=== PATIENT | male | born 1990 | race African-American/Black ===

== ENCOUNTER 2023-03-24 07:33 | Emergency (ER) | payer MEDICAID, OTHER, SELFPAY ==
--- NOTE | ~2023-03-24 | XR_ITS ---
EXAMINATION: XR CHEST CLINICAL INFORMATION: Tachypnea. COMPARISON: None available. TECHNIQUE: 2 views of the chest were obtained. FINDINGS: No significant abnormality is noted involving the heart, lungs, mediastinum, bony thorax or soft tissues. XR/XR chest 2V IMPRESSION: No acute cardiopulmonary process.
[2023-03-24 07:38] VITALS: BP 174/103; PULSE 103; RESP 32; TEMP 36.9; O2SAT 100; BMI 42.1
--- NOTE | 2023-03-24 07:41 | ED.GENADULT ---
HPI - General Adult General Chief complaint: Anxiety Stated complaint: SOB Time Seen by Provider: 03/24/23 07:35 Source: patient Mode of arrival: ambulatory Limitations: no limitations History of Present Illness HPI narrative: Patient is a 32-year-old male with history of panic attacks presenting to the emergency department with shortness of breath. Patient reports that after he and his daughter ate the same food yesterday, they both developed nausea, vomiting, and diarrhea last night. 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 Patient states that he did not want to call out sick as he just started a new job. He reports that on his way to the emergency department he developed shortness of breath an tingling to the fingers of both hands. He denies any fevers or abdominal pain. He denies any chest pain. He denies current nausea. MD complaint: tachypnea, nausea, vomiting, diarrhea Onset (ago): hour(s) Location: chest and abdomen Radiation: non-radiation Associated symptoms: nausea/vomiting and shortness of breath Treatments prior to arrival: none Related Data Previous Rx's Medication Instructions Recorded ondansetron 4 mg disintegrating 4 mg PO Q8H PRN nausea and 03/24/23 tablet vomiting #10 tabs Allergies Allergy/AdvReac Type Severity Reaction Status Date / Time No Known Allergies Allergy Verified 03/24/23 07:43 Review of Systems Review of Systems: Yes all other systems are reviewed and are negative Constitutional: Constitutional: Reports as per HPI, Denies chills, Denies excessive sweating, Denies fever(s), Denies headache(s) and Denies weakness Eyes: Eyes: Reports no additional eye complaints ENT: Reports system reviewed and no additional complaints, except as documented, Denies dizziness and Denies headache(s) Cardiovascular: Cardiovascular: Denies Abdominal Distension, Denies chest pain, Denies lightheadedness, Denies Loss of Consciousness, Denies palpitations and Reports dyspnea Respiratory: Respiratory: Denies cough, Reports dyspnea and Denies wheezing Gastrointestinal: Gastrointestinal: Denies abdominal pain, Denies melena, Denies hematochezia, Denies coffee ground emesis, Reports diarrhea, Reports vomiting and Denies hematemesis Genitourinary: Genitourinary: Reports no additional male genitourinary complaints Musculoskeletal: Musculoskeletal: Reports numbness and Reports tingling Comments: numbness and tingling to all fingers Integumentary/Breasts: Skin/Breast: Reports system reviewed and no additional complaints, except as docu Neurologic: Reports system reviewed and no additional complaints, except as documented, Denies dizziness, Denies headache(s), Reports numbness, Reports tingling and Denies weakness Psychiatric: Psychiatric: Reports no additional psychiatric complaints Endocrine: Endocrine: Denies excessive sweating and Denies palpitations Hematologic/Lymphatic: Hematologic/Lymphatic: Reports no additional hematologic/lymphatic complaints Allergic/Immunologic: Allergic/Immunologic: Reports no additional allergic/immunologic complaints and Denies wheezing PMF Social History Social History Advance Directives: No Advance Directives Information Provided: Yes Physical Exam ED Vital Signs: Vital Signs - 24 hr 03/24/23 07:38 03/24/23 08:22 Temperature 98.4 F 97.9 F Pulse Rate 103 H 74 Respiratory Rate 32 H 16 Blood Pressure 174/103 H 127/72 Pulse Oximetry 100 99 Oxygen Delivery Method Room Air Room Air BMI result Body Mass Index 42.1 Const General: cooperative, healthy appearing and no acute distress Orientation/consciousness: oriented to person, oriented to place, oriented to time and patient oriented x3 Limitations: no limitations HENMT Head: Yes normocephalic and Yes atraumatic Ears: external ears normal General nose exam: Normal external nose present Face and sinus: Yes face symmetric Mouth: Normal oral and palatal mucosa present, lip normal, tongue normal, oropharynx normal, moist mucous membranes, no drooling, no muffled voice and No restricted motion Throat: Yes posterior oropharynx normal, Yes tonsils normal, Yes uvula midline and No uvular edema Eyes Sclerae: scleral abnormal bilateral scleral injection diffuse Pupils: Equal, round and reactive pupils present EOM: EOMs intact bilaterally Neck Neck: Yes normal visual inspection and Yes supple Chest Chest palpation & inspection: normal inspection of the chest and normal palpation of entire chest wall Resp Other: Patient able to slow respiratory rate with verbal redirection. Effort & Inspection: normal respiratory effort, able to speak in complete sentences, no cough, no respiratory distress, no retractions, tachypneic, no tripod positioning and no use of accessory muscles Auscultation: clear to auscultation bilaterally, no wheezes and lung sounds not diminished Cardio Rate: tachycardic (mildly tachycardic) Rhythm: regular rhythm Heart sounds: S1 normal heart sound present and S2 normal heart sound present Peripheral pulses: Peripheral pulses 2+ throughout GI Inspection: Yes normal to inspection Palpation (GI): Soft to palpation, nontender, no guarding, No hepatosplenomegaly present, no hernias, no masses and No Rebound tenderness present Auscultation: normoactive bowel sounds General: Yes no CVA tenderness Back/Spine/Pelvis Back: no CVA tenderness Skin General skin exam: elasticity normal and turgor normal Neuro General: oriented to person, oriented to place, oriented to time, patient oriented x3, moves all extremities, no focal motor deficits and CN's II-XI intact bilaterally Cranial nerves: Yes Equal, round and reactive pupils present Cognition (Neuro): normal cognition Extrem Other: no carpal-pedal spasms General: Yes full ROM, Yes no pedal edema and Yes no calf tenderness Right upper extremity: Extremity exam: right hand Details: normal to inspection, neuromotor exam normal, neurosensory exam normal, vascular exam Details: radial pulse present, ulnar pulse present and normal capillary refill and normal ROM of fingers Left upper extremity: normal to inspection, normal capillary refill and hand Details: normal to inspection, normal capillary refill, neuromotor exam normal, neurosensory exam normal and normal ROM of fingers Psych Mental Status: mental status grossly normal Affect: normal affect Thought process: Normal thought process present Course Reevaluation(s) Reevaluation #1: Patient much more comfortable, no longer tachypneic or tachycardic, labs reassuring. Will obtain chest x-ray. Time: 08:22 Reevaluation #2: FINDINGS: No significant abnormality is noted involving the heart, lungs, mediastinum, bony thorax or soft tissues. XR/XR chest 2V IMPRESSION: No acute cardiopulmonary process. Feel patient is safe for discharge home at this time. Instructed patient to follow-up with PCP within the next 2 days. Will prescribe Zofran as needed for nausea. Return precautions discussed at bedside. Medical Decision Making Medical Decision Making MDM Narrative: Patient is a 32-year-old male with history of panic attacks presenting to the emergency department with shortness of breath. On exam patient is awake, A+Ox3, nontoxic appearing, normal neurological exam without focal deficits, tachypneic though is able to slow respirations with verbal redirection, mildly tachycardic and hypertensive, afebrile, lungs CTA throughtout, abdomen soft and nontender, no rebound tenderness or guarding, full ROM to all fingers with cap refill <2 seconds. Low risk Wells score. Reported history and physical exam findings most consistent with viral gastroenteritis with concurrent anxiety. Unlikely anaphylaxis, ACS, CHF, asthma, PE, pneumothorax based on exam findings. Low suspicion for sepsis. Plan: labs, reassess Please refer to course for remaining clinical decision making. Differential Diagnosis Differential Diagnoses: The differential diagnosis associated with the presentation includes As above. Lab Data MDM Lab Attestation statement: I reviewed the patient's lab results. 03/24/23 07:53 03/24/23 07:53 Labs: Lab Results 03/24/23 03/24/23 Range/Units 07:53 07:53 WBC 10.2 (4.8-10.8) X10*3/uL RBC 4.97 (4.60-5.80) X10*6/uL Hgb 15.9 (14.0-18.0) g/dl Hct 46.7 (42.0-52.0) % MCV 94.0 (80.0-98.0) fL MCH 32.0 (27.0-33.0) pg MCHC 34.0 (31.0-36.0) g/dl RDW 13.2 (11.0-16.0) % Plt Count 251 (160-400) X10*3/uL MPV 10.5 (9.4-12.4) fL Immature Gran % (Auto) 0.4 (0.0-0.4) % Neut % (Auto) 55.3 (45-73) % Lymph % (Auto) 34.5 (20-40) % [place] % (Auto) 7.9 (2-11) % Eos % (Auto) 1.7 (0-4) % Baso % (Auto) 0.2 (0-2) % Lymph # (Auto) 3.5 (1.2-4.9) X10*3/uL [place] # (Auto) 0.8 (0.1-1.2) X10*3/uL Eos # (Auto) 0.2 (0.0-0.4) X10*3/uL Baso # (Auto) 0.0 (0.0-0.2) X10*3/uL Abs Immat Gran (auto) 0.04 H (0.00-0.03) X10*3/uL Absolute Neuts (auto) 5.7 (2.0-8.3) x10*3/uL Absolute Nucleated RBC 0.000 (0.0-0.012) X10*3/uL Nucleated RBC % (auto) 0.0 (0.0-0.2) /100WBC Sodium 139 (135-145) mmol/L Potassium 3.7 (3.3-5.1) mmol/L Chloride 108 (96-108) mmol/L Carbon Dioxide 18 L (22-29) mmol/L Anion Gap 17 (12-20) BUN 8 L (9-16) mg/dL Creatinine 1.05 (0.5-1.4) mg/dL Estim Creat Clear Calc 140.1 Estimated GFR > 60 Random Glucose 112 (60-115) mg/dL Calcium 9.8 (8.4-10.2) mg/dL Magnesium 1.8 (1.6-2.6) mg/dL Total Bilirubin 0.5 (0.0-1.0) mg/dL AST 24 (5-37) U/L ALT 6 (0-40) U/L Alkaline Phosphatase 82 (39-117) U/L Total Protein 7.9 (6.5-8.0) g/dL Albumin 4.5 (3.5-5.0) g/dL Lipase 22 (8-78) U/L External Record Review External record reviewed: Inpatient record, Office record and Outpatient record Discharge Plan Discharge Clinical Impression: Acute anxiety, Gastroenteritis Patient Disposition: Home, Self-Care Instructions: Gastroenteritis (DC), Acute Nausea and Vomiting (ED), Acute Diarrhea (ED), Panic Disorder (ED), Anxiety (ED) Additional Instructions: You were evaluated in the emergency department for shortness of breath which is likely related to anxiety. Your labs and x-ray did not show any evidence of a medical condition requiring emergent intervention at this time. You are being prescribed ondansetron which you may take every 8 hours as needed for nausea. You should progress your diet slowly, beginning with clear liquids, then progressing to bland food. Please follow-up with your primary care provider within 2 days. Return to the emergency department if you experience worsening or uncontrolled pain, inability to tolerate fluids by mouth, difficulty breathing, fevers 100.4? F or greater, persistent vomiting, or any other concerning symptoms. Prescriptions: New ondansetron 4 mg tablet,disintegrating 4 mg PO Q8H PRN (Reason: nausea and vomiting) Qty: 10 0RF Stand Alone Forms: Work/School Release
[2023-03-24 07:57] LABS: MANUAL DIFF FLAG NO
[2023-03-24 08:02] LABS: Basophils Percent Auto 0.2 % (0-2); Eosinophils Absolute Auto 0.2 X10*3/uL (0.0-0.4); Eosinophils Percent Auto 1.7 % (0-4); Hematocrit 46.7 % (42.0-52.0); Hemoglobin 15.9 g/dl (14.0-18.0); Imm Gran Abs Auto 0.04 X10*3/uL (0.00-0.03); Imm Gran Pct Auto 0.4 % (0.0-0.4); Lymphocytes Absolute Auto 3.5 X10*3/uL (1.2-4.9); Lymphocytes Percent Auto 34.5 % (20-40); Mean Platelet Volume 10.5 fL (9.4-12.4); Monocytes Absolute Auto 0.8 X10*3/uL (0.1-1.2); Monocytes Percent Auto 7.9 % (2-11); Neutrophils Absolute Auto 5.7 x10*3/uL (2.0-8.3); Neutrophils Percent Auto 55.3 % (45-73); Platelet Count 251 X10*3/uL (160-400); Red Blood Count 4.97 X10*6/uL (4.60-5.80); Red Cell Distribution Width 13.2 % (11.0-16.0); White Blood Count 10.2 X10*3/uL (4.8-10.8)
[2023-03-24 08:14] LABS: Alanine Aminotransferase 6 U/L (0-40); Albumin Level 4.5 g/dL (3.5-5.0); Alkaline Phosphatase 82 U/L (39-117); Anion Gap 17 (12-20); Aspartate Amino Transferase 24 U/L (5-37); Bilirubin Total 0.5 mg/dL (0.0-1.0); Blood Urea Nitrogen 8 mg/dL (9-16); Calcium 9.8 mg/dL (8.4-10.2); Carbon Dioxide 18 mmol/L (22-29); Chloride 108 mmol/L (96-108); Creatinine Clr Calc Pharmacy 140.1; Estimated Glomerular Filt Rate > 60; Glucose Random 112 mg/dL (60-115); Lipase 22 U/L (8-78); Magnesium 1.8 mg/dL (1.6-2.6); Potassium 3.7 mmol/L (3.3-5.1); Sodium 139 mmol/L (135-145); Total Protein 7.9 g/dL (6.5-8.0)
[2023-03-24 08:22] VITALS: BP 127/72; PULSE 74; RESP 16; TEMP 36.6; O2SAT 99
== END 2023-03-24 09:31 | disposition home or self-care (01) ==
PROVIDERS: Registered Nurse Emergency; Emergency Provider Emergency Medicine Emergency Medical Services
DX: K52.9 Noninfective gastroenteritis and colitis, unspecified (principal); F41.1 Generalized anxiety disorder; F43.0 Acute stress reaction; R06.02 Shortness of breath; Z79.899 Other long term (current) drug therapy
CPT/HCPCS: 36415; 71046; 80053; 83690; 83735; 85025; 99283; 99284

== ENCOUNTER 2023-12-21 07:50 | Emergency (ER) | payer OTHER, SELFPAY ==
--- NOTE | ~2023-12-21 | XR_ITS ---
EXAMINATION: XR CHEST CLINICAL INFORMATION: Chest pain COMPARISON: 03/24/2023 TECHNIQUE: 2 views of the chest were obtained. FINDINGS: Lungs are well-inflated and clear. Trachea is midline in position. No interstitial disease, consolidation or mass. No pleural effusion or pneumothorax. Cardiac silhouette and pulmonary vessels are normal in size. The mediastinum and omar have normal contour. The visualized bones and upper abdomen are unremarkable. XR/XR chest 2V IMPRESSION: Lungs have a normal appearance. No acute cardiopulmonary abnormality.
--- NOTE | 2023-12-21 07:53 | ED_ITS ---
HPI - General Adult General Chief complaint: Chest Pain Stated complaint: LETHARGIC,CP Time Seen by Provider: 12/21/23 07:53 Source: patient Mode of arrival: ambulatory Limitations: no limitations History of Present Illness HPI narrative: Patient is a 33 year old assigned male at with a history of anxiety presenting to the emergency department today with chest pain. Patient states that since yesterday he has had lower chest / epigastric pain. Patient states that this has happened before and they told him it was anxiety. Patient denies any dizziness, lightheadedness, abdominal pain, nausea, vomiting, fever, chills, blurry vision, double vision, loss of vision, difficulty breathing, shortness of breath, back pain, night sweats, pain with urination, increased urinary frequency, increased urinary urgency, blood in his urine or stool, syncope or a near syncopal episode, recent trauma or falls, bowel incontinence, bladder incontinence, bowel retention, bladder retention, or any other complaints at this time. Onset (ago): day(s) (1) Location: chest Severity: mild Severity scale (1-10): 3 Quality: stabbing Pain Consistency: constant Relieving factors: none Exacerbating factors: none Associated symptoms: chest pain Treatments prior to arrival: none Related Data Previous Rx's Medication Instructions Recorded ondansetron 4 mg disintegrating 4 mg PO Q8H PRN nausea and 03/24/23 tablet vomiting #10 tabs Allergies Allergy/AdvReac Type Severity Reaction Status Date / Time No Known Allergies Allergy Verified 03/24/23 07:43 Review of Systems 2 Constitutional: Constitutional: Reports no additional constitutional complaints, Denies chills, Denies fever(s) and Denies night sweats Eyes: Eyes: Reports no additional eye complaints, Denies blurry vision, Denies change in vision, Denies diplopia, Denies eye discharge, Denies loss of vision and Denies eye pain ENT: Denies dizziness Cardiovascular: Cardiovascular: Reports no additional cardiovascular complaints, Reports chest pain, Denies lightheadedness, Denies Loss of Consciousness and Denies dyspnea Respiratory: Respiratory: Reports no additional respiratory complaints and Denies dyspnea Gastrointestinal: Gastrointestinal: Reports no additional gastrointestinal complaints, Denies abdominal pain, Denies melena, Denies hematochezia, Denies change in bowel habits and Denies change in stool character Genitourinary: Genitourinary: Reports no additional male genitourinary complaints, Denies hematuria, Denies oliguria, Denies difficulty urinating, Denies dysuria, Denies urinary frequency, Denies urinary hesitancy, Denies urinary incontinence and Denies urinary urgency Musculoskeletal: Musculoskeletal: Reports no additional musculoskeletal complaints, Denies numbness and Denies tingling Neurologic: Denies dizziness, Denies loss of vision, Denies numbness and Denies tingling Psychiatric: Psychiatric: Reports no additional psychiatric complaints Endocrine: Endocrine: Reports no additional endocrine complaints Hematologic/Lymphatic: Hematologic/Lymphatic: Reports no additional hematologic/lymphatic complaints Allergic/Immunologic: Allergic/Immunologic: Reports no additional allergic/immunologic complaints PMFSH Past Medical History Attestation statement: The following information was validated with the patient. Source: old records reviewed and nursing notes reviewed Social History Social History Smoked in Last 30 Days: Yes Use of substances other than those prescribed or required for medical reasons: No Advance Directives: No Advance Directives Information Provided: No Physical Exam ED Vital Signs: Vital Signs - 24 hr 12/21/23 08:10 12/21/23 09:36 Temperature 98.5 F 97.8 F Pulse Rate 58 71 Respiratory Rate 16 14 Blood Pressure 138/87 130/83 Pulse Oximetry 94 99 Oxygen Delivery Method Room Air Room Air BMI result Body Mass Index 43.1 Const General: cooperative, no acute distress, alert and awake Nutritional Appearance: well nourished Orientation/consciousness: patient oriented x3 Limitations: no limitations [facility] Head: Yes normal to inspection and Yes atraumatic Ears: hearing grossly normal bilaterally and external ears normal General nose exam: Normal external nose present, no nasal discharge noted and no epistaxis Face and sinus: Yes normal facial exam, No abrasion and No laceration Mouth: Normal oral and palatal mucosa present, no drooling and no muffled voice Eyes General: appearance normal, both eyes and all related structures Periorbital: periorbital findings normal Eyelids: Yes eyelids normal Conjunctivae: conjunctivae normal Pupils: Equal, round and reactive pupils present EOM: EOMs intact bilaterally Neck Neck: Yes normal visual inspection, Yes full ROM and Yes no lymphadenopathy Chest Chest palpation & inspection: normal inspection of the chest Resp Effort & Inspection: normal respiratory effort and able to speak in complete sentences Auscultation: clear to auscultation bilaterally Cardio Rate: regular rate Rhythm: regular rhythm GI Inspection: Yes normal to inspection Neuro General: patient oriented x3 and moves all extremities Cranial nerves: Yes Equal, round and reactive pupils present Cognition (Neuro): normal cognition Motor exam (neuro): 5/5 motor strength present throughout Sensory Exam: Normal double simultaneous stimulation for sensation Coordination: [id number] test normal Extrem General: Yes normal to inspection, Yes full ROM and Yes capillary refill normal Psych Appearance: grossly normal Mental Status: mental status grossly normal Affect: normal affect Attitude: cooperative Thought process: Normal thought process present Thought content: Normal thought content present Insight: Good insight present (Psych) Medications Administered Discontinued Medications Generic Name Dose Route Start Last Admin Trade Name Freq PRN Reason Stop Dose Admin Al Hydroxide/Mg Hydroxide 15 ml 12/21/23 07:59 12/21/23 09:18 Magnesium Hydrox/Alum Hydrox 30 Ml Oral.Susp PO 12/21/23 08:00 15 ml ONCE ONE Administration Pantoprazole Sodium 40 mg 12/21/23 07:59 12/21/23 09:19 Pantoprazole Sodium 40 Mg/10 Ml Vial IVPUSH 12/21/23 08:00 40 mg ONCE ONE Administration Medical Decision Making Medical Decision Making [facility] Narrative: Patient is a 33 year old assigned male at with a history of anxiety presenting to the emergency department today with chest pain. Patient's physical exam was unremarkable. Patient's blood work was unremarkable. Patient's urine showed no acute process. Patient's EKG was unremarkable. Patient's chest x-ray showed no acute process. I explained my physical exam findings as well as all test results to the patient. I answered all questions asked by the patient. I stressed the importance of the patient taking his medication as prescribed. I stressed the importance of the patient following up with his primary care provider. I stressed the importance of the patient returning to the emergency department immediately if his symptoms were to worsen or if he were to develop any dizziness, shortness of breath, difficulty breathing, chest pain, blurry vision, loss of vision, nausea, vomiting, abdominal pain, fever, chills, back pain, or any other complaints. Patient verbalized agreement and understanding with this treatment plan and discharge. Differential Diagnosis Differential Diagnoses: The differential diagnosis associated with the presentation includes Atypical chest pain Chest pain NSTEMI STEMI GERD Admission/Observation Consideration of admission/observation: Escalation of care including admission/observation considered Patient would have been admitted to the hospital had his work up had any findings where hospital admission was appropriate and his clinical presentation warranted hospital admission. Lab Data [facility] Lab Attestation statement: I reviewed the patient's lab results. My interpretation of these results are in the [facility] Rationale portion of this note. 12/21/23 08:47 12/21/23 08:47 Labs: Lab Results 12/21/23 12/21/23 Range/Units 08:47 09:11 WBC 8.0 (4.8-10.8) X10*3/uL RBC 4.80 (4.60-5.80) X10*6/uL Hgb 15.4 (14.0-18.0) g/dl Hct 44.3 (42.0-52.0) % MCV 92.3 (80.0-98.0) fL MCH 32.1 (27.0-33.0) pg MCHC 34.8 (31.0-36.0) g/dl RDW 13.0 (11.0-16.0) % Plt Count 218 (160-400) X10*3/uL MPV 10.3 (9.4-12.4) fL Immature Gran % (Auto) 0.4 (0.0-0.4) % Neut % (Auto) 63.5 (45-73) % Lymph % (Auto) 27.3 (20-40) % [place] % (Auto) 7.2 (2-11) % Eos % (Auto) 1.4 (0-4) % Baso % (Auto) 0.2 (0-2) % Lymph # (Auto) 2.2 (1.2-4.9) X10*3/uL [place] # (Auto) 0.6 (0.1-1.2) X10*3/uL Eos # (Auto) 0.1 (0.0-0.4) X10*3/uL Baso # (Auto) 0.0 (0.0-0.2) X10*3/uL Abs Immat Gran (auto) 0.03 (0.00-0.03) X10*3/uL Absolute Neuts (auto) 5.1 (2.0-8.3) x10*3/uL Absolute Nucleated RBC 0.000 (0.0-0.012) X10*3/uL Nucleated RBC % (auto) 0.0 (0.0-0.2) /100WBC Sodium 140 (135-145) mmol/L Potassium 3.8 (3.3-5.1) mmol/L Chloride 108 (96-108) mmol/L Carbon Dioxide 22 (22-29) mmol/L Anion Gap 14 (12-20) BUN 12 (9-16) mg/dL Creatinine 0.89 (0.5-1.4) mg/dL Estim Creat Clear Calc 165.8 Estimated GFR > 60 Random Glucose 98 (60-115) mg/dL Calcium 9.9 (8.4-10.2) mg/dL Magnesium 1.8 (1.6-2.6) mg/dL Total Bilirubin 0.4 (0.0-1.0) mg/dL AST 25 (5-37) U/L ALT 7 (0-40) U/L Alkaline Phosphatase 78 (39-117) U/L Troponin I High Sens < 2.7 (<3.5-35.0) ng/L B-Natriuretic Peptide 22 (<100) pg/mL Total Protein 7.9 (6.5-8.0) g/dL Albumin 4.3 (3.5-5.0) g/dL Urine Color Yellow Urine Appearance Clear Urine pH 7.5 (5.0-9.0) Ur Specific [place] 1.020 (1.005-1.025) Urine Protein Negative (Neg-Trace) mg/dL Urine Glucose (UA) Negative (Negative) mg/dL Urine Ketones Negative (Negative) mg/dL Urine Blood Trace H (Negative) Urine Nitrite Negative (Negative) Ur Leukocyte Esterase Negative (Negative) Urine RBC 6-10 H (0-2) /HPF Urine WBC 0-5 (0-5) /HPF Ur Squamous Epith Cells 0-2 (0-2) /HPF Urine Bacteria None Seen (None Seen) Hyaline Casts 0-2 (0-2) /LPF Influenza Type A (PCR) NEGATIVE (Negative) Influenza Type B (PCR) NEGATIVE (Negative) RSV RNA Qual (PCR) NEGATIVE (Negative) SARS-CoV-2 RNA (RT-PCR) NEGATIVE (Negative) Independent Interpretation I performed an independent interpretation of an: EKG and Plain X-Ray Interpretation: My interpretation is in agreement with the radiologist's impression of this imaging study. - EXAMINATION: XR CHEST CLINICAL INFORMATION: Chest pain COMPARISON: 03/24/2023 TECHNIQUE: 2 views of the chest were obtained. FINDINGS: Lungs are well-inflated and clear. Trachea is midline in position. No interstitial disease, consolidation or mass. No pleural effusion or pneumothorax. Cardiac silhouette and pulmonary vessels are normal in size. The mediastinum and omar have normal contour. The visualized bones and upper abdomen are unremarkable. XR/XR chest 2V IMPRESSION: Lungs have a normal appearance. No acute cardiopulmonary abnormality. Dictated By: Luis Quick MD Signed By: Electronically signed by Luis Quick MD 12/21/23 0855 - Vent. Rate: 075 BPM Atrial Rate: 075 BPM P-R Int: 170 ms QRS Dur: 084 ms QT Int: 370 ms P-R-T Axes: 050 016 022 degrees QTc Int: 413 ms Normal sinus rhythm Early repolarization Normal ECG No previous ECGs available DD/ 0804 Radiology Impression Discussion of test interpretation with radiology: I have reviewed the radiologist's reading. Discharge Plan Discharge Clinical Impression: Atypical chest pain Patient Disposition: Home, Self-Care Instructions: Chest Pain (ED) Additional Instructions: Follow up with your primary care provider. Return to the emergency department immediately if your symptoms worsen or if you develop any dizziness, shortness of breath, difficulty breathing, chest pain, blurry vision, loss of vision, nausea, vomiting, abdominal pain, fever, chills, back pain, or any other complaints. Prescriptions: No Action ondansetron 4 mg tablet,disintegrating 4 mg PO Q8H PRN (Reason: nausea and vomiting) Qty: 10 0RF Referrals: [facility] [place] Family Medicine [Provider Group] (Call to establish and follow up with a primary care provider. If you already have a primary care provider, please follow up with them.) [facility] [place] Primary [facility] [Provider Group] (Call to establish and follow up with a primary care provider. If you already have a primary care provider, please follow up with them.) [facility] [place] Primary [facility] [Provider Group] (Call to establish and follow up with a primary care provider. If you already have a primary care provider, please follow up with them.) Stand Alone Forms: Work/School Release Interventions: ED Discharge Assessment Last Done: 12/21/23 10:27 Discharge Date/Time: 12/21/23 10:33 Print Language: Ukrainian
--- NOTE | 2023-12-21 07:55 | ECG_ITS ---
Test Reason : chest pain Blood Pressure : / mmHG Vent. Rate : 075 BPM Atrial Rate : 075 BPM P-R Int : 170 ms QRS Dur : 084 ms QT Int : 370 ms P-R-T Axes : 050 016 022 degrees QTc Int : 413 ms Normal sinus rhythm Early repolarization Normal ECG No previous ECGs available Referred By: Annette Aguillon Electronically Signed By:Edgardo Salvador
[2023-12-21 07:56] VITALS: BP 140/100; PULSE 88; O2SAT 100
[2023-12-21 08:10] VITALS: BP 138/87; PULSE 58; RESP 16; TEMP 36.9; O2SAT 94; BMI 43.1
[2023-12-21 08:14] VITALS: PULSE 22
[2023-12-21 08:52] LABS: MANUAL DIFF FLAG NO
[2023-12-21 08:54] LABS: Basophils Percent Auto 0.2 % (0-2); Eosinophils Absolute Auto 0.1 X10*3/uL (0.0-0.4); Eosinophils Percent Auto 1.4 % (0-4); Hematocrit 44.3 % (42.0-52.0); Hemoglobin 15.4 g/dl (14.0-18.0); Imm Gran Abs Auto 0.03 X10*3/uL (0.00-0.03); Imm Gran Pct Auto 0.4 % (0.0-0.4); Lymphocytes Absolute Auto 2.2 X10*3/uL (1.2-4.9); Lymphocytes Percent Auto 27.3 % (20-40); Mean Corpuscular HGB Conc 34.8 g/dl (31.0-36.0); Mean Corpuscular Hemoglobin 32.1 pg (27.0-33.0); Mean Corpuscular Volume 92.3 fL (80.0-98.0); Mean Platelet Volume 10.3 fL (9.4-12.4); Monocytes Absolute Auto 0.6 X10*3/uL (0.1-1.2); Monocytes Percent Auto 7.2 % (2-11); Neutrophils Absolute Auto 5.1 x10*3/uL (2.0-8.3); Neutrophils Percent Auto 63.5 % (45-73); Platelet Count 218 X10*3/uL (160-400)
[2023-12-21 09:07] LABS: Alanine Aminotransferase 7 U/L (0-40); Albumin Level 4.3 g/dL (3.5-5.0); Alkaline Phosphatase 78 U/L (39-117); Anion Gap 14 (12-20); Aspartate Amino Transferase 25 U/L (5-37); Bilirubin Total 0.4 mg/dL (0.0-1.0); Blood Urea Nitrogen 12 mg/dL (9-16); Calcium 9.9 mg/dL (8.4-10.2); Carbon Dioxide 22 mmol/L (22-29); Chloride 108 mmol/L (96-108); Creatinine Clr Calc Pharmacy 165.8; Estimated Glomerular Filt Rate > 60; Glucose Random 98 mg/dL (60-115); Magnesium 1.8 mg/dL (1.6-2.6); Potassium 3.8 mmol/L (3.3-5.1); Sodium 140 mmol/L (135-145); Total Protein 7.9 g/dL (6.5-8.0)
[2023-12-21 09:13] LABS: B Type Natriuretic Peptide 22 pg/mL (<100)
[2023-12-21 09:15] LABS: Troponin-I High Sensitivity < 2.7 ng/L (<3.5-35.0)
[2023-12-21] MEDS: Magnesium Hydrox/Alum Hydrox 30 ML ORAL.SUSP 15 ML PO (09:18)
[2023-12-21 09:19] LABS: Appearance Urine Clear; Color Urine Yellow; Glucose Urine UA Negative (Negative); Leukocyte Esterase Urine Negative (Negative); Nitrite Urine Negative (Negative); PH 7.5 (5.0-9.0); UMIC TRIGGER UACC YES; Urine Blood Trace (Negative); Urine Ketones Negative (Negative); Urine Protein Negative (Neg-Trace)
[2023-12-21] MEDS: Pantoprazole Sodium 40 MG/10 ML VIAL IVPUSH (09:19)
[2023-12-21 09:23] LABS: Bacteria Urine None Seen (None Seen); Hyaline Casts Urine 0-2 /LPF (0-2); Squamous Epithelial Cell Urine 0-2 /HPF (0-2); WBC Urine 0-5 /HPF (0-5)
[2023-12-21 09:36] VITALS: BP 130/83; PULSE 71; RESP 14; TEMP 36.6; O2SAT 99
[2023-12-21 09:48] LABS: Influenza A PCR NEGATIVE (Negative); Influenza B PCR NEGATIVE (Negative); Resp Syncy Virus RNA Qual PCR NEGATIVE (Negative); SARS COV2 PCR INHOUSE NEGATIVE (Negative)
== END 2023-12-21 10:33 | disposition home or self-care (01) ==
PROVIDERS: Physician Assistant Medical; Emergency Provider Emergency Medicine
DX: R07.89 Other chest pain (principal); Z11.52 Encounter for screening for COVID-19; Z20.828 Contact with and (suspected) exposure to other viral communicable diseases
CPT/HCPCS: 0241U; 36415; 71046; 80053; 81001; 83735; 83880; 84484; 85025; 93005; 96374; 99284; 99285; C9113

== ENCOUNTER → 2023-12-21 07:55 | Outpatient (BNV) | payer OTHER, SELFPAY | PROVIDERS: Emergency Provider Emergency Medicine; Visit Provider Internal Medicine Cardiovascular Disease | DX: R07.9 Chest pain, unspecified (principal) | CPT/HCPCS: 93010 ==

== ENCOUNTER 2024-09-05 10:26 | Emergency (ER) | payer OTHER, SELFPAY ==
--- NOTE | ~2024-09-05 | CT_ITS ---
CT HEAD WITHOUT CONTRAST CT FACIAL BONES WITHOUT CONTRAST CLINICAL INFORMATION: Pain on the frontal sinus . Frontal headache since 3 weeks. COMPARISON: None TECHNIQUE: Contiguous axial imaging was performed from the skull base to vertex without intravenous administration of contrast. Contiguous axial imaging of the facial bones was performed without intravenous administration of contrast. Coronal and sagittal reformats were obtained at the acquisition workstation. This CT examination was performed using dose optimization techniques as appropriate, variously including the following: * Automated exposure control * Adjustment of mA and/or kV according to patient size (this includes techniques or standardized protocols for targeted exams where dose is matched to indication/reason for exam; i.e. extremities or head) Use of iterative reconstruction technique DLP: 816 mGy-cm FINDINGS: Head: There is no evidence of acute intracranial hemorrhage or edematous territorial infarction. Page-white matter differentiation appears preserved. The ventricles are normal in morphology and size. No evidence for obstructive hydrocephalus. No abnormal mass effect or midline shift. No extra-axial fluid collections. No acute soft tissue or osseous abnormalities. Facial bones: No acute maxillofacial bone fractures. S-shaped deviation of the nasal septum. There is near complete opacification of bilateral frontal sinuses with obstruction of the frontal recesses. There is near complete opacification of bilateral anterior ethmoid air cells. There is complete opacification of the left maxillary sinus with obstruction of the left ostiomeatal unit. Mild mucosal thickening right maxillary sinus with obstruction of the right ostiomeatal unit. Changes of chronic osteitis involving the delong of the left maxillary sinus and bilateral frontal sinuses. The sphenoid sinuses appear clear with mild mucosal thickening at the sphenoethmoidal recesses. 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 The mastoids are well-aerated. The bony orbital rim appears intact bilaterally. Punctate focus of calcification along the posterior intraorbital segment of the left optic nerve. The right optic nerve is intact. Bilateral extraocular muscles appear unremarkable. Bilateral temporomandibular joints are intact. No acute soft tissue abnormality. CT/CT facial bones wo IV con IMPRESSION: 1. No acute intracranial pathology. 2. 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 3. Near complete opacification of the right ghazala bullosa. Electronically signed by: Chuy Knowles MD 09/05/2024 01:55 PM EDT
[2024-09-05 11:20] VITALS: BP 150/75; PULSE 80; RESP 16; TEMP 36.6; O2SAT 98; BMI 41.6
--- NOTE | 2024-09-05 11:52 | ED_ITS ---
HPI - Headache General Chief Complaint: Headache Stated Complaint: migraine Time Seen by Provider: 09/05/24 11:38 Source: patient, RN notes reviewed and old records reviewed Mode of arrival: ambulatory Limitations: no limitations History of Present Illness ED Provider: RALPH STRINGER PA-C HPI Narrative: 34-year-old male with no significant pmhx presents to the ED today for evaluation of frontal headache, sinus pain and nasal congestion x3 weeks. Symptoms started after having influenza 1 month ago. Admits to associated blurred vision and dizziness when his headache becomes severe. No history of similar. He has been taking Motrin and Tylenol at home which temporarily relieves his pain. Denies fever, chills, neck pain, scalp tenderness, jaw claudication, nausea or vomiting. Denies injury or trauma to the head. Denies known sick contacts. No difficulty ambulating. Related Data Previous Rx's ?Medication ?Instructions ?Recorded ondansetron 4 mg disintegrating 4 mg PO Q8H PRN nausea and 03/24/23 tablet vomiting #10 tabs amoxicillin 875 mg-potassium 1 tab PO BID 7 days #14 tabs 09/05/24 clavulanate 125 mg tablet gahyzkz-lwcnwoqpcgqmp-qdvnzamn 250 1 tab PO Q6H PRN headache #10 tabs 09/05/24 mg-250 mg-65 mg tablet (Excedrin Migraine) doxycycline hyclate 100 mg capsule 100 mg PO BID 7 days #14 caps 09/05/24 prednisone 20 mg tablet 40 mg (2 x 20 mg) PO DAILY 5 days 09/05/24 #10 tabs Allergies Allergy/AdvReac Type Severity Reaction Status Date / Time No Known Allergies Allergy Verified 09/05/24 11:23 Review of Systems 2 Review of Systems: Constitutional: No fever, chills, fatigue, night sweats, weight changes ENT/Mouth: No ear pain, hearing loss, nasal congestion, sinus pain, rhinorrhea, sore throat Eyes: No eye pain, swelling, redness, vision changes, discharge, photophobia Cardio: No chest pain, palpitations, WHITNEY, orthopnea, peripheral edema Pulm: No SOB, cough, sputum, wheezing, dyspnea, hemoptysis GI: No nausea, vomiting, hematemesis, abdominal pain, diarrhea, constipation, hematochezia, melena : No irregular bleeding, dysuria, frequency, urgency, hesitancy, hematuria, flank pain, urinary flow changes, urinary incontinence or retention MSK: No back pain, neck pain, joint pain, myalgias Skin: No lesions, rashes Neuro: No weakness, numbness, paresthesias, LOC, dizziness, +headache Psych: No anxiety/panic, depression, SI/HI, AH/VH All other systems reviewed and are negative. [facility] Past Medical History Attestation statement: The following information was validated with the patient. Source: old records reviewed and nursing notes reviewed Social History Social History Advance Directives: No Advance Directives Information Provided: Yes Physical Exam 2 Vital Signs: Vital Signs: Last Vital Signs Temp 97.8 F 09/05/24 15:37 Pulse 80 09/05/24 15:37 Resp 16 09/05/24 15:37 BP 150/75 H 09/05/24 15:37 Pulse Ox 98 09/05/24 15:37 O2 Del Method Room Air 09/05/24 15:37 BMI result Body Mass Index 41.6 hypertensive, afebrile General: Well appearing, in no acute distress. Skin: Warm, dry, intact. No rashes or lesions. Head: Normocephalic, atraumatic. EENT: Hearing is intact b/l. Conjunctiva clear. PERRLA. EOM intact. Moist mucous membranes. Exquisitely tender to palpation over frontal sinus. No tenderness to percussion over maxillary sinuses. Neck: Supple without LAD Cardiac: Chest wall symmetric. RRR Lungs: Normal respiratory effort without accessory muscle use. CTA bilaterally Back: No midline spinous or paraspinal tenderness. No step off deformity. Ext: Upper and lower extremities atraumatic, without tenderness, deformity, swelling or erythema. Full ROM throughout Neuro: AOx3. Normal speech. Strength 5/5 intact throughout. Sensation intact to light touch. NV intact distally. Normal zhavrf-ss-psxf, kroz-wg-hncz. Ambulating with steady gait. Psych: Appropriate mood and affect. Responds appropriately to questions. Course Course Course Narrative: 1529 -- CBC with slight leukocytosis to 12.4 without left shift. No anemia. H&H stable. Chemistry without acute electrolyte abnormality requiring intervention. No GERI. Normal liver function. He has tested negative for COVID, flu, RSV. CT head without intracranial bleed or mass. 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 > I did discuss these findings with hospitalist Dr. Cardenas to determine if patient required admission criteria. Recommending outpatient treatment with Augmentin, doxycycline and prednisone which I feel is reasonable as patient's vitals are stable, he is well appearing, and labs do not show left shift. There is no evidence of preseptal or orbital cellulitis on scans or exam. Discussed work up results with patient and he is agreeable with outpatient treatment. I have provided him with a referral to ENT. Advised him to call and establish care. Patient has remained stable throughout ED visit today. Discussed worrisome signs and symptoms and when to return to the ED. All questions answered at this time. Patient is agreeable with disposition and stable for discharge. Medications Administered Discontinued Medications Generic Name Dose Route Start Last Admin Trade Name Freq PRN Reason Stop Dose Admin Diphenhydramine HCl 50 mg 09/05/24 12:22 09/05/24 12:36 Diphenhydramine Hcl 50 Mg/Ml Vial IVPUSH 09/05/24 12:23 50 mg ONCE ONE Administration Ketorolac Tromethamine 15 mg 09/05/24 12:22 09/05/24 12:36 Ketorolac Tromethamine 15 Mg/Ml Vial IVPUSH 09/05/24 12:23 15 mg ONCE ONE Administration Metoclopramide HCl 10 mg 09/05/24 12:22 09/05/24 12:35 Metoclopramide Hcl 10 Mg/2 Ml Vial IVPUSH 09/05/24 12:23 10 mg ONCE ONE Administration Medical Decision Making Medical Decision Making MDM Narrative: 34-year-old male with no significant pmhx presents to the ED today for evaluation of frontal headache, sinus pain and nasal congestion x3 weeks. Hypertensive, afebrile. He is nontoxic appearing and in NAD. Lying comfortably on the exam bed. Exam is nonfocal. Cerebellum intact. PERRLA. positive photophobia. Exquisitely tender to palpation over the frontal sinus. No tenderness to percussion over maxillary sinuses. no scalp tenderness or palpable temporal artery. Differential diagnosis includes sinusitis, migraine vs tension type headache. No headache red flags. Neurologic exam without evidence of meningismus. No focal neurologic findings. Presentation not consistent with acute intracranial bleed including SAH (lack of risk factors, headache history). Presentation not consistent with acute [employer] infection including meningitis or brain abscess. Temporal arteritis unlikely, as is acute angle closure glaucoma given history and physical findings. Presentation not consistent with other acute, emergent causes of headache at this time. Plan for viral swabs, labs, pain control, imaging, and re-evaluation. Differential Diagnosis Differential Diagnoses: The differential diagnosis associated with the presentation includes As above Admission/Observation Not indicated Consult Healthcare Provider Management of the patient was discussed with: Hospitalist (Dr. Cardenas) Lab Data MDM Lab Attestation statement: I reviewed the patient's lab results. As above 09/05/24 12:02 09/05/24 12:02 Labs: Lab Results 09/05/24 Range/Units 12:02 WBC 12.4 H (4.8-10.8) X10*3/uL RBC 4.47 L (4.60-5.80) X10*6/uL Hgb 14.5 (14.0-18.0) g/dl Hct 42.9 (42.0-52.0) % MCV 96.0 (80.0-98.0) fL MCH 32.4 (27.0-33.0) pg MCHC 33.8 (31.0-36.0) g/dl RDW 13.6 (11.0-16.0) % Plt Count 259 (160-400) X10*3/uL MPV 10.3 (9.4-12.4) fL Immature Gran % (Auto) 0.4 (0.0-0.4) % Neut % (Auto) 71.9 (45-73) % Lymph % (Auto) 20.4 (20-40) % [place] % (Auto) 6.0 (2-11) % Eos % (Auto) 1.1 (0-4) % Baso % (Auto) 0.2 (0-2) % Lymph # (Auto) 2.5 (1.2-4.9) X10*3/uL [place] # (Auto) 0.7 (0.1-1.2) X10*3/uL Eos # (Auto) 0.1 (0.0-0.4) X10*3/uL Baso # (Auto) 0.0 (0.0-0.2) X10*3/uL Abs Immat Gran (auto) 0.05 H (0.00-0.03) X10*3/uL Absolute Neuts (auto) 8.9 H (2.0-8.3) x10*3/uL Absolute Nucleated RBC 0.000 (0.0-0.012) X10*3/uL Nucleated RBC % (auto) 0.0 (0.0-0.2) /100WBC Sodium 141 (135-145) mmol/L Potassium 3.7 (3.3-5.1) mmol/L Chloride 106 (96-108) mmol/L Carbon Dioxide 23 (22-29) mmol/L Anion Gap 16 (12-20) BUN 8 L (9-16) mg/dL Creatinine 0.85 (0.5-1.4) mg/dL Estim Creat Clear Calc 168.6 Estimated GFR > 60 Random Glucose 95 (60-115) mg/dL Calcium 9.3 D (8.4-10.2) mg/dL Magnesium 2.0 (1.6-2.6) mg/dL Total Bilirubin 0.3 (0.0-1.0) mg/dL AST 19 (5-37) U/L ALT 6 (0-40) U/L Alkaline Phosphatase 85 (39-117) U/L Total Protein 8.1 H (6.5-8.0) g/dL Albumin 4.2 (3.5-5.0) g/dL Influenza Type A (PCR) NEGATIVE (Negative) Influenza Type B (PCR) NEGATIVE (Negative) RSV RNA Qual (PCR) NEGATIVE (Negative) SARS-CoV-2 RNA (RT-PCR) NEGATIVE (Negative) Independent Interpretation I performed an independent interpretation of an: CT Scan Interpretation: CT head without mass or bleed CT facial bones with extensive sinus disease Radiology Impression Discussion of test interpretation with radiology: I have reviewed the radiologist's reading. Radiologist Impression: CT HEAD WITHOUT CONTRAST CT FACIAL BONES WITHOUT CONTRAST CLINICAL INFORMATION: Pain on the frontal sinus . Frontal headache since 3 weeks. COMPARISON: None TECHNIQUE: Contiguous axial imaging was performed from the skull base to vertex without intravenous administration of contrast. Contiguous axial imaging of the facial bones was performed without intravenous administration of contrast. Coronal and sagittal reformats were obtained at the acquisition workstation. This CT examination was performed using dose optimization techniques as appropriate, variously including the following: * Automated exposure control * Adjustment of mA and/or kV according to patient size (this includes techniques or standardized protocols for targeted exams where dose is matched to indication/reason for exam; i.e. extremities or head) Use of iterative reconstruction technique DLP: 816 mGy-cm FINDINGS: Head: There is no evidence of acute intracranial hemorrhage or edematous territorial infarction. Page-white matter differentiation appears preserved. The ventricles are normal in morphology and size. No evidence for obstructive hydrocephalus. No abnormal mass effect or midline shift. No extra-axial fluid collections. No acute soft tissue or osseous abnormalities. Facial bones: No acute maxillofacial bone fractures. S-shaped deviation of the nasal septum. There is near complete opacification of bilateral frontal sinuses with obstruction of the frontal recesses. There is near complete opacification of bilateral anterior ethmoid air cells. There is complete opacification of the left maxillary sinus with obstruction of the left ostiomeatal unit. Mild mucosal thickening right maxillary sinus with obstruction of the right ostiomeatal unit. Changes of chronic osteitis involving the delong of the left maxillary sinus and bilateral frontal sinuses. The sphenoid sinuses appear clear with mild mucosal thickening at the sphenoethmoidal recesses. 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 The mastoids are well-aerated. The bony orbital rim appears intact bilaterally. Punctate focus of calcification along the posterior intraorbital segment of the left optic nerve. The right optic nerve is intact. Bilateral extraocular muscles appear unremarkable. Bilateral temporomandibular joints are intact. No acute soft tissue abnormality. CT/CT facial bones wo IV con IMPRESSION: 1. No acute intracranial pathology. 2. 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 3. Near complete opacification of the right ghazala bullosa. Electronically signed by: Chuy Knowles MD 09/05/2024 01:55 PM EDT Independent Historian Clinical information obtained from an independent historian. History obtained from or confirmed by: Spouse External Record Review External record reviewed: Inpatient record, Office record, Outpatient record, Prior outpatient labs, Prior outpatient radiology, Primary care record and Outside ED record Prescription Management I considered prescription management with: Pain Medication (Excedrin migraine), Antibiotic (Augmentin, doxycycline) and Other (Prednisone) Social Determinants Patient?s care significantly limited by Social Determinants of Health including: Other Social Determinant of Health Critical Care Time Critical Care Time Critical Care Time: No Discharge Plan Discharge Clinical Impression: Sinusitis Patient Disposition: Home, Self-Care Instructions: Sinusitis (ED) Additional Instructions: Your blood work today shows slightly elevated white blood cell count. Otherwise reassuring. You tested negative for COVID, flu, RSV. CT scan of your facial bones shows extensive sinus disease, consistent with your physical exam findings. I have sent 2 different antibiotics to your pharmacy for treatment. Augmentin is an antibiotic that has been sent to your pharmacy for you to take over the next 7 days. Doxycycline is an antibiotic that has been sent to your pharmacy for you to take over the next 7 days. Take both antibiotics to completion, do not skip any doses or stop taking these early as this may cause infection to persist or worsen. Prednisone is a steroid that has been sent to your pharmacy for you to take as prescribed for inflammation. Excedrin migraine has been sent to your pharmacy for you to take as needed for headache. I have provided you with a referral to an ENT doctor. You will need to follow up with them outpatient. Call them to establish care. They will not call you. Return with new or worsening symptoms. In the case of an emergency call 911. Prescriptions: New doxycycline hyclate 100 mg capsule 100 mg PO BID 7 Days Qty: 14 0RF amoxicillin-pot clavulanate 875-125 mg tablet 1 tab PO BID 7 Days Qty: 14 0RF prednisone 20 mg tablet 40 mg PO DAILY 5 Days Qty: 10 0RF Excedrin Migraine 250-250-65 mg tablet 1 tab PO Q6H PRN (Reason: headache) Qty: 10 0RF No Action ondansetron 4 mg tablet,disintegrating 4 mg PO Q8H PRN (Reason: nausea and vomiting) Qty: 10 0RF Referrals: Chad Hallman [Physician] - 5 days (FINDINGS: Head: There is no evidence of acute intracranial hemorrhage or edematous territorial infarction. Page-white matter differentiation appears preserved. The ventricles are normal in morphology and size. No evidence for obstructive hydrocephalus. No abnormal mass effect or midline shift. No extra-axial fluid collections. No acute soft tissue or osseous abnormalities. Facial bones: No acute maxillofacial bone fractures. S-shaped deviation of the nasal septum. There is near complete opacification of bilateral frontal sinuses with obstruction of the frontal recesses. There is near complete opacification of bilateral anterior ethmoid air cells. There is complete opacification of the left maxillary sinus with obstruction of the left ostiomeatal unit. Mild mucosal thickening right maxillary sinus with obstruction of the right ostiomeatal unit. Changes of chronic osteitis involving the delong of the left maxillary sinus and bilateral frontal sinuses. The sphenoid sinuses appear clear with mild mucosal thickening at the sphenoethmoidal recesses. 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 The mastoids are well-aerated. The bony orbital rim appears intact bilaterally. Punctate focus of calcification along the posterior intraorbital segment of the left optic nerve. The right optic nerve is intact. Bilateral extraocular muscles appear unremarkable. Bilateral temporomandibular joints are intact. No acute soft tissue abnormality. CT/CT facial bones wo IV con IMPRESSION: 1. No acute intracranial pathology. 2. 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 3. Near complete opacification of the right ghazala bullosa.) Stand Alone Forms: Work/School Release Interventions: ED Discharge Assessment Last Done: 09/05/24 15:37 Discharge Date/Time: 09/05/24 15:37 Print Language: Malian
[2024-09-05 12:09] LABS: MANUAL DIFF FLAG NO
[2024-09-05 12:12] LABS: Basophils Percent Auto 0.2 % (0-2); Eosinophils Absolute Auto 0.1 X10*3/uL (0.0-0.4); Eosinophils Percent Auto 1.1 % (0-4); Hematocrit 42.9 % (42.0-52.0); Hemoglobin 14.5 g/dl (14.0-18.0); Imm Gran Abs Auto 0.05 X10*3/uL (0.00-0.03); Imm Gran Pct Auto 0.4 % (0.0-0.4); Lymphocytes Absolute Auto 2.5 X10*3/uL (1.2-4.9); Lymphocytes Percent Auto 20.4 % (20-40); Mean Corpuscular HGB Conc 33.8 g/dl (31.0-36.0); Mean Corpuscular Hemoglobin 32.4 pg (27.0-33.0); Mean Platelet Volume 10.3 fL (9.4-12.4); Monocytes Absolute Auto 0.7 X10*3/uL (0.1-1.2); Neutrophils Absolute Auto 8.9 x10*3/uL (2.0-8.3); Neutrophils Percent Auto 71.9 % (45-73); Platelet Count 259 X10*3/uL (160-400); Red Blood Count 4.47 X10*6/uL (4.60-5.80); Red Cell Distribution Width 13.6 % (11.0-16.0); White Blood Count 12.4 X10*3/uL (4.8-10.8)
[2024-09-05] MEDS: Metoclopramide HCl 10 MG/2 ML VIAL IVPUSH (12:35)
[2024-09-05 12:36] LABS: Alanine Aminotransferase 6 U/L (0-40); Albumin Level 4.2 g/dL (3.5-5.0); Anion Gap 16 (12-20); Aspartate Amino Transferase 19 U/L (5-37); Bilirubin Total 0.3 mg/dL (0.0-1.0); Blood Urea Nitrogen 8 mg/dL (9-16); Calcium 9.3 mg/dL (8.4-10.2); Carbon Dioxide 23 mmol/L (22-29); Chloride 106 mmol/L (96-108); Creatinine Clr Calc Pharmacy 168.6; Estimated Glomerular Filt Rate > 60; Glucose Random 95 mg/dL (60-115); Potassium 3.7 mmol/L (3.3-5.1); Sodium 141 mmol/L (135-145); Total Protein 8.1 g/dL (6.5-8.0)
[2024-09-05] MEDS: diphenhydrAMINE HCL 50 MG/ML VIAL IVPUSH (12:36)
[2024-09-05] MEDS: Ketorolac Tromethamine 15 MG/ML VIAL IVPUSH (12:36)
[2024-09-05 12:42] LABS: Alkaline Phosphatase 85 U/L (39-117)
[2024-09-05 12:50] LABS: Influenza A PCR NEGATIVE (Negative); Influenza B PCR NEGATIVE (Negative); Resp Syncy Virus RNA Qual PCR NEGATIVE (Negative); SARS COV2 PCR INHOUSE NEGATIVE (Negative)
[2024-09-05 15:37] VITALS: BP 150/75; PULSE 80; RESP 16; TEMP 36.6; O2SAT 98
== END 2024-09-05 15:37 | disposition home or self-care (01) ==
PROVIDERS: Physician Assistant Medical; Emergency Provider Emergency Medicine Emergency Medical Services
DX: J32.9 Chronic sinusitis, unspecified (principal); R51.9 Headache, unspecified; H53.8 Other visual disturbances; R42 Dizziness and giddiness; R09.81 Nasal congestion; Z03.818 Encounter for observation for suspected exposure to other biological agents ruled out
CPT/HCPCS: 0241U; 70450; 70486; 80053; 83735; 85025; 96374; 96375; 99283; 99284; J1200; J1885; J2765

== ENCOUNTER 2024-09-28 09:58 | Emergency (ER) | payer OTHER, SELFPAY ==
--- NOTE | ~2024-09-28 | XR_ITS ---
EXAMINATION: 1. Radiographs chest 2. Radiographs abdomen CLINICAL INDICATION: Wheezing. Assess stool burden. COMPARISON: Chest x-ray March 20, 2024 TECHNIQUE: 2 views of the chest and supine views of the abdomen were obtained. FINDINGS: Cardiac silhouette is normal in size. The lungs are well aerated. There is no lobar consolidation. No pleural effusion or pneumothorax. No dilated air-filled loops of small bowel to suggest an obstructive process. There is a mild to moderate stool burden throughout the majority of the colon. No acute osseous abnormality. XR/XR chest 2V IMPRESSION: 1. No acute pulmonary pathology. 2. Mild to moderate stool burden throughout the majority of the colon. Electronically signed by: Milton Tsang MD 09/28/2024 12:04 PM [facility]
--- NOTE | ~2024-09-28 | XR_ITS ---
EXAMINATION: 1. Radiographs chest 2. Radiographs abdomen CLINICAL INDICATION: Wheezing. Assess stool burden. COMPARISON: Chest x-ray March 20, 2024 TECHNIQUE: 2 views of the chest and supine views of the abdomen were obtained. FINDINGS: Cardiac silhouette is normal in size. The lungs are well aerated. There is no lobar consolidation. No pleural effusion or pneumothorax. No dilated air-filled loops of small bowel to suggest an obstructive process. There is a mild to moderate stool burden throughout the majority of the colon. No acute osseous abnormality. XR/XR KUB IMPRESSION: 1. No acute pulmonary pathology. 2. Mild to moderate stool burden throughout the majority of the colon. Electronically signed by: Milton Tsang MD 09/28/2024 12:04 PM [facility]ENDO[facility]
[2024-09-28 10:16] VITALS: BP 115/75; PULSE 74; RESP 18; TEMP 36.4; O2SAT 97; BMI 40.8
[2024-09-28 10:28] LABS: MANUAL DIFF FLAG NO
[2024-09-28 10:29] LABS: Basophils Percent Auto 0.3 % (0-2); Eosinophils Absolute Auto 0.2 X10*3/uL (0.0-0.4); Eosinophils Percent Auto 2.6 % (0-4); Hematocrit 43.9 % (42.0-52.0); Hemoglobin 14.9 g/dl (14.0-18.0); Imm Gran Abs Auto 0.02 X10*3/uL (0.00-0.03); Imm Gran Pct Auto 0.3 % (0.0-0.4); Lymphocytes Absolute Auto 3.2 X10*3/uL (1.2-4.9); Lymphocytes Percent Auto 41.5 % (20-40); Mean Corpuscular HGB Conc 33.9 g/dl (31.0-36.0); Mean Corpuscular Hemoglobin 32.3 pg (27.0-33.0); Mean Platelet Volume 9.9 fL (9.4-12.4); Monocytes Absolute Auto 0.6 X10*3/uL (0.1-1.2); Monocytes Percent Auto 8.4 % (2-11); Neutrophils Absolute Auto 3.6 x10*3/uL (2.0-8.3); Neutrophils Percent Auto 46.9 % (45-73); Platelet Count 222 X10*3/uL (160-400); Red Blood Count 4.62 X10*6/uL (4.60-5.80); Red Cell Distribution Width 13.3 % (11.0-16.0); White Blood Count 7.6 X10*3/uL (4.8-10.8)
--- NOTE | 2024-09-28 10:34 | ED.ABDPAIN ---
HPI - Abdominal Pain General Chief Complaint: Abdominal Pain Stated Complaint: r side pain Time Seen by Provider: 09/28/24 10:24 Source: patient Mode of arrival: ambulatory Limitations: no limitations History of Present Illness ED Provider: Jennifer Colin APRN HPI narrative: 34 y male with no known medical history presents to the ER with complaints of >1 week of sinus congestion, sore throat and cough with clear sputum. Patient reports he was seen here on 09/05 for sinus infection and completed a course of Augmentin and prednisone. Patient reports he felt that he did get some improvement but then his symptoms returned. He reports frequent coughing. Over the last few days complaining of pain in his right lower back which is worsened with deep breathing, coughing and movement. He denies any shortness of breath, chest pain, fevers, leg swelling, leg pain. No urinary symptoms. Has had some constipation. His last BM was 2 days ago. He is taking a probiotic. Denies any abdominal pain or vomiting. No recent travel. No recent hospitalizations. No history of DVT or PE. No family history of same Related Data Previous Rx's ?Medication ?Instructions ?Recorded ondansetron 4 mg disintegrating 4 mg PO Q8H PRN nausea and 03/24/23 tablet vomiting #10 tabs amoxicillin 875 mg-potassium 1 tab PO BID 7 days #14 tabs 09/05/24 clavulanate 125 mg tablet xcaqatd-gzxpwfzsmiwwl-zqffjjtk 250 1 tab PO Q6H PRN headache #10 tabs 09/05/24 mg-250 mg-65 mg tablet (Excedrin Migraine) doxycycline hyclate 100 mg capsule 100 mg PO BID 7 days #14 caps 09/05/24 prednisone 20 mg tablet 40 mg (2 x 20 mg) PO DAILY 5 days 09/05/24 #10 tabs cyclobenzaprine 10 mg tablet 10 mg PO TID PRN muscle spasm #15 09/28/24 tabs docusate sodium 100 mg capsule 100 mg PO DAILY #30 caps 09/28/24 (Colace) polyethylene glycol 3350 17 17 g PO DAILY #119 grams 09/28/24 gram/dose oral powder (Miralax) prednisone 20 mg tablet 40 mg (2 x 20 mg) PO DAILY #10 tabs 09/28/24 Allergies Allergy/AdvReac Type Severity Reaction Status Date / Time No Known Allergies Allergy Verified 09/28/24 10:17 Review of Systems Review of Systems Yes all other systems are reviewed and are negative Constitutional: Reports no additional constitutional complaints, Denies body ache(s), Denies chills, Denies fever(s), Denies headache(s) and Denies weakness Eyes: Reports no additional eye complaints and Denies change in vision Reports system reviewed and no additional complaints, except as documented, Denies dizziness, Denies headache(s), Reports nasal congestion, Denies nasal discharge, Denies neck pain and Reports sore throat Cardiovascular: Reports no additional cardiovascular complaints, Denies chest pain, Denies leg edema and Denies dyspnea Respiratory: Reports no additional respiratory complaints, Reports cough and Denies dyspnea Gastrointestinal: Reports no additional gastrointestinal complaints, Denies abdominal pain, Reports constipation, Denies diarrhea, Denies nausea and Denies vomiting Genitourinary: Denies urinary incontinence Musculoskeletal: Reports no additional musculoskeletal complaints, Reports back pain, Denies arthralgias, Denies joint swelling, Denies neck pain, Denies numbness and Denies tingling Skin/Breast: Reports system reviewed and no additional complaints, except as docu and Denies rash Reports system reviewed and no additional complaints, except as documented, Denies Abnormal speech present, Denies dizziness, Denies headache(s), Denies numbness, Denies tingling and Denies weakness [facility] Past Medical History Attestation statement: The following information was validated with the patient. Source: old records reviewed and nursing notes reviewed Social History Social History Smoked in Last 30 Days: Yes Use of substances other than those prescribed or required for medical reasons: Yes Substance Use Type: Marijuana Advance Directives: No Advance Directives Information Provided: No Do you have a plan to hurt others: No Plan Physical Exam ED Vital Signs: Vital Signs - 24 hr 09/28/24 10:16 09/28/24 11:06 Temperature 97.6 F Pulse Rate 74 84 Respiratory Rate 18 18 Blood Pressure 115/75 Pulse Oximetry 97 Oxygen Delivery Method Room Air BMI result Body Mass Index 40.8 Const General: cooperative, healthy appearing, comfortable and no acute distress Orientation/consciousness: patient oriented x3 Limitations: no limitations HENMT Head: Yes normal to inspection Ears: hearing grossly normal bilaterally and TM's normal bilaterally General nose exam: Normal external nose present Face and sinus: Yes normal facial exam Mouth: Normal oral and palatal mucosa present Throat: Yes posterior oropharynx normal, Yes tonsils normal and Yes uvula midline Eyes General: appearance normal, both eyes and all related structures Pupils: Equal, round and reactive pupils present Neck Neck: Yes normal visual inspection, Yes full ROM, Yes no lymphadenopathy and Yes no meningeal signs Chest Chest palpation & inspection: normal inspection of the chest Resp Effort & Inspection: normal respiratory effort Auscultation: wheezes (right ) expiratory wheezes Cardio Rate: regular rate Rhythm: regular rhythm Peripheral pulses: Peripheral pulses 2+ throughout GI Inspection: Yes normal to inspection Palpation (GI): Soft to palpation and nontender Auscultation: normal bowel sounds Back/Spine/Pelvis Other: TTP right lumbar soft tissue with no CVAT, no midline tenderness/step offs or deformities Thoracic/Lumbar Spine: thoracic and lumbar spine normal to inspection Skin General skin exam: no rashes or lesions noted Neuro General: patient oriented x3, no meningeal signs, no focal motor deficits and normal sensation to monofilament Cranial nerves: Yes Equal, round and reactive pupils present Cognition (Neuro): normal cognition Speech: No Abnormal speech present Gait exam (Neuro): Normal gait present Motor exam (neuro): 5/5 motor strength present throughout Sensory Exam: Normal double simultaneous stimulation for sensation Deep tendon reflexes (DTR's): Right patellar reflex intensity grade: 2+ and Left patellar reflex intensity grade: 2+ Extrem General: Yes normal to inspection, Yes no pedal edema and Yes no calf tenderness Course Course Course Narrative: X-ray of the chest shows no signs of pneumonia. Labs are unremarkable. Urine testing is negative. Viral testing is negative. X-ray of the abdomen shows moderate constipation. Patient be discharged home with bowel regimen. I will also prescribe a muscle relaxants that he can take in conjunction with Motrin or Tylenol for his back pain. As far as his upper respiratory symptoms he can continue albuterol as needed and take the prednisone. Reviewed worrisome signs and symptoms of when to return to the emergency room. Comfortable plan for discharge home. Medical Decision Making Medical Decision Making [facility] Narrative: 34-year-old male here with multiple complaints 1) Sinus congestion, sore throat, cough for about a week with wheezing on exam. Vitals are stable. Will send viral testing, obtain chest x-ray 2) Back pain which presents as muscular worsened with breathing, movement. No reports of trauma. No midline tenderness on exam. No CVA tenderness or complaints of urinary symptoms. Likely secondary to recent viral illness and coughing. 3) constipation. No reports abdominal pain or vomiting. Abdomen soft nontender with normal bowel sounds. 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 09/28/24 10:25 09/28/24 10:25 Labs: Lab Results 09/28/24 09/28/24 09/28/24 Range/Units 10:25 11:07 11:57 WBC 7.6 (4.8-10.8) X10*3/uL RBC 4.62 (4.60-5.80) X10*6/uL Hgb 14.9 (14.0-18.0) g/dl Hct 43.9 (42.0-52.0) % MCV 95.0 (80.0-98.0) fL MCH 32.3 (27.0-33.0) pg MCHC 33.9 (31.0-36.0) g/dl RDW 13.3 (11.0-16.0) % Plt Count 222 (160-400) X10*3/uL MPV 9.9 (9.4-12.4) fL Immature Gran % (Auto) 0.3 (0.0-0.4) % Neut % (Auto) 46.9 (45-73) % Lymph % (Auto) 41.5 H (20-40) % [place] % (Auto) 8.4 (2-11) % Eos % (Auto) 2.6 (0-4) % Baso % (Auto) 0.3 (0-2) % Lymph # (Auto) 3.2 (1.2-4.9) X10*3/uL [place] # (Auto) 0.6 (0.1-1.2) X10*3/uL Eos # (Auto) 0.2 (0.0-0.4) X10*3/uL Baso # (Auto) 0.0 (0.0-0.2) X10*3/uL Abs Immat Gran (auto) 0.02 (0.00-0.03) X10*3/uL Absolute Neuts (auto) 3.6 (2.0-8.3) x10*3/uL Absolute Nucleated RBC 0.000 (0.0-0.012) X10*3/uL Nucleated RBC % (auto) 0.0 (0.0-0.2) /100WBC Sodium 137 (135-145) mmol/L Potassium 4.0 (3.3-5.1) mmol/L Chloride 107 (96-108) mmol/L Carbon Dioxide 23 (22-29) mmol/L Anion Gap 11 L (12-20) BUN 8 L (9-16) mg/dL Creatinine 0.97 (0.5-1.4) mg/dL Estim Creat Clear Calc 146.3 Estimated GFR > 60 Random Glucose 102 (60-115) mg/dL Calcium 9.3 (8.4-10.2) mg/dL Total Bilirubin 0.4 (0.0-1.0) mg/dL AST 26 (5-37) U/L ALT 7 (0-40) U/L Alkaline Phosphatase 120 H (39-117) U/L Total Protein 7.4 (6.5-8.0) g/dL Albumin 4.2 (3.5-5.0) g/dL Urine Color Yellow Urine Appearance Clear Urine pH 5.5 (5.0-9.0) Ur Specific [place] 1.020 (1.005-1.025) Urine Protein Negative (Neg-Trace) mg/dL Urine Glucose (UA) Negative (Negative) mg/dL Urine Ketones Trace (Negative) mg/dL Urine Blood Trace H (Negative) Urine Nitrite Negative (Negative) Ur Leukocyte Esterase Negative (Negative) Urine RBC 0-2 (0-2) /HPF Urine WBC 0-5 (0-5) /HPF Ur Squamous Epith Cells 0-2 (0-2) /HPF Urine Bacteria None Seen (None Seen) Hyaline Casts 0-2 (0-2) /LPF Influenza Type A (PCR) NEGATIVE (Negative) Influenza Type B (PCR) NEGATIVE (Negative) RSV RNA Qual (PCR) NEGATIVE (Negative) SARS-CoV-2 RNA (RT-PCR) NEGATIVE (Negative) S. pyogenes GrpA VIKTORIYA Negative (Negative) Independent Interpretation I performed an independent interpretation of an: Plain X-Ray Interpretation: I independently reviewed the x-ray and agree with the radiology report Radiology Impression Discussion of test interpretation with radiology: I have reviewed the radiologist's reading. 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 Radiographs chest 2. Radiographs abdomen CLINICAL INDICATION: Wheezing. Assess stool burden. COMPARISON: Chest x-ray March 20, 2024 TECHNIQUE: 2 views of the chest and supine views of the abdomen were obtained. FINDINGS: Cardiac silhouette is normal in size. The lungs are well aerated. There is no lobar consolidation. No pleural effusion or pneumothorax. No dilated air-filled loops of small bowel to suggest an obstructive process. There is a mild to moderate stool burden throughout the majority of the colon. No acute osseous abnormality. XR/XR chest 2V IMPRESSION: 1. No acute pulmonary pathology. 2. Mild to moderate stool burden throughout the majority of the colon. External Record Review External record reviewed: Outside ED record Tests considered The following testing was considered but not selected: see above Prescription Management I considered prescription management with: Antibiotic Medications Administered Discontinued Medications Generic Name Dose Route Start Last Admin Trade Name Freq PRN Reason Stop Dose Admin Albuterol Sulfate 2 puff 09/28/24 10:45 09/28/24 11:04 Albuterol Sulfate 90 Mcg 8 Gm Inhaler INHALE 09/28/24 10:46 2 puff ONCE ONE Administration Discharge Plan Discharge Clinical Impression: Lumbar strain, Constipation, Bronchitis Patient Disposition: Home, Self-Care Instructions: Constipation (ED), Muscle Strain (ED), Acute Bronchitis (ED) Additional Instructions: Increase fluids in the diet. Increase fiber in the diet. Gentle stretching. No heavy lifting or bending. Follow-up with primary care doctor for any continued symptoms Testing for flu, COVID, RSV and strep are negative. Your blood work is reassuring. Your urine shows no signs of infection. Your x-ray shows no signs of pneumonia. Your x-ray of your abdomen does show some constipation Use the inhaler 2 puffs every 4 hours as needed for cough or wheezing Prescriptions: New polyethylene glycol 3350 [Miralax] 17 gram/dose powder 17 g PO DAILY Qty: 119 0RF docusate sodium [Colace] 100 mg capsule 100 mg PO DAILY Qty: 30 0RF prednisone 20 mg tablet 40 mg PO DAILY Qty: 10 0RF cyclobenzaprine 10 mg tablet 10 mg PO TID PRN (Reason: muscle spasm) Qty: 15 0RF No Action doxycycline hyclate 100 mg capsule 100 mg PO BID 7 Days Qty: 14 0RF amoxicillin-pot clavulanate 875-125 mg tablet 1 tab PO BID 7 Days Qty: 14 0RF prednisone 20 mg tablet 40 mg PO DAILY 5 Days Qty: 10 0RF Excedrin Migraine 250-250-65 mg tablet 1 tab PO Q6H PRN (Reason: headache) Qty: 10 0RF ondansetron 4 mg tablet,disintegrating 4 mg PO Q8H PRN (Reason: nausea and vomiting) Qty: 10 0RF Referrals: Physician,Nonstaff [Primary Care Provider] - 10 days Stand Alone Forms: Work/School Release Print Language: Divehi
--- NOTE | 2024-09-28 10:35 | PC.NURSE ---
Pt presents to ED from home, reports right sided flank/back pain since early this morning. Also reports constipation and trouble having a bowel movement. Denies falls or injury. Reports he is currently being treated for a facial infection with oral ABX. Alert and oriented, breathing even and unlabored, skin warm and dry. 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
[2024-09-28 10:47] LABS: Alanine Aminotransferase 7 U/L (0-40); Albumin Level 4.2 g/dL (3.5-5.0); Alkaline Phosphatase 120 U/L (39-117); Anion Gap 11 (12-20); Aspartate Amino Transferase 26 U/L (5-37); Bilirubin Total 0.4 mg/dL (0.0-1.0); Blood Urea Nitrogen 8 mg/dL (9-16); Calcium 9.3 mg/dL (8.4-10.2); Carbon Dioxide 23 mmol/L (22-29); Chloride 107 mmol/L (96-108); Creatinine Clr Calc Pharmacy 146.3; Estimated Glomerular Filt Rate > 60; Glucose Random 102 mg/dL (60-115); Sodium 137 mmol/L (135-145); Total Protein 7.4 g/dL (6.5-8.0)
[2024-09-28] MEDS: Albuterol Sulfate 90 MCG 8 GM INHALER 2 PUFF INHALE (11:04)
[2024-09-28 11:06] VITALS: PULSE 84; RESP 18; O2SAT 97
[2024-09-28 11:27] LABS: IDNOW Serial# 08D9AD1C; Strep A Nucleic Acid Negative (Negative)
[2024-09-28 11:51] LABS: Influenza A PCR NEGATIVE (Negative); Influenza B PCR NEGATIVE (Negative); Resp Syncy Virus RNA Qual PCR NEGATIVE (Negative); SARS COV2 PCR INHOUSE NEGATIVE (Negative)
[2024-09-28 12:05] LABS: Appearance Urine Clear; Color Urine Yellow; Glucose Urine UA Negative (Negative); Leukocyte Esterase Urine Negative (Negative); Nitrite Urine Negative (Negative); PH 5.5 (5.0-9.0); UMIC TRIGGER UACC YES; Urine Blood Trace (Negative); Urine Ketones Trace mg/dL (Negative); Urine Protein Negative (Neg-Trace)
[2024-09-28 12:11] LABS: Bacteria Urine None Seen (None Seen); Hyaline Casts Urine 0-2 /LPF (0-2); RBC Urine 0-2 /HPF (0-2); Squamous Epithelial Cell Urine 0-2 /HPF (0-2); WBC Urine 0-5 /HPF (0-5)
[2024-09-28 12:27] VITALS: BP 118/70; PULSE 68; RESP 16; TEMP 36.4; O2SAT 95
[2024-09-28 12:28] VITALS: BP 118/70; PULSE 68; RESP 16; TEMP 36.4; O2SAT 95
== END 2024-09-28 12:29 | disposition home or self-care (01) ==
PROVIDERS: Nurse Practitioner Family; Emergency Provider Emergency Medicine
DX: J40 Bronchitis, not specified as acute or chronic (principal); K59.00 Constipation, unspecified; S39.012A Strain of muscle, fascia and tendon of lower back, initial encounter; X50.9XXA Other and unspecified overexertion or strenuous movements or postures, initial encounter; Y93.89 Activity, other specified; Y92.9 Unspecified place or not applicable; Y99.9 Unspecified external cause status; Z03.818 Encounter for observation for suspected exposure to other biological agents ruled out; R05.9 Cough, unspecified
CPT/HCPCS: 0241U; 36415; 71046; 74018; 80053; 81001; 81003; 85025; 87651; 94640; 99284; 99285

== ENCOUNTER 2025-04-21 08:47 | Emergency (ER) | payer OTHER, SELFPAY ==
[2025-04-21 08:50] VITALS: BP 146/89; PULSE 84; RESP 18; TEMP 37; O2SAT 97; BMI 40.5
--- NOTE | 2025-04-21 09:45 | ED_ITS ---
HPI - Extremity Problem General Chief complaint: Extremity Injury, Upper Stated complaint: l shoulder pain Time Seen by Provider: 04/21/25 09:45 Source: patient Mode of arrival: ambulatory Limitations: no limitations History of Present Illness ED Provider: Dr. Juan Jose Newton HPI Narrative: 34-year-old male who presents emergency department for evaluation of left shoulder pain and left tingling in his and numbness in his 2nd 3rd and 4th fingers. The patient is left hand dominant. 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 He states that he also lifts 2 x 4 bundles weighing about 10-15 lb each. Patient states that about 1 week prior developed a sharp pain in his left shoulder. He states the pain has been constant. He has also noticed numbness in his 2nd, 3rd and 4th fingers of his left hand. Patient states that he is not able to work secondary to his pain in his shoulder. He does not recount any specific injury. He denied fever or chills. Related Data Previous Rx's ?Medication ?Instructions ?Recorded ondansetron 4 mg disintegrating 4 mg PO Q8H PRN nausea and 03/24/23 tablet vomiting #10 tabs amoxicillin 875 mg-potassium 1 tab PO BID 7 days #14 t abs 09/05/24 clavulanate 125 mg tablet pjlqfhr-bqjghxzktwakr-kbbgjdvd 250 1 tab PO Q6H PRN he adache #10 tabs 09/05/24 mg-250 mg-65 mg tablet (Excedrin Migraine) doxycycline hyclate 100 mg capsule 100 mg PO BID 7 day s #14 caps 09/05/24 prednisone 20 mg tablet 40 mg (2 x 20 mg) PO DAILY 5 days 09/05/24 #10 tabs cyclobenzaprine 10 mg tablet 10 mg PO TID PRN muscle s pasm #15 09/28/24 tabs docusate sodium 100 mg capsule 100 mg PO DAILY #30 cap s 09/28/24 (Colace) polyethylene glycol 3350 17 17 g PO DAILY #119 grams 1 11/28/23 gram/dose oral powder (Miralax) prednisone 20 mg tablet 40 mg (2 x 20 mg) PO DAILY # 10 tabs 09/28/24 cyclobenzaprine 10 mg tablet 10 mg PO TID PRN muscle p ain or 04/21/25 spasm #20 tabs Allergies Allergy/AdvReac Type Severity Reaction Status Date / Time No Known Allergies Allergy Verified 04/21/25 08:51 Review of Systems Review of Systems: Yes all other systems are reviewed and are negative [facility] Social History Social History Smoked in Last 30 Days: No Use of substances other than those prescribed or required for medical reasons: No Substance Use Type: Marijuana Advance Directives: No Advance Directives Information Provided: Yes Physical Exam Vital Signs: Vital Signs: Last Vital Signs Temp 98.6 F 04/21/25 11:26 Pulse 78 04/21/25 11:26 Resp 18 04/21/25 11:26 BP 139/78 04/21/25 11:26 Pulse Ox 97 04/21/25 11:26 O2 Del Method Room Air 04/21/25 11:26 BMI result Body Mass Index 40.5 Vital signs revealed an elevated blood pressure of 139/78 otherwise unremarkable Exam: General: Awake, alert in no distress Head: Normocephalic, atraumatic EENT: PERRL, Lids normal, sclera normal, conjunctiva normal, nose normal , ears normal, throat without erythema or exudates Neck: Supple, no adenopathy Lung: breath sounds symmetric, no wheezing, rales or rhonchi Chest: symmetric movement, nontender Heart: regular rate and rhythm, normal S1, S2 no murmurs or rubs Abdomen: soft, non-tender, nondistended, normal bowel sounds Back: no vertebral tenderness, no CVAT Extremities: Patient has tenderness palpation over his left deltoid muscle as well as in his left triceps muscles, he has good passive range of motion of his left shoulder but with active range of motion of the shoulder has pain. He also has pain with flexing his bicep and tricep. Patient had no tingling this in his fingers that the time my evaluation, he did have a positive Tinel sign with bend Hernández's left wrist. Neuro: Awake, alert, oriented, normal speech, cranial nerves intact, moves all extremities symmetrically Psych: Pleasant, cooperative Medications Administered Discontinued Medications Generic Name Dose Route Start Last Admin Trade Name Freq PRN Reason Stop Dose Admin Ibuprofen 400 mg 04/21/25 10:08 04/21/25 10:19 Ibuprofen 400 Mg Tablet PO 04/21/25 10:09 400 mg ONCE STA Administration Medical Decision Making Medical Decision Making [facility] Narrative: 34-year-old male who presents emergency department for evaluation of left shoulder pain and left tingling in his and numbness in his 2nd 3rd and 4th fingers. The patient is left hand dominant. 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 He states that he also lifts 2 x 4 bundles weighing about 10-15 lb each. Patient states that about 1 week prior developed a sharp pain in his left shoulder. He states the pain has been constant. He has also noticed numbness in his 2nd, 3rd and 4th fingers of his left hand. Patient states that he is not able to work secondary to his pain in his shoulder. He does not recount any specific injury. He denied fever or chills. Vital signs revealed an elevated blood pressure. Exam did reveal tenderness palpation in his left deltoid muscle as well as his left trapezius muscle. Patient also had positive Tinel sign with bending his left wrist. Differential diagnosis: ?Includes but is not limited to left shoulder sprain, left triceps sprain, left carpal tunnel syndrome, repetitive motion syndrome Course: Patient's findings are consistent with repetitive motion injury with a strain to his left shoulder and left triceps as well as carpal tunnel syndrome of his left wrist. Patient was placed in a left wrist splint. He was advised to take ibuprofen and Tylenol for pain. He was also given a prescription for Flexeril to take at night for muscle spasm. The patient was given 1 day off from work and was advised to return to work after 1 day of rest with no use of his left arm but he can not lift 5-10 lb with his right arm. Patient was advised to follow up with either our occupational health clinic or his employers occupational health clinic for re-evaluation and further management of his work- related injuries. Admission/Observation Consideration of admission/observation: Escalation of care including admission/observation considered (No) Prescription Management I considered prescription management with: Other Anti spasmodic: Flexeril Discharge Plan Discharge Clinical Impression: Repetitive motion injury, Strain of left triceps, Left shoulder strain, Carpal tunnel syndrome of left wrist, Work related injury Patient Disposition: Home, Self-Care Instructions: Muscle Strain (DC), Carpal Tunnel Syndrome (DC) Additional Instructions: Your left shoulder and triceps pain are consistent with muscle strain secondary to repetitive work/use of the 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 The tingling this in the fingers of your 2nd 3rd and 4th fingers of your left hand are also consistent with repetitive injury of your wrist from using the forklift steering wheel causing carpal tunnel syndrome. Wear the wrist splint until your re-evaluated by the occupational health can, I want you to wear this is work as well. Take ibuprofen 200 mg pills, 2 pills every 6 hours as needed for pain or fever. Take Tylenol (acetaminophen) 500 mg pills, 2 pills every 6 hours as needed for pain or fever. Take Flexeril (cyclobenzaprine) 10 mg pills, 1 pill every 6-8 hours as needed for pain or spasm of your shoulder and triceps muscles. ?This medication will make you sleepy. ?Do not drive or work while taking this medication. You will need to follow-up with an occupational health clinic. Talk to your employer to see if you can use our occupational health clinic or you may need to follow-up with your employer occupational health clinic. Call them today to be evaluation 1 week. You can return to work tomorrow with no use of your left hand/arm and no more than lifting 10 lb with the right hand/arm Please return to the emergency department if your symptoms get worse or if you develop any symptoms that are concerning to you. Prescriptions: New cyclobenzaprine 10 mg tablet 10 mg PO TID PRN (Reason: muscle pain or spasm) Qty: 20 0RF No Action doxycycline hyclate 100 mg capsule 100 mg PO BID 7 Days Qty: 14 0RF amoxicillin-pot clavulanate 875-125 mg tablet 1 tab PO BID 7 Days Qty: 14 0RF prednisone 20 mg tablet 40 mg PO DAILY 5 Days Qty: 10 0RF Excedrin Migraine 250-250-65 mg tablet 1 tab PO Q6H PRN (Reason: headache) Qty: 10 0RF ondansetron 4 mg tablet,disintegrating 4 mg PO Q8H PRN (Reason: nausea and vomiting) Qty: 10 0RF polyethylene glycol 3350 [Miralax] 17 gram/dose powder 17 g PO DAILY Qty: 119 0RF docusate sodium [Colace] 100 mg capsule 100 mg PO DAILY Qty: 30 0RF prednisone 20 mg tablet 40 mg PO DAILY Qty: 10 0RF cyclobenzaprine 10 mg tablet 10 mg PO TID PRN (Reason: muscle spasm) Qty: 15 0RF Referrals: [facility] [Provider Group] - 1 week Referral Note: Repetitive motion injury to left deltoid, left tricep with numbness 2nd 3rd 4th fingers consistent with carpal tunnel syndrome Stand Alone Forms: Work/School Release Interventions: ED Discharge Assessment Last Done: 04/21/25 11:26 Discharge Date/Time: 04/21/25 11:27 Print Language: Japanese
[2025-04-21] MEDS: Ibuprofen 400 MG TABLET PO (10:19)
--- OUTSIDE RECORDS SUMMARY | 2025-04-21 10:20 | XMS_ITS | Clinical Summary ---
Author Organization [facility] Address [address] [place] [address] Care Team Providers Care Maintenance Mgr Name Role Phone Winnie Brandon MD Primary Care Provider [phone] Source Comments PLEASE NOTE, if this patient is a minor, it may be UNLAWFUL to discuss sensitive information that is contained in these records (such as FAMILY PLANNING, MENTAL HEALTH or SUBSTANCE ABUSE) with the minor patient's parent or other person without the patient's specific authorization.[facility] Allergies No known active allergies Medications polyvinyl alcohol (LIQUIFILM TEARS) 1.4 % ophthalmic solutionIndicat ions:Dry eye syndrome, bilateral Place 1 Drop into both eyes 4 (four) times daily 15 mL 11 7 Active white petrolatum ointmentIndicat ions:Pruritus Apply topically as needed for dry skin 368 g 5 7 Active fluticasone (FLONASE) 50 mcg/actuation nasal spray Place 1 Nicolaus in both nostrils once daily 16 g 1 8 Active nicotine, polacrilex, (NICORETTE) 2 mg gum Take 1 Each by mouth as needed for smoking cessation 100 Each 3 9 Active amoxicillin (AMOXIL) 500 mg capsule Take 1 Cap by mouth 3 (three) times daily 30 Cap 0 Active amoxicillin (AMOXIL) 500 mg capsule Take 1 Cap by mouth 3 (three) times daily 30 Cap 0 Active ibuprofen 800 mg tablet Take 1 Tablet by mouth 3 (three) times daily as needed for pain 30 Tablet 0 Active lidocaine HCL (XYLOCAINE) 2 % solutionIndicat ions:Aphthous stomatitis Take 5 mL by mouth every 6 (six) hours as needed for pain 100 mL 1 1 Active acetaminophen (TYLENOL) 500 mg tabletIndicatio ns:Aphthous stomatitis Take 1 Tablet by mouth every 6 (six) hours as needed for pain 90 Tablet 1 1 Active traMADoL (ULTRAM) 50 mg tabletIndicatio ns:Aphthous stomatitis Take 1 Tablet by mouth 4 (four) times daily as needed for pain 7 Tablet 1 Active dextran 70-hypromellose (ARTIFICIAL TEARS,[id number] PRO,) 0.1-0.3 % dropIndications :Dry eyes Place 1 Drop into both eyes 4 (four) times daily 15 mL 11 2 Active Active Problems Problem Noted Date Diagnosed Date Skin irritation 12/24/2020 Overview (12/24/2020): Pt reports 2wk erythematous patch on right chest wall over the pec muscle + welt on R arm. Welt responsive to cortisone cream. Welt likely r/t skin irritation of some sort (scratch) given that it improved with OTC cortisone cream. Non blanching non watm erythematous patch likely spider/ insect bite given that it was painful initially but pain has since subsided. - CTM, will f/u PRN if skin issues worsen. Injury of glenoid labrum 09/26/2019 Rotator cuff syndrome of left shoulder 9 Assessment & Plan (07/22/2019 6:39 PM EDT): After injury at work 07/18/19 Evaluated in [facility] 07/19/19 --> Re-eval 07/22/19 Some improvement with home exercises, NSAID, however pain and limited ROM persist concern for risk of re-injury at work Plan: - PT referral - PCP follow up next week for re-assessment, hoping for return to work with restrictions but discussed with patietn that shoulder injuries can take time to heal Other obesity due to excess calories 07/17/2018 Encounter for general adult medical examination with abnormal findings 11/28/2016 Overview (12/24/2020): General: BP Readings from Last 1 Encounters: 12/24/20 138/67 Counseling Diet: pt encouraged to contiue optimizing diet (small portion sizes, veggies) Exercise: pt encouraged to continue with exercises, stressed the importance of doing so for healthy weight maintenance Immunizations: none today Labs a1c, lipid panel Sex: STI testing today, pt w/ 1 partner (spouse) reports that she's contraception- unclear of which Assessment & Plan (11/28/2016 12:50 AM EST): -exam as noted -immunizations: declined -encouraged to exercise daily and to eat healthy ?? -to lab for lipids, a1c, bmp -STI testing today including HIV -RTC 1 year for PE or prn Decreased visual acuity 11/28/2016 Chest pain 11/28/2016 Overview (12/24/2020): Pt reports a longstanding h/o CP brought on by stress and arguments with . Denies sxs c/w typical, anginal CP (radiates down the LUE, WHITNEY, exertional). No family h/o early CV dz or . Pt reported prior history of almost [place] , upon review of ED visit, no dx of [place] or anginal CP made. - Pt to f/u PRN if quality of CP worsens - Given that pt thinks that this may be r/t weight, counseling on diet and exercise given per below Assessment & Plan (11/28/2016 12:43 AM EST): Exam wnl today Given age and hx - less likely cardiac, likley MSK. Recommend ibuprofen, stretching Follow up 1 month Sooner with any worsening symptoms Immunizations Immunization Administration Dates Next Due INFLUENZA, SEASONAL, INJECTABLE 09/12/2019,08/17,07/24/2017 INFLUENZA, SEASONAL, INJECTA BLE, PRESERVATIVE FREE 11/17/2020 Moderna COVID-19 Vaccine, re d cap blue label, 12+ Primary Series 12/13/2021 TDAP 07/24/2017 Family History Medical History Relation Name Comments Cancer Paternal Grandfather prostat e cancer Heart Problems Paternal Grandmother Relation Name Status Comments Paternal Grandfather Paternal Grandmother Social History Tobacco Use Types Packs/Day Years Used Date Smoking Tobacco: Some Days Cigars Smokeless Tobacco: Never Alcohol Use Standard Drinks/Week Comments No 0 (1 standard drink = 0.6 oz pur e alcohol) Social Connections Answer Date Recorded Connectedness 0 07/13/2024 Financial Resource Strain Answer Date R ecorded Financial Resource Strain 0 2021 Stress Answer Date Recorded Stress 0 06/30/2019 Physical Activity Answer Date Recorded Physical Activity 0 06/30/2019 Food Insecurity Answer Date Recorded Food 0 12/13/2021 Transportation Needs Answer Date Record ed Transportation 0 12/13/2021 Housing Stability Answer Date Recorded Housing 0 12/13/2021 Safety and Environment Answer Date Osiel rded Safety 0 06/30/2019 Utilities Answer Date Recorded Utilities 0 12/13/2021 Employment Answer Date Recorded Stress 0 12/13/2021 Sex and Gender Information Value Date Recorded Sex Assigned at Male 11/11/2019 4:57 AM PST Legal Sex Male 7:21 AM PST Gender Identity Male 07/19/2019 10:28 AM PDT Sexual Orientation Straight 07/19/2019 10 :28 AM PDT Last Filed Vital Signs Vital Sign Reading Time Taken Comments Blood Pressure 144/89 12/13/2021 9:09 AM EST Pulse 78 12/13/2021 9:09 AM EST Temperature 36.6 ??C (97.8 ??F) 11/17/2020 1 0:29 AM EST Respiratory Rate - - Oxygen Saturation 97% 12/13/2021 9:09 AM EST Inhaled Oxygen Concentration - - Weight 139.8 kg (308 lb 3.2 oz) 12/13/2021 9:09 AM EST Height 174.7 cm (5' 8.78 ) 12/13/2021 9:09 AM ES T Body Mass Index 45.8 12/13/2021 9:09 AM EST Plan of Treatment Health Maintenance Due Date Last Done Comments Anxiety Screening 1988 Tobacco Cessation Counseling (#1) 1988 Tobacco Screening 1988 Imm-Hepatitis B (1 of 3 - 19 + 3-dose series) 2007 Annual Wellness (Adult): Ind icated (All Coverage) 12/24/2021 12/24/2020, 11/17/2016 Diabetes Screening 12/24/2021 12/24/2020, 1 , 07/24/2017, Additional history exists Hypertension Screening (#1) 12/13/2022 [id number] ( season) 2024 12/13/2021, 03/29/2021, 03/01/2021 Alcohol and Drug Screen 11/06/2024 12/13/19 22, 11/11/2019, 03/13/2019, Additional history exists Depression Annual Screen 11/06/2024 Imm-Influenza (Season Ended) 07/07/202510/2021, 09/12/2019, 08/17/2018, Additional history exists Imm-DTaP/Tdap/Td (3 - Td or Tdap) 01/09/2028 018, 07/24/2017 HIV Screening Completed 12/24/2020, 11/06, 11/17/2016 Hepatitis C Screening Completed 12/24/2020 Procedures Procedure Name Priority Date/Time Associated Diagnosis Comments HIV 4TH GEN Routine 12/24/2020 3:41 PM EST Encounter for general adult medical examination with abnormal findings HEP C AB Routine 12/24/2020 3:41 PM EST Encounter for general adult medical examination with abnormal findings HEMOGLOBIN GLYCOSYLATED A1C Routine 12/24/2020 3:41 PM EST Encounter for general adult medical examination with abnormal findings Morbid obesity ([facility]) Body mass index 40.0-44.9, adult ([facility]) from Last 3 Months or Most Recently Relevant to Health Maintenance Results * HIV, 4th Generation (12/24/2020 3:41 PM EST) CHIV Nonreactive Nonreactive [facility] Serum Blood / Unknown 12/24/2020 3 :41 PM EST 12/24/2020 3:41 PM EST Narrative [facility] - 12/25/2020 7:14 PM EST patient is not fasting. us Anna Davila MD LAB - BLOOD DRAW Final Resul t Performing Organization Address [facility] Co de Phone Number [facility] CLIA# [id number] [address] [place] [address], * Hepatitis C Antibody (12/24/2020 3:41 PM EST) HEPATITIS C AB Nonreactive Nonreactive [facility] Serum Blood / Unknown 12/24/2020 3 :41 PM EST 12/24/2020 3:41 PM EST Narrative [facility] - 12/25/2020 7:14 PM EST patient is not fasting. Anna Davila MD LAB - BLOOD DRAW Final Resul t Performing Organization Address [facility] de Phone Number [facility] CLIA# [id number] [address] [place] [id number], [place] [phone] * (ABNORMAL) A1C (12/24/2020 3:41 PM EST) HB1C 5.8(H) 4.8 - 5.6 % [facility] Comment: <5.7%: ??Normal Range 5.7-6.4%: ??Increased risk for Diabetes >6.5%: Diabetic Range Lowering Hemoglobin A1C to below or around 7% has been shown to reduce microvascular and neuropathic complications of Type 1 and Type 2 Diabetes. ??Therefore, for microvascular prevention, the Hemoglobin A1C goal for non- adults in general is less than 7% (2010 ADA) MEAN GLUC 120 mg/dL [facility] Whole blood specimen (specimen) Blood / Unknown 12/24/2020 3:41 PM EST 12/24/2020 3:41 PM EST Narrative [facility] - 12/24/2020 4:24 PM EST patient is not fasting. us Anna Davila MD LAB - BLOOD DRAW Final Resul t Performing Organization Address [facility] Co de Phone Number [facility] CLIA# [id number] [address] [place] [id number], from Last 3 Months or Most Recently Relevant to Health Maintenance [place] NET [facility] SAFETY NET DENTAL [employer] Care Teams Maintenance Mgr Relationship Specialty Start Date End Date Winnie Brandon MD [address] [place] [address] PCP - General Family Medicine, Physician 03/12/21
[2025-04-21 11:26] VITALS: BP 139/78; PULSE 78; RESP 18; TEMP 37; O2SAT 97
== END 2025-04-21 11:27 | disposition home or self-care (01) ==
PROVIDERS: Emergency Provider Emergency Medicine Emergency Medical Services
DX: S46.312A Strain of muscle, fascia and tendon of triceps, left arm, initial encounter (principal); S46.912A Strain of unspecified muscle, fascia and tendon at shoulder and upper arm level, left arm, initial encounter; X50.3XXA Overexertion from repetitive movements, initial encounter; G56.02 Carpal tunnel syndrome, left upper limb; Y93.89 Activity, other specified; Y92.59 Other trade areas as the place of occurrence of the external cause; Y99.0 Civilian activity done for income or pay
CPT/HCPCS: 99283; 99284

== ENCOUNTER 2025-05-07 09:31 | Emergency (ER) | payer OTHER, SELFPAY ==
--- NOTE | 2025-05-07 | ECG_ITS ---
Test Reason : CHEST PAIN Blood Pressure : */* mmHG Vent. Rate : 98 BPM Atrial Rate : 98 BPM P-R Int : 138 ms QRS Dur : 80 ms QT Int : 342 ms P-R-T Axes : 44 3 18 degrees QTcB Int : 436 ms Normal sinus rhythm Normal ECG When compared with ECG of 21-Dec-2023 08:04, No significant change was found Referred By: Generic ED Physician Electronically Signed By: NEY ABARCA MD
--- NOTE | ~2025-05-07 | XR_ITS ---
CLINICAL HISTORY: chest pain 2 view chest x-ray. Comparison: None Findings: The lungs are adequately expanded. No focal consolidation. No effusion or pneumothorax. Cardiac and mediastinal contours are within normal limits. No acute osseous abnormality. Impression: No acute process. This document has been electronically signed by: Vern Argueta MD on 05/07/2025 10:37:44
--- NOTE | 2025-05-07 09:45 | ED_ITS ---
HPI - General Adult General Chief complaint: Chest Pain Stated complaint: Chest pain, finger numbness Time Seen by Provider: 05/07/25 09:45 Source: patient Mode of arrival: ambulatory Limitations: no limitations History of Present Illness ED Provider: Annette Aguillon PA-C HPI narrative: Patient is a 34 year old male presenting to ER on 05/07 with chief complaint of L sided chest pain and palpitations, neck pain that radiates down L arm with associated tingling/numbness of thumb, index, and middle fingers of L hand. He was recently seen in this ER 04/17 and was diagnosed with L carpal tunnel syndrome, was told he had concurrent tendonitis and to follow up with PCP shortly after. He has been taking ibuprofen regularly with no relief of pain. He states he has not slept for days, as lying down exacerbates his pain. Since yesterday 05/06 he has noticed L sided anterior chest pain and palpitations when lying down. He also reports frequency of bowel movements have increased since 05/04 to 3-4x daily (normal is 1-2x daily). He denies diarrhea or blood in his stool. He denies fevers or chills. Onset (ago): day(s) (1 day L sided chest pain/palpitations, carpal tunnel for weeks) Location: neck and chest Radiation: extremity (Pain/tingling/numbness in L arm to 1st 3 digits of L hand) Relieving factors: none Exacerbating factors: none Associated symptoms: other (Insomnia) Related Data Previous Rx's ?Medication ?Instructions ?Recorded ondansetron 4 mg disintegrating 4 mg PO Q8H PRN nausea and 03/24/23 tablet vomiting #10 tabs amoxicillin 875 mg-potassium 1 tab PO BID 7 days #14 t abs 09/05/24 clavulanate 125 mg tablet valjxzc-skawlmzjfxzcr-sqrcvtvv 250 1 tab PO Q6H PRN he adache #10 tabs 09/05/24 mg-250 mg-65 mg tablet (Excedrin Migraine) doxycycline hyclate 100 mg capsule 100 mg PO BID 7 day s #14 caps 09/05/24 prednisone 20 mg tablet 40 mg (2 x 20 mg) PO DAILY 5 days 09/05/24 #10 tabs cyclobenzaprine 10 mg tablet 10 mg PO TID PRN muscle s pasm #15 09/28/24 tabs docusate sodium 100 mg capsule 100 mg PO DAILY #30 cap s 09/28/24 (Colace) polyethylene glycol 3350 17 17 g PO DAILY #119 grams 1 11/28/23 gram/dose oral powder (Miralax) prednisone 20 mg tablet 40 mg (2 x 20 mg) PO DAILY # 10 tabs 09/28/24 cyclobenzaprine 10 mg tablet 10 mg PO TID PRN muscle p ain or 04/21/25 spasm #20 tabs Allergies Allergy/AdvReac Type Severity Reaction Status Date / Time No Known Allergies Allergy Verified 05/07/25 09:57 Review of Systems 2 Constitutional: Constitutional: Reports no additional constitutional complaints, Denies chills, Denies fever(s) and Denies night sweats Eyes: Eyes: Reports no additional eye complaints, Denies blurry vision, Denies change in vision, Denies diplopia, Denies eye discharge, Denies loss of vision and Denies eye pain ENT: Denies dizziness Cardiovascular: Cardiovascular: Reports no additional cardiovascular complaints, Reports chest pain, Denies lightheadedness, Denies Loss of Consciousness and Denies dyspnea Respiratory: Respiratory: Reports no additional respiratory complaints and Denies dyspnea Gastrointestinal: Gastrointestinal: Reports no additional gastrointestinal complaints, Denies abdominal pain, Denies melena, Denies hematochezia, Reports change in bowel habits and Denies change in stool character Genitourinary: Genitourinary: Reports no additional male genitourinary complaints, Denies hematuria, Denies oliguria, Denies difficulty urinating, Denies dysuria, Denies urinary frequency, Denies urinary hesitancy, Denies urinary incontinence and Denies urinary urgency Musculoskeletal: Musculoskeletal: Reports no additional musculoskeletal complaints and Reports as per HPI Neurologic: Denies dizziness and Denies loss of vision Psychiatric: Psychiatric: Reports no additional psychiatric complaints Endocrine: Endocrine: Reports no additional endocrine complaints Hematologic/Lymphatic: Hematologic/Lymphatic: Reports no additional hematologic/lymphatic complaints Allergic/Immunologic: Allergic/Immunologic: Reports no additional allergic/immunologic complaints PMFSH Past Medical History Attestation statement: The following information was validated with the patient. (all information validated with the patient's ) Source: old records reviewed, obtained from family (patient's provided additional history and confirmed the history provided by the patient.) and nursing notes reviewed Social History Social History Smoked in Last 30 Days: No Use of substances other than those prescribed or required for medical reasons: Yes Substance Use Type: Marijuana Advance Directives: No Advance Directives Information Provided: Yes Physical Exam ED Vital Signs: Vital Signs - 24 hr 05/07/25 09:55 05/07/25 12:01 05/07/25 12:54 Temperature 98.1 F 97.5 F 97.5 F Pulse Rate 93 73 73 Respiratory Rate 17 17 17 Blood Pressure 169/108 H 161/105 H 161/105 H Pulse Oximetry 97 97 97 Oxygen Delivery Method Room Air Room Air Room Air BMI result Body Mass Index 41.0 Const General: cooperative, no acute distress, alert and awake Nutritional Appearance: well nourished Orientation/consciousness: patient oriented x3 HENMT Head: Yes normal to inspection and Yes atraumatic Ears: hearing grossly normal bilaterally and external ears normal General nose exam: Normal external nose present, no nasal discharge noted and no epistaxis Face and sinus: Yes normal facial exam, No abrasion and No laceration Mouth: Normal oral and palatal mucosa present, no drooling and no muffled voice Eyes General: appearance normal, both eyes and all related structures Periorbital: periorbital findings normal Eyelids: Yes eyelids normal Conjunctivae: conjunctivae normal Pupils: Equal, round and reactive pupils present EOM: EOMs intact bilaterally Neck Neck: Yes normal visual inspection, Yes full ROM, Yes no lymphadenopathy and Yes tender (Tender to palpation on L lateral aspect of neck, radiates down L arm/hand) Chest Chest palpation & inspection: normal inspection of the chest (L anterior chest nontender to palpation) Resp Effort & Inspection: normal respiratory effort and able to speak in complete sentences Neuro General: patient oriented x3, moves all extremities and CN's II-XI intact bilaterally Cranial nerves: Yes Equal, round and reactive pupils present Cognition (Neuro): normal cognition Extrem General: Yes normal to inspection, Yes full ROM and Yes capillary refill normal Psych Appearance: grossly normal Mental Status: mental status grossly normal Affect: normal affect Attitude: cooperative Thought process: Normal thought process present Thought content: Normal thought content present Insight: Good insight present (Psych) Medications Administered Discontinued Medications Generic Name Dose Route Start Last Admin Trade Name Freq PRN Reason Stop Dose Admin Morphine Sulfate 4 mg 05/07/25 11:14 05/07/25 11:25 Morphine Sulfate 4 Mg/Ml Cartridge IVPUSH 05/07/25 11:15 4 mg ONCE ONE Administration Protocol Ondansetron HCl 4 mg 05/07/25 11:14 05/07/25 11:25 Ondansetron Hcl 4 Mg/2 Ml Vial IVPUSH 05/07/25 11:15 4 mg ONCE ONE Administration Pantoprazole Sodium 40 mg 05/07/25 12:20 05/07/25 12:54 Pantoprazole Sodium 40 Mg/10 Ml Vial IVPUSH 05/07/25 12:21 40 mg ONCE ONE Administration Medical Decision Making Medical Decision Making [facility] Narrative: Patient is a 34 year old assigned male at with a history of left carpal tunnel / cervical radiculopathy presenting to the emergency department today with left sided chest pain, palpitations, and continued symptoms from his cervical radiculopathy and carpal tunnel. Patient's physical exam was as noted in the physical exam portion of this note. Patient had an elevated blood pressure reading but no evidence of end organ damage and this is likely secondary to his pain from his cervical radiculopathy / tendonitis / carpal tunnel. I recommended the patient maintain a blood pressure diary to share with his PCP. Patient's blood work was unremarkable including 2 negative troponins. Patient's EKG was unremarkable. Patient's chest x-ray showed no acute process. I explained my physical exam findings as well as all test results to the patient and the patient's . I answered all questions asked by the patient and the patient's . I stressed the importance of the patient taking his medication as directed (either prescribed or as the over the counter packaging recommends). I stressed the importance of the patient following up with his primary care provider. I stressed the importance of the patient returning to the emergency department immediately if his symptoms were to worsen or if he were to develop any dizziness, shortness of breath, difficulty breathing, chest pain, blurry vision, loss of vision, nausea, vomiting, abdominal pain, fever, chills, back pain, or any other complaints. Patient and the patient's verbalized agreement and understanding with this treatment plan and discharge. Differential Diagnosis Differential Diagnoses: The differential diagnosis associated with the presentation includes Atypical chest pain Cervical radiculopathy Admission/Observation Consideration of admission/observation: Escalation of care including admission/observation considered Patient would have been admitted to the hospital had his work up had any findings where hospital admission was appropriate and his clinical presentation warranted hospital admission. Lab Data [facility] Lab Attestation statement: I reviewed the patient's lab results. My interpretation of these results are in the [facility] Rationale portion of this note. 05/07/25 10:28 05/07/25 10:28 Labs: Lab Results 05/07/25 05/07/25 Range/Units 10:28 11:42 WBC 8.7 (4.8-10.8) X10*3/uL RBC 4.77 (4.60-5.80) X10*6/uL Hgb 15.4 (14.0-18.0) g/dl Hct 44.9 (42.0-52.0) % MCV 94.1 (80.0-98.0) fL MCH 32.3 (27.0-33.0) pg MCHC 34.3 (31.0-36.0) g/dl RDW 13.4 (11.0-16.0) % Plt Count 201 (160-400) X10*3/uL MPV 10.5 (9.4-12.4) fL Immature Gran % (Auto) 0.5 H (0.0-0.4) % Neut % (Auto) 59.2 (45-73) % Lymph % (Auto) 27.7 (20-40) % [place] % (Auto) 9.0 (2-11) % Eos % (Auto) 3.1 (0-4) % Baso % (Auto) 0.5 (0-2) % Lymph # (Auto) 2.4 (1.2-4.9) X10*3/uL [place] # (Auto) 0.8 (0.1-1.2) X10*3/uL Eos # (Auto) 0.3 (0.0-0.4) X10*3/uL Baso # (Auto) 0.0 (0.0-0.2) X10*3/uL Abs Immat Gran (auto) 0.04 H (0.00-0.03) X10*3/uL Absolute Neuts (auto) 5.2 (2.0-8.3) x10*3/uL Absolute Nucleated RBC 0.000 (0.0-0.012) X10*3/uL Nucleated RBC % (auto) 0.0 (0.0-0.2) /100WBC APTT 31.7 (26.0-36.8) SEC Sodium 139 (135-145) mmol/L Potassium 4.1 (3.3-5.1) mmol/L Chloride 105 (96-108) mmol/L Carbon Dioxide 26 (22-29) mmol/L Anion Gap 12 (12-20) BUN 8 L (9-16) mg/dL Creatinine 0.81 (0.5-1.4) mg/dL Estim Creat Clear Calc 175.6 Estimated GFR > 60 Random Glucose 95 (60-115) mg/dL Calcium 9.3 (8.4-10.2) mg/dL Magnesium 1.9 (1.6-2.6) mg/dL Total Bilirubin 0.4 (0.0-1.0) mg/dL AST 46 H (5-37) U/L ALT 34 (0-40) U/L Alkaline Phosphatase 85 (39-117) U/L Troponin I High Sens < 2.7 < 2.7 (<3.5-35.0) ng/L B-Natriuretic Peptide 16 (<100) pg/mL Total Protein 7.7 (6.5-8.0) g/dL Albumin 4.6 (3.5-5.0) g/dL Independent Interpretation I performed an independent interpretation of an: EKG and Plain X-Ray Interpretation: My interpretation is in agreement with the radiologist's impression of this imaging study. L CLINICAL HISTORY: chest pain 2 view chest x-ray. Comparison: None Findings: The lungs are adequately expanded. No focal consolidation. No effusion or pneumothorax. Cardiac and mediastinal contours are within normal limits. No acute osseous abnormality. Impression: No acute process. This document has been electronically signed by: Vern Argueta MD on 05/07/2025 10:37:44 Dictated By: Vern Argueta MD Signed By: Electronically signed by Vern Argueta MD 05/07/25 1039 I independently interpreted this EKG and am in agreement with the below findings: Vent. Rate: 98 BPM Atrial Rate: 98 BPM P-R Int: 138 ms QRS Dur: 80 ms QT Int: 342 ms P-R-T Axes: 44 3 18 degrees QTcB Int: 436 ms Normal sinus rhythm Normal ECG When compared with ECG of 21-Dec-2023 08:04, No significant change was found DD/ 0938 Radiology Impression Discussion of test interpretation with radiology: I have reviewed the radiologist's reading. Independent Historian Clinical information obtained from an independent historian. History obtained from or confirmed by: Spouse (Patient's provided additional history and confirmed the history provided by the patient. ) Discharge Plan Discharge Clinical Impression: Atypical chest pain, Elevated blood pressure reading Patient Disposition: Home, Self-Care Instructions: Chest Pain (ED) Additional Instructions: Your work up today was reassuring that there is no emergent process for your symptoms. Your blood pressure was elevated while in the department - it is crucial you follow up with your primary care about this. Please be mindful that ibuprofen and other NSAID medications can cause GI upset and that may be part of what your experiencing. Follow up with a primary care provider. Return to the emergency department immediately if your symptoms worsen or if you develop any numbness, tingling, dizziness, shortness of breath, difficulty breathing, chest pain, blurry vision, loss of vision, nausea, vomiting, abdominal pain, fever, chills, back pain, or any other complaints. L If you do not have a primary care provider - call any of the below numbers to establish and follow up with a primary care provider. [facility] Primary Care ([place]) [phone] [place] [address], [address] [facility] Primary Care ([address] [place]) [phone] [place] [address], [address] [facility] [place], [address] [facility] Primary Care ([address] [place]) [phone] [place] [address], [address] [facility] [place], [address] [facility] Primary Care ([place]) [phone] [place] [address] [address] [facility], [address] [facility] Family Medicine [phone] [place] [address], [address] Please see the information below about our Patient Portal. If you are not yet enrolled in the [facility] Patient Portal, you will receive an enrollment email invitation following your visit to any [facility] setting. You may also self-enroll in the Patient Portal by visiting our website: [email or web address] The following information is required to access the Patient Portal: - Your [facility] Medical Record Number - Your personal home email address (must match what is in your electronic medical record, Registration staff can assist with this) - Name - Date of Capabilities of the Patient Portal: - Message some providers - View upcoming appointments - Access your health summary, medical history, and visit history - View current conditions and allergies - View procedure and lab results - View your medications, including guidelines, side effects, and precautions - Complete pre-appointment questionnaires requested by your provider - Ready summary reports of your office visits and procedures To access the Patient Portal Mobile [employer], follow these directions: - Search [email or web address] in the [employer] Store or [employer] Store - Download the Craig - Search for [facility] - Enter your login/password Prescriptions: No Action doxycycline hyclate 100 mg capsule 100 mg PO BID 7 Days Qty: 14 0RF amoxicillin-pot clavulanate 875-125 mg tablet 1 tab PO BID 7 Days Qty: 14 0RF prednisone 20 mg tablet 40 mg PO DAILY 5 Days Qty: 10 0RF Excedrin Migraine 250-250-65 mg tablet 1 tab PO Q6H PRN (Reason: headache) Qty: 10 0RF cyclobenzaprine 10 mg tablet 10 mg PO TID PRN (Reason: muscle pain or spasm) Qty: 20 0RF ondansetron 4 mg tablet,disintegrating 4 mg PO Q8H PRN (Reason: nausea and vomiting) Qty: 10 0RF polyethylene glycol 3350 [Miralax] 17 gram/dose powder 17 g PO DAILY Qty: 119 0RF docusate sodium [Colace] 100 mg capsule 100 mg PO DAILY Qty: 30 0RF prednisone 20 mg tablet 40 mg PO DAILY Qty: 10 0RF cyclobenzaprine 10 mg tablet 10 mg PO TID PRN (Reason: muscle spasm) Qty: 15 0RF Stand Alone Forms: Work/School Release Interventions: ED Discharge Assessment Last Done: 05/07/25 12:54 Discharge Date/Time: 05/07/25 13:00 Print Language: Peruvian
[2025-05-07 09:55] VITALS: BP 169/108; PULSE 93; RESP 17; TEMP 36.7; O2SAT 97; BMI 41.0
[2025-05-07 10:32] LABS: MANUAL DIFF FLAG NO
[2025-05-07 10:34] LABS: Hematocrit 44.9 % (42.0-52.0); Hemoglobin 15.4 g/dl (14.0-18.0); Imm Gran Abs Auto 0.04 X10*3/uL (0.00-0.03); Imm Gran Pct Auto 0.5 % (0.0-0.4); Lymphocytes Absolute Auto 2.4 X10*3/uL (1.2-4.9); Mean Corpuscular HGB Conc 34.3 g/dl (31.0-36.0); Mean Corpuscular Hemoglobin 32.3 pg (27.0-33.0); Mean Corpuscular Volume 94.1 fL (80.0-98.0); NRBC Abs Auto 0.000 X10*3/uL (0.0-0.012); NRBC Pct Auto 0.0 /100WBC (0.0-0.2); Platelet Count 201 X10*3/uL (160-400); Red Blood Count 4.77 X10*6/uL (4.60-5.80); White Blood Count 8.7 X10*3/uL (4.8-10.8)
[2025-05-07 10:43] LABS: Partial Thromboplastin Time 31.7 SEC (26.0-36.8)
[2025-05-07 10:49] LABS: Alanine Aminotransferase 34 U/L (0-40); Albumin Level 4.6 g/dL (3.5-5.0); Alkaline Phosphatase 85 U/L (39-117); Anion Gap 12 (12-20); Aspartate Amino Transferase 46 U/L (5-37); Blood Urea Nitrogen 8 mg/dL (9-16); Calcium 9.3 mg/dL (8.4-10.2); Carbon Dioxide 26 mmol/L (22-29); Chloride 105 mmol/L (96-108); Creatinine Clr Calc Pharmacy 175.6; Estimated Glomerular Filt Rate > 60; Magnesium 1.9 mg/dL (1.6-2.6); Potassium 4.1 mmol/L (3.3-5.1); Sodium 139 mmol/L (135-145); Total Protein 7.7 g/dL (6.5-8.0)
[2025-05-07 10:54] LABS: B Type Natriuretic Peptide 16 pg/mL (<100)
[2025-05-07 10:58] LABS: Troponin-I High Sensitivity < 2.7 ng/L (<3.5-35.0)
--- OUTSIDE RECORDS SUMMARY | 2025-05-07 11:42 | XMS_ITS | Clinical Summary ---
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 Pt reported prior history of almost HI , upon review of ED visit, no dx of HI or anginal CP made. - Pt to [...] 78 12/13/2021 9:09 AM EST Temperature 36.6 C (97.8 F) 11/17/2020 10:29 AM EST Respiratory Rate - - Oxygen [...] Additional history exists Hypertension Screening (#1) 12/13/2022 [id number] ( season) 2024 12/13/2021, 03/29/2021, 03/01/2021 Alcohol [...] medical examination with abnormal findings Morbid obesity ([facility]) Body mass index 40.0-44.9, adult ([facility]) from Last 3 Months or Most Recently Relevant to Health Maintenance Results * HIV, 4th Generation (12/24/2020 3:41 PM EST) CHIV Nonreactive Nonreactive [facility] Serum Blood / Unknown 12/24/2020 3 :41 PM EST 12/24/2020 3:41 PM EST Narrative [facility] - 12/25/2020 7:14 PM EST patient is not fasting. us Anna Davila MD LAB - BLOOD DRAW Final Resul t [facility] CLIA# [id number] [address] [place] [address], [place] [phone] * Hepatitis C Antibody (12/24/2020 3:41 PM EST) Pathologist [facility] HEPATITIS C AB Nonreactive Nonreactive [facility] Serum Blood / Unknown 12/24/2020 3 :41 PM EST 12/24/2020 3:41 PM EST Narrative [facility] - 12/25/2020 7:14 PM EST patient is not fasting. Anna Davila MD LAB - BLOOD DRAW Final Resul t Performing Organization Address [facility] de Phone Number [facility] CLIA# [id number] [address] [place] [address], [place] [phone] * (ABNORMAL) A1C (12/24/2020 3:41 PM EST) Pathologist [facility] HB1C 5.8(H) 4.8 - 5.6 % [facility] Comment: <5.7%: Normal Range 5.7-6.4%: Increased risk for Diabetes >6.5%: Diabetic Range Lowering Hemoglobin A1C to below or around 7% has been shown to reduce microvascular and neuropathic complications of Type 1 and Type 2 Diabetes. Therefore, for microvascular prevention, the Hemoglobin A1C goal for non- adults in general is less than 7% (2010 ADA) MEAN GLUC 120 mg/dL [facility] Whole blood specimen (specimen) Blood / Unknown 12/24/2020 3:41 PM EST 12/24/2020 3:41 PM EST Narrative [facility] - 12/24/2020 4:24 PM EST patient is not fasting. Anna Davila MD LAB - BLOOD DRAW Final Resul t Performing Organization Address [facility] Co de Phone Number [facility] CLIA# [id number] [address] [place] [address], [place] [phone] from Last 3 Months or Most Recently Relevant to Health Maintenance [place] [employer] NET DENTAL [place] [facility] WORK[employer] Care Teams Soft Tile Setter Relationship Specialty Start Date End Date Winnie Brandon MD [address] [place] [address] PCP - General Family Medicine, Physician 03/12/21
[2025-05-07 12:01] VITALS: BP 161/105; PULSE 73; RESP 17; TEMP 36.4; O2SAT 97
[2025-05-07 12:15] LABS: Troponin-I High Sensitivity < 2.7 ng/L (<3.5-35.0)
[2025-05-07 12:54] VITALS: BP 161/105; PULSE 73; RESP 17; TEMP 36.4; O2SAT 97
== END 2025-05-07 13:00 | disposition home or self-care (01) ==
PROVIDERS: Physician Assistant Medical; Emergency Provider Emergency Medicine Emergency Medical Services
DX: R07.89 Other chest pain (principal); R03.0 Elevated blood-pressure reading, without diagnosis of hypertension; R00.2 Palpitations
CPT/HCPCS: 36415; 71046; 80053; 83735; 83880; 84484; 85025; 85730; 93005; 96374; 96375; 99284; J2270; J2405; J2470

== ENCOUNTER → 2025-05-07 09:38 | Outpatient (BNV) | payer OTHER, SELFPAY | PROVIDERS: Emergency Provider Emergency Medicine Emergency Medical Services; Visit Provider Internal Medicine Cardiovascular Disease | DX: R07.89 Other chest pain (principal) | CPT/HCPCS: 93010 ==

== ENCOUNTER → 2025-05-07 09:56 | Outpatient (BNV) | payer OTHER, SELFPAY | PROVIDERS: Visit Provider Radiology Vascular & Interventional Radiology | DX: R07.9 Chest pain, unspecified (principal) | CPT/HCPCS: 71046 ==

== ENCOUNTER → 2025-06-06 10:34 | Outpatient (BNVA) | payer OTHER, SELFPAY | PROVIDERS: Visit Provider Internal Medicine | DX: Z09 Encounter for follow-up examination after completed treatment for conditions other than malignant neoplasm (principal); M25.512 Pain in left shoulder; G56.02 Carpal tunnel syndrome, left upper limb | CPT/HCPCS: 73030; 99203 ==

== ENCOUNTER → 2025-06-09 11:04 | Outpatient (BNVA) | payer OTHER, SELFPAY | PROVIDERS: Visit Provider Internal Medicine | DX: M25.512 Pain in left shoulder (principal); G56.02 Carpal tunnel syndrome, left upper limb | CPT/HCPCS: 99213 ==

== ENCOUNTER → 2025-06-16 13:47 | Outpatient (BNVA) | payer OTHER, SELFPAY | PROVIDERS: Visit Provider Physician Assistant Medical | DX: M24.812 Other specific joint derangements of left shoulder, not elsewhere classified (principal); M25.812 Other specified joint disorders, left shoulder; S16.1XXD Strain of muscle, fascia and tendon at neck level, subsequent encounter; M54.12 Radiculopathy, cervical region | CPT/HCPCS: 99213 ==

== ENCOUNTER → 2025-06-19 18:49 | Outpatient (BNV) | payer OTHER, SELFPAY | PROVIDERS: Visit Provider Radiology Diagnostic Radiology | DX: M75.42 Impingement syndrome of left shoulder (principal) | CPT/HCPCS: 73221 ==

== ENCOUNTER 2025-06-19 19:46 | Outpatient (REF) | payer OTHER, SELFPAY ==
--- NOTE | ~2025-06-19 | MR_ITS ---
EXAMINATION: MR SHOULDER WITHOUT CONTRAST, LEFT CLINICAL INFORMATION: Pain, left shoulder. Limited motion, left shoulder. COMPARISON: Correlated to x-ray dated June 06, 2025. TECHNIQUE: MRI of the shoulder without contrast was performed on a high-field scanner. FINDINGS: ROTATOR CUFF: Intact. There is a subtle signal within the myotendinous fibers of the supraspinatus muscle secondary to spurring of the inferior aspect in the left acromioclavicular joint causing superior concave deformity. There is no retraction of the supraspinatus tendon or rotator cuff. BICEPS: There is a 16 mm teardrop shaped fluid surrounding the posterior medial aspect of the long head of biceps tendon sheath. CORACOACROMIAL ARCH: The undersurface of the acromion is spurring with associated low signal abnormality along the articular surface likely due to sclerosis . LABRUM/CAPSULE: Normal. GLENOHUMERAL JOINT/MARROW: Normal. MR/MR shoulder LT wo con IMPRESSION: Spurring inferior acromioclavicular joint causing likely impingement syndrome upon the supraspinatus myotendinous fibers. Consider long head of biceps tendinitis/tenosynovitis versus adhesive capsulitis Electronically signed by: Kavin San MD 06/20/2025 08:13 AM EDT
--- OUTSIDE RECORDS SUMMARY | 2025-06-19 19:49 | XMS_ITS | Encounter Summary ---
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 Name Role Phone Pcp-Confirmed, No Primary Care Provider Unavaila ble Winnie Hammond MD Primary Care Provider + Tisha Shields MD Unavailable Unavailable Winnie Hammond MD Unavailable [phone] Reason for Visit * Reason Onset Date Comments Other 12/17/2019 Pt is requesting a referral be faxed to [facility] (FAX: [phone]) Encounter Details Date Type Department Care Team (Late st Contact Info) Description 12/17/2019 Telephone Orthopaedic Surgery [address] [place] [address] Facilities [facility]ator [facility] [place] [id number] Sang Jules MD [address] [place] [address], [place] [address] Other (Pt is requesting a referral be faxed to [facility] (FAX: [phone]) ) Social History Tobacco Use Types Packs/Day Years Used Date Smoking Tobacco: Never Smokeless Tobacco: Never Alcohol Use Standard Drinks/Week Comments Yes 0 (1 standard drink = 0.6 oz pur e alcohol) rare Housing Answer Date Recorded What is your living situation today? I have a [facility] to live 08/17/2018 Sex and Gender Information Value Date Recorded Sex Assigned at Male 04/28/2023 10:34 AM EDT Legal Sex Male 10:40 AM EDT Gender Identity Male 04/05/2023 10:29 PM EDT Sexual Orientation Straight 04/05/2023 10 :29 PM EDT documented as of this encounter Miscellaneous Notes * Telephone Encounter - Serge Jones - 12/17/2019 9:37 AM EST Patient Reported Reason for Call Patient presents with ??? Other Pt is requesting a referral be faxed to [facility] (FAX: [phone]) Fact Finding Questions Reason for call comments field updated: Yes documented in this encounter Plan of Treatment Upcoming Encounters Date Type Department Care Team (Late st Contact Info) Description 07/08/2025 3:00 PM EDT Office Visit [address] [phone] Winnie Hammond MD [address] [place] [id number] documented as of this encounter Visit Diagnoses Not on filedocumented in this encounter Additional Health Concerns Infection Onset Date Last Indicated Resolved Time COVID-19 Rule Out 08/04/2020 08/04/2020 08/04/2020 11:10 PM EDT documented as of this encounter Care Teams Metal Casket Maker Relationship Specialty Start Date End Date Pcp-Confirmed, No PCP - General 08/17/18 03/11/21 Winnie Hammond MD PCP - General 03/12/21 Tisha Shields MD PCP - Insurance 08/08/24 02/11/25 Winnie Hammond MD [address] [place] [address] PCP - Insurance 02/12/25 documented as of this encounter
--- OUTSIDE RECORDS SUMMARY | 2025-06-19 19:49 | XMS_ITS | Clinical Summary ---
Author Organization [facility] Address [address] [place] [address] Care Team Providers Care Bag Loader Machine Operator Name Role Phone Winnie Brandon MD Primary Care Provider [phone] Source Comments PLEASE NOTE, if this patient [...] (FLONASE) 50 mcg/actuation nasal spray Place 1 [place] in both nostrils once daily 16 g [...] 7 Tablet 1 Active dextran 70-hypromellose (ARTIFICIAL TEARS,[id number] PRO,) 0.1-0.3 % dropIndications :Dry eyes Place [...] . Pt reported prior history of almost AR , upon review of ED visit, no dx of AR or anginal CP made. - Pt to [...] Additional history exists Hypertension Screening (#1) 12/13/2022 [id number] ( season) 2024 12/13/2021, 03/29/2021, 03/01/2021 Alcohol and Drug Screen 11/06/2024 12/13/19 22, 11/11/2019, 03/13/2019, Additional history exists Depression Annual Screen 11/06/2024 Imm-Influenza (#1) 2025 11/17/2020, 1 11/12/2018, 08/17/2018, Additional history exists Imm-DTaP/Tdap/Td (3 - [...] medical examination with abnormal findings Morbid obesity ([facility]) Body mass index 40.0-44.9, adult ([facility]) from Last 3 Months or Most Recently Relevant to Health Maintenance Results * HIV, 4th Generation (12/24/2020 3:41 PM EST) CHIV Nonreactive Nonreactive [facility] Serum Blood / Unknown 12/24/2020 3 :41 PM EST 12/24/2020 3:41 PM EST Narrative [facility] - 12/25/2020 7:14 PM EST patient is not fasting. us Anna Davila MD LAB - BLOOD DRAW Final Resul t [facility] CLIA# [id number] [address] [place] [address], [place] [phone] * Hepatitis C Antibody (12/24/2020 3:41 PM EST) HEPATITIS C AB Nonreactive Nonreactive [facility] Serum Blood / Unknown 12/24/2020 3 :41 PM EST 12/24/2020 3:41 PM EST Narrative [facility] - 12/25/2020 7:14 PM EST patient is not fasting. Anna Davila MD LAB - BLOOD DRAW Final Resul t Performing Organization Address [facility] de Phone Number [facility] CLIA# [id number] [address] [place] [address], [place] [phone] * (ABNORMAL) A1C (12/24/2020 3:41 PM EST) Pathologist [facility] HB1C 5.8(H) 4.8 - 5.6 % [facility] Comment: <5.7%: Normal Range 5.7-6.4%: Increased risk for Diabetes >6.5%: Diabetic Range Lowering Hemoglobin A1C to below or around 7% has been shown to reduce microvascular and neuropathic complications of Type 1 and Type 2 Diabetes. Therefore, for microvascular prevention, the Hemoglobin A1C goal for non- adults in general is less than 7% (2010 ADA) MEAN GLUC 120 mg/dL [facility] Whole blood specimen (specimen) Blood / Unknown 12/24/2020 3:41 PM EST 12/24/2020 3:41 PM EST Narrative [facility] - 12/24/2020 4:24 PM EST patient is not fasting. Anna Davila MD LAB - BLOOD DRAW Final Resul t Performing Organization Address [facility] Co de Phone Number [facility] CLIA# [id number] [address] [place] [address], [place] [phone] from Last 3 Months or Most Recently Relevant to Health Maintenance Insurance [place] NET HEALTH SAFETY NET DENTAL [employer] [facility] [employer] WORK[employer] Care Teams Bag Loader Machine Operator Relationship Specialty Start Date End Date Winnie Brandon MD [address] [place] [address] PCP - General Family Medicine, Physician 03/12/21
--- OUTSIDE RECORDS SUMMARY | 2025-06-19 19:49 | XMS_ITS | Clinical Summary ---
Author Organization [facility] Address [address] [place] [address] Phone Care Team Providers Care Personnel Worker Name Role Phone Unknown, Unknown MD Primary Care Provider Manda Brink PT Unavailable [email or web address] Allergies No known active allergies Medications ibuprofen (ADVIL,MOTRIN) 800 MG tablet Take 800 mg by mouth every 6 (six) hours as needed for pain (specific location in comments). Active Active Problems Problem Noted Date Diagnosed Date Chronic left shoulder pain 01/11/2021 Immunizations Immunization Administration Dates Next Due COVID-19 (Pre-08/28) Moderna Vaccine, mRNA, PF 12/13/2021,03/29/2021,03/01/2021 Hepatitis B Adult 11/11/2022 Influenza Quadrivalent [facility] Preservative Free IM 11/11/2022 MMR 11/11/2022,01/08/2018 Tdap 01/08/2018,07/24/2017 Varicella 11/11/2022 Social History Tobacco Use Types Packs/Day Years Used Date Smoking Tobacco: Never Assessed Education Answer Date Recorded Are you interested in more education? Not on amy e 03/04/2023 Are you concerned about learning? Not on file 03/04/2023 No 03/04/2023 No 03/04/2023 Digital Access Answer Date Recorded No 04/01/2023 No 04/01/2023 Reliable internet access at home? Not on file 04/01/2023 Device with a working camera? Not on file Sex and Gender Information Value Date Recorded Sex Assigned at Male 10/28/2022 11:16 AM EST Legal Sex Male 5:24 PM EST Gender Identity Male 10/28/2022 11:16 AM EST Sexual Orientation Straight 10/28/2022 11 :16 AM EST Plan of Treatment Health Maintenance Due Date Last Done Comments DEPRESSION SCREENING 2000 SMOKING Hx and SMOKELESS TOBACCO SCREENING 2001 HIV ONE-TIME SCREENING (18-6 5 YEARS) 2006 COVID-19 VACCINE (2023-2 5 season) 2024 12/13/2021, 03/29/2021, 03/01/2021 LIPID PANEL 12/24/2025 12/24/2020, 12/24/2020 Adult Td,Tdap Booster 01/09/2028 01/08/2018 , 07/24/2017 HEPATITIS C SCREENING Completed 12/24/2020 HEPATITIS A VACCINES Aged Out No long er eligible based on patient's age to complete this topic HIB VACCINES Aged Out No longer eligi ble based on patient's age to complete this topic MENINGOCOCCAL VACCINES (ACWY) Aged Out No longer eligible based on patient's age to complete this topic MENINGOCOCCAL VACCINES (B) Aged Out N o longer eligible based on patient's age to complete this topic PNEUMOCOCCAL VACCINES (0-49 years) Aged Out No longer eligible b ased on patient's age to complete this topic Medical Devices Not on file Insurance [employer] INSURANCE Care Teams Personnel Worker Relationship Specialty Start Date End Date Unknown, Unknown, MD PCP - General 12/01/20 Manda Yates, PT Physical Therapist Physical Therapy 02/25/21 Additional Source Comments The information contained in this document represents components of the legal health record. It is not the complete legal health record.[facility]
== END 2025-06-19 19:47 | disposition home or self-care (01) ==
LOC: HO.MRI 19:46
PROVIDERS: Visit Provider Internal Medicine
DX: M25.512 Pain in left shoulder (principal)
CPT/HCPCS: 73221

== ENCOUNTER → 2025-06-25 11:34 | Outpatient (BNVA) | payer OTHER, SELFPAY | PROVIDERS: Visit Provider Internal Medicine | DX: M25.512 Pain in left shoulder (principal) | CPT/HCPCS: 99214 ==

== ENCOUNTER → 2025-07-11 11:30 | Outpatient (BNVA) | payer OTHER, SELFPAY | PROVIDERS: Visit Provider Internal Medicine | DX: M79.602 Pain in left arm (principal); M25.512 Pain in left shoulder; M54.2 Cervicalgia | CPT/HCPCS: 99213 ==

== ENCOUNTER → 2025-08-01 11:19 | Outpatient (BNVA) | payer OTHER, SELFPAY | PROVIDERS: Visit Provider Internal Medicine | DX: R20.0 Anesthesia of skin (principal); M25.812 Other specified joint disorders, left shoulder | CPT/HCPCS: 99213 ==

== ENCOUNTER → 2025-08-15 10:59 | Outpatient (BNVA) | payer OTHER, SELFPAY | PROVIDERS: Visit Provider Internal Medicine | DX: M25.812 Other specified joint disorders, left shoulder (principal); R20.0 Anesthesia of skin; M54.2 Cervicalgia | CPT/HCPCS: 99213 ==

== ENCOUNTER 2025-08-29 14:27 | Outpatient (REF) | payer OTHER, SELFPAY ==
--- NOTE | 2025-08-29 | EMG_ITS ---
Chief complaint: Left hand numbness, mainly 1st to 3rd digits Reason for referral: Evaluate for Carpal Tunnel Syndrome versus cervical radiculopathy Referred by: Dr. Louis Payne Procedure done: Left upper extremity NCS/EMG Precautions and/or limitations: None The limb temperature was monitored continuously and remained between 32-36 degrees C during the performance of the NCS. Nerve Conduction Studies Anti Sensory Summary Table ?Stim Site NR Onset (ms) Norm Onset (ms) Peak (ms) Norm Peak (ms) O-P Amp (?V) Norm O-P Amp Site1 Site2 Delta-0 (ms) Dist (cm) Dennis (m/s) Norm Dennis (m/s) Left Median Anti Sensory (2nd Digit) Wrist ? 2.7 3.3 <3.6 30.3 >10 Wrist 2nd Digit 2.7 14.0 52 Left Ulnar Anti Sensory (5th Digit) Wrist ? 2.6 3.3 <3.7 21.7 >15.0 Wrist 5th Digit 2.6 14.0 54 Motor Summary Table ?Stim Site NR Onset (ms) Norm Onset (ms) O-P Amp (mV) Norm O-P Amp iAmp (mV) Amp (1st) (%) Site1 Site2 Delta-0 (ms) Dist (cm) Dennis (m/s) Norm Dennis (m/s) Left Median Motor (Abd Poll Brev) Wrist ? 3.4 <3.9 15.6 >4.5 17.7 100.0 Elbow Wrist 4.4 25.0 57 >45 Elbow ? 7.8 14.7 16.9 94.2 Left Ulnar Motor (Abd Dig Minimi) Wrist ? 3.0 <3.0 10.8 >5 12.7 100.0 B Elbow Wrist 3.8 23.5 62 >45 B Elbow ? 6.8 9.9 11.9 91.7 A Elbow B Elbow 1.2 10.0 83 >45 A Elbow ? 8.0 9.9 12.0 91.7 Comparison Summary Table ?Stim Site NR Peak (ms) Norm Peak (ms) P-T Amp (?V) Site1 Site2 Delta-P (ms) Norm Delta (ms) Left Median/Radial Dig I Comparison (Digit 1 - 10cm) Median ? 2.7 <2.9 32.8 Median Radial 0.4 Radial ? 2.3 <2.8 22.8 EMG ?Side Muscle Nerve Root Ins Act Fibs Psw Amp Dur Poly Recrt Int Pat Comment Left 1stDorInt Ulnar C8-T1 Nml Nml Nml Nml Nml 0 Nml Complete Left FlexCarRad Median C6-7 Nml Nml Nml Nml Nml 0 Nml Complete Left Biceps Musculocut C5-6 Nml Nml Nml Nml Nml 0 Nml Complete Left Triceps Radial C6-7-8 Nml Nml Nml Nml Nml 0 Nml Complete Left Deltoid Axillary C5-6 Nml Nml Nml Nml Nml 0 Nml Complete FINDINGS: All motor and sensory nerves tested showed normal latencies, amplitudes and conduction velocities. Concentric needle EMG was performed in selected muscles of the left upper extremity and cervical paraspinals. Study did not reveal signs of electric abnormalities as shown in the table above. IMPRESSION: 1. This is a normal study. 2. There is no electrodiagnostic evidence for median neuropathy, ulnar neuropathy, brachial plexopathy, or cervical radiculopathy. Thank you for your kind referral. Mago Tamez MD, ALFREDO Board Certified, [place] Board of Physical Medicine and Rehabilitation (ABPMR) Board Certified, [place] Board of Electrodiagnostic Medicine (ABEM) CODIN [id number], 1 extremity MTDD
--- OUTSIDE RECORDS SUMMARY | 2025-08-29 16:21 | XMS_ITS | Encounter Summary ---
Author Organization [facility] r Address [address] [place] [address] Phone Care Team Providers Care Salt Miner Name Role Phone Winnie Hammond MD Primary Care Provider + Tisha Shields MD Unavailable Unavailable Winnie Hammond MD Unavailable [phone] Reason for Visit * Reason Onset Date Comments Insurance Issues 12/05/2024 APPT FOR PRIMAR YCARE 12/19/2024 Encounter Details Date Type Department Care Team (Late st Contact Info) Description 12/05/2024 Telephone [facility] [address] [place] [address] Winnie Hammond MD [address] [place] [address] Insurance Issues (APPT FOR PRIMARYCARE 12/19/2024) Social History Tobacco Use Types Packs/Day Years Used Date Smoking Tobacco: Some Days Smokeless Tobacco: Never Alcohol Use Standard Drinks/Week Comments No 0 (1 standard drink = 0.6 oz pur e alcohol) rare Housing Answer Date Recorded What is your living situation today? I have a [facility] place to live 12/13/2021 Medications Answer Date Recorded Do you have trouble paying for prescriptions? No 12/13/2021 Utilities Answer Date Recorded Do you have trouble paying f or utilites (heat, electricity, internet, or phone bill)? No 12/13/2021 Caregiving [place] Answer Date Recorded Taking care of a child, elder, or disabled perso n No 12/13/2021 Employment Answer Date Recorded Looking for a job, changing jobs, or getting job training No 12/13/2021 Education Answer Date Recorded Getting more education or he lp with school (early child education under 5 years old, high school diploma or GED, college level education) No 12/13/2021 Food Answer Date Recorded Within the past 12 months, w ere you worried whether your food would run out before you got money to buy more? Never true 0 12/13/2021 Within the past 12 months, d id the food you bought just didn't last and you didn't have money to get more? Never true 05/2022 Transportation Answer Date Recorded Do you have trouble getting transportation to medical appointments? No 12/13/2021 Social Support Answer Date Recorded Getting more education or he lp with school (early child education under 5 years old, high school diploma or GED, college level education) No 12/13/2021 Sex and Gender Information Value Date Recorded Sex Assigned at Male 04/28/2023 10:34 AM EDT Legal Sex Male 10:40 AM EDT Gender Identity Male 04/05/2023 10:29 PM EDT Sexual Orientation Straight 04/05/2023 10 :29 PM EDT documented as of this encounter Miscellaneous Notes * Telephone Encounter - Jareth Peterson - 12/05/2024 2:00 PM EST PRE REG PENDING I CALLED PT AND I ROUTED TO [facility] I ALREADY LEFT A MESSEGE. documented in this encounter Plan of Treatment Upcoming Encounters Date Type Department Care Team (Late st Contact Info) Description 10/13/2025 11:10 AM EST Office Visit [address] [address] Winnie Hammond MD [address] [place] [address] documented as of this encounter Visit Diagnoses Not on filedocumented in this encounter Care Teams Salt Miner Relationship Specialty Start Date End Date Winnie Hammond MD PCP - General 03/12/21 Tisha Shields MD PCP - Insurance 08/08/24 02/11/25 Winnie Hammond MD [address] [place] [address] PCP - Insurance 02/12/25 documented as of this encounter
--- OUTSIDE RECORDS SUMMARY | 2025-08-29 16:21 | XMS_ITS | Encounter Summary ---
Author Organization [facility] r Address [address] [place] [address] Phone Care Team Providers Care Repack Room Worker Name Role Phone Pcp-Confirmed, No Primary Care Provider Unavaila ble Winnie Hammond MD Primary Care Provider + Tisha Shields MD Unavailable Unavailable Winnie Hammond MD Unavailable [phone] Reason for Visit * Reason Onset Date Comments Appointment 07/02/2020 Encounter Details Date Type Department Care Team (Late st Contact Info) Description 07/02/2020 Telephone [facility] [address] [place] [phone] Mayi Genao R, [place] [address] Appointment Social History Tobacco Use Types Packs/Day Years Used Date Smoking Tobacco: Never Smokeless Tobacco: Never Alcohol Use Standard Drinks/Week Comments Yes 0 (1 standard drink = 0.6 oz pur e alcohol) rare Housing Answer Date Recorded What is your living situation today? I have a [facility] place to live 08/17/2018 Sex and Gender Information Value Date Recorded Sex Assigned at Male 04/28/2023 10:34 AM EDT Legal Sex Male 10:40 AM EDT Gender Identity Male 04/05/2023 10:29 PM EDT Sexual Orientation Straight 04/05/2023 10 :29 PM EDT documented as of this encounter Miscellaneous Notes * Telephone Encounter - Nury Powell - 07/02/2020 3:00 PM EDT Patient Reported Reason for Call Patient presents with ??? Appointment Jonatan is calling stating she needs a peer to peer with you regarding patient's Therapy, patient is currently a Workers' Comp Case she said she was extending patient therapy. documented in this encounter Plan of Treatment Upcoming Encounters Date Type Department Care Team (Late st Contact Info) Description 10/13/2025 11:10 AM EST Office Visit [facility] [address] [place] [phone] Winnie Hammond MD [address] [place] [address] documented as of this encounter Visit Diagnoses Not on filedocumented in this encounter Additional Health Concerns Infection Onset Date Last Indicated Resolved Time COVID-19 Rule Out 08/04/2020 08/04/2020 08/04/2020 11:10 PM EDT documented as of this encounter Care Teams Repack Room Worker Relationship Specialty Start Date End Date Pcp-Confirmed, No PCP - General 08/17/18 03/11/21 Winnie Hammond MD PCP - General 03/12/21 Tisha Shields MD PCP - Insurance 08/08/24 02/11/25 Winnie Hammond MD [address] [place] [address] PCP - Insurance 02/12/25 documented as of this encounter
--- OUTSIDE RECORDS SUMMARY | 2025-08-29 16:21 | XMS_ITS | Clinical Summary ---
Author Organization [facility] Address [address] [place] [address] Care Team Providers Care Human Resources Trainee Name Role Phone Winnie Brandon MD Primary Care Provider [phone] Source Comments PLEASE NOTE, if this patient [...] (FLONASE) 50 mcg/actuation nasal spray Place 1 [place] in both nostrils once daily 16 g [...] 7 Tablet 1 Active dextran 70-hypromellose (ARTIFICIAL TEARS,[id number]-HF PRO,) 0.1-0.3 % dropIndications :Dry eyes Place [...] . Pt reported prior history of almost MT , upon review of ED visit, no dx of MT or anginal CP made. - Pt to [...] 3 - 19 + 3-dose series) 2007 Imm-HPV (1 - 3-dose SCDM series) 2015 Annual Wellness (Adult): Indicated (All Coverage) 12/24/2021 12/24/2020, 11/17/2016 Diabetes Screening 12/24/2021 12/24/2020, 1 , 07/24/2017, Additional history exists Hypertension Screening (#1) 12/13/2022 Alcohol and Drug Screen 11/06/2024 12/13/19 22, 11/11/2019, 03/13/2019, Additional history exists Depression Annual Screen 11/06/2024 [id number] ( season) 2025 12/13/2021, 03/29/2021, 03/01/2021 Imm-Influenza (#1) 2025 11/17/2020, 1 11/12/2018, 08/17/2018, Additional history exists Imm-DTaP/Tdap/Td (3 - Td or Tdap) 01/09/2028 018, 07/24/2017 HIV Screening Completed 12/24/2020, 11/06, 11/17/2016 Hepatitis C Screening Completed 12/24/2020 Syphilis Screening Discontinued 12/24/2020, 11/17/2016 Procedures Procedure Name Priority Date/Time Associated Diagnosis Comments HIV 4TH GEN Routine 12/24/2020 3:41 PM EST Encounter for general adult medical examination with abnormal findings SYPHILIS IGG/IGM SCREEN W/ REFLEX TO RPR Routine 12/24/2020 3:41 PM EST Encounter for general adult medical examination with abnormal findings HEP C AB Routine 12/24/2020 3:41 PM EST Encounter for general adult medical examination with abnormal findings HEMOGLOBIN GLYCOSYLATED A1C Routine 12/24/2020 3:41 PM EST Encounter for general adult medical examination with abnormal findings Morbid obesity ([facility]) Body mass index 40.0-44.9, adult ([facility]) from Last 3 Months or Most Recently Relevant to Health Maintenance Results * Syphilis (for screening) (12/24/2020 3:41 PM EST) SYPH Non-Reacti ve Non-Reacti ve [facility] Comment: Interpretation: No serologic evidence of syphilis infection. If recent exposure is suspected, redraw sample in 2 to 4 weeks and repeat testing. Blood specimen (specimen) Blood / Unknown 12/24/2020 3:41 PM EST 12/24/2020 3:41 PM EST [facility] - 12/25/2020 4:35 PM EST patient is not fasting. us Anna Davila MD LAB - BLOOD DRAW Final Resul t [facility] CLIA# [id number] [address] [place] [address], [place] [phone] * HIV, 4th Generation (12/24/2020 3:41 PM EST) CHIV Nonreactive Nonreactive [facility] Serum Blood / Unknown 12/24/2020 3 :41 PM EST 12/24/2020 3:41 PM EST [facility] - 12/25/2020 7:14 PM EST patient is not fasting. us Anna Davila MD LAB - BLOOD DRAW Final Resul t Performing Organization Address City/[facility]/ZIP Co de Phone Number [facility] CLIA# [id number] [address] [place] [address], [place] [phone] * Hepatitis C Antibody (12/24/2020 3:41 PM EST) HEPATITIS C AB Nonreactive Nonreactive [facility] Serum Blood / Unknown 12/24/2020 3 :41 PM EST 12/24/2020 3:41 PM EST [facility] - 12/25/2020 7:14 PM EST patient is not fasting. us Anna Davila MD LAB - BLOOD DRAW Final Resul t [facility] CLIA# [id number] [address] [place] [address], * (ABNORMAL) A1C (12/24/2020 3:41 PM EST) HB1C 5.8(H) 4.8 - 5.6 % [facility] Comment: <5.7%: Normal Range 5.7-6.4%: Increased risk for Diabetes >6.5%: Diabetic Range Lowering Hemoglobin A1C to below or around 7% has been shown to reduce microvascular and neuropathic complications of Type 1 and Type 2 Diabetes. Therefore, for microvascular prevention, the Hemoglobin A1C goal for non- adults in general is less than 7% (2010 ADA) MEAN GLUC 120 mg/dL [facility] Whole blood specimen (specimen) Blood / Unknown 12/24/2020 3:41 PM EST 12/24/2020 3:41 PM EST Narrative [facility] - 12/24/2020 4:24 PM EST patient is not fasting. Anna Davila MD LAB - BLOOD DRAW Final Resul t [facility] CLIA# [id number] [address] [place] [address], from Last 3 Months or Most Recently Relevant to Health Maintenance Insurance [place] NET [facility] DENTAL [employer] WORK[employer] Care Teams Human Resources Trainee Relationship Specialty Start Date End Date Winnie Brandon MD [address] [place] [phone] PCP - General Family Medicine, Physician 03/12/21
--- OUTSIDE RECORDS SUMMARY | 2025-08-29 16:21 | XMS_ITS | Encounter Summary ---
Author Organization [facility] r Address [address] [place] [address] Phone Care Team Providers Care Hood Fitter Name Role Phone Winnie Hammond MD Primary Care Provider + Tisha Shields MD Unavailable Unavailable Winnie Hammond MD Unavailable [phone] Reason for Visit * Reason Onset Date Comments Appointment 12/31/2024 Encounter Details Date Type Department Care Team (Late st Contact Info) Description 12/31/[address] [facility] [address] [place] [address] Gideon Olivas, MICHELLE [address] [place], [place] [phone] Appointment Social History Tobacco Use Types Packs/Day Years Used Date Smoking Tobacco: Some Days Smokeless Tobacco: Never Alcohol Use Standard Drinks/Week Comments No 0 (1 standard drink = 0.6 oz pur e alcohol) rare Housing Answer Date Recorded What is your living situation today? I have a [facility] place to live 12/13/2021 Medications Answer Date Recorded Do you have trouble paying for prescriptions? No 12/13/2021 Utilities Answer Date Recorded Do you have trouble paying f or utilites (heat, electricity, internet, or phone bill)? No 12/13/2021 Caregiving [place] Answer Date Recorded Taking care of a [...] encounter Miscellaneous Notes * Telephone Encounter - Lizzie Walker - 12/31/2024 6:13 PM EST Pt called in to reschedule his BRIEF EYE EXAM on 01/02/2025. Best number to contact: [phone] documented in this encounter Plan of Treatment Upcoming Encounters Date Type Department Care Team (Late st Contact Info) Description 10/13/2025 11:10 AM EST Office Visit [address] [address] Winnie Hammond MD [address] [place] [address] documented as of this encounter Visit Diagnoses Not on filedocumented in this encounter Care Teams Hood Fitter Relationship Specialty Start Date End Date Winnie Hammond MD PCP - General 03/12/21 Tisha Shields MD PCP - Insurance 08/08/24 02/11/25 Winnie Hammond MD [address] [place] [address] PCP - Insurance 02/12/25 documented as of this encounter
--- OUTSIDE RECORDS SUMMARY | 2025-08-29 16:21 | XMS_ITS | Encounter Summary ---
Author Organization [facility] r Address [address] [place] [address] Phone Care Team Providers Care Doctor Of Podiatry Name Role Phone Winnie Hammnod MD Primary Care Provider + Winnie Hammond MD Unavailable [phone] Reason for Visit * Reason Comments Med Change Request Encounter Details Date Type Department Care Team (Late st Contact Info) Description 04/28/[address] [address] [place] [address] Social History Tobacco Use Types Packs/Day Years Used Date Smoking Tobacco: Some Days Smokeless Tobacco: Never Alcohol Use Standard Drinks/Week Comments No 0 (1 standard drink = 0.6 oz pur e alcohol) rare Housing Answer Date Recorded What is your living situation today? I have a [facility] to live 04/28/2025 Medications Answer Date Recorded Do you have trouble paying for prescriptions? No 04/28/2025 Utilities Answer Date Recorded Do you have trouble paying f or utilites (heat, electricity, internet, or phone bill)? No 04/28/2025 Caregiving [place] Answer Date Recorded Taking care of a child, elder, or disabled perso n No 04/28/2025 Employment Answer Date Recorded Looking for a job, changing jobs, or getting job training No 04/28/2025 Education Answer Date Recorded Getting more education or he lp with school (early child education under 5 years old, high school diploma or GED, college level education) No 04/28/2025 Food Answer Date Recorded Within the past 12 months, w ere you worried whether your food would run out before you got money to buy more? Never true 0 04/28/2025 Within the past 12 months, d id the food you bought just didn't last and you didn't have money to get more? Never true Transportation Answer Date Recorded Do you have trouble getting transportation to medical appointments? No 04/28/2025 Social Support Answer Date Recorded Getting more education or he lp with school (early child education under 5 years old, high school diploma or GED, college level education) No 04/28/2025 Sex and Gender Information Value Date Recorded Sex Assigned at Male 04/28/2023 10:34 AM EDT Legal Sex Male 10:40 AM EDT Gender Identity Male 04/05/2023 10:29 PM EDT Sexual Orientation Straight 04/05/2023 10 :29 PM EDT documented as of this encounter Plan of Treatment Upcoming Encounters Date Type Department Care Team (Late st Contact Info) Description 10/13/2025 11:10 AM EST Office Visit [facility] [address] [place] [address] Winnie Hammond MD [address] [place] [address] documented as of this encounter Visit Diagnoses Not on filedocumented in this encounter Care Teams Doctor Of Podiatry Relationship Specialty Start Date End Date Winnie Hammond MD PCP - General 03/12/21 Winnie Hammond MD [address] [place] [address] PCP - Insurance 02/12/25 documented as of this encounter
--- OUTSIDE RECORDS SUMMARY | 2025-08-29 16:21 | XMS_ITS | Encounter Summary ---
Author Organization [facility] r Address [address] [place] [address] Phone Care Team Providers Care Allied Health Teacher Name Role Phone Pcp-Confirmed, No Primary Care Provider Unavaila ble Winnie Hammond MD Primary Care Provider + Tisha Shields MD Unavailable Unavailable Winnie Hammond MD Unavailable [phone] Encounter Details Date Type Department Care Team (Late st Contact Info) Description 07/29/2019 Orders Only [facility] [address] [place] [phone] Winnie Hammond MD [address] [place] [address] Social History Tobacco Use Types Packs/Day Years Used Date Smoking Tobacco: Never Smokeless Tobacco: Never Alcohol Use Standard Drinks/Week Comments Yes 0 (1 standard drink = 0.6 oz pur e alcohol) rare Housing Answer Date Recorded What is your living situation today? I have a [facility] place to live 08/17/2018 Sex and [...] Description 10/13/2025 11:10 AM EST Office Visit [facility] [address] [facility] [place] [phone] Winnie Hammond MD [address] [place] [address] documented as of this encounter Procedures Procedure Name Priority Date/Time Associated Diagnosis Comments KASIA IRENE SHOULDER 2 VIEWS MINIMUM Routine 07/29/2019 9:54 AM EDT documented in this encounter Results * kasia Irene shoulder 2 views minimum (07/29/2019 9:54 AM EDT) Anatomical Region Laterality Modality Xray Auto [place] 07/29/2019 9:54 AM EDT Impressions 07/30/2019 9:39 AM EDT No acute osseous abnormality. I personally reviewed the study and agree with the dictated report. Narrative 07/30/2019 9:39 AM EDT EXAMINATION: KASIA IRENE SHOULDER 2 VIEWS MINIMUM HISTORY: LEFT SHOULDER PAIN X 1 WEEK S/P INJURY AT WORK . CONCERN FOR ROTATOR CUFF INJURY. COMPARISON: No prior studies are listed for comparison. TECHNIQUE: AP internal/external rotation and scapular views left shoulder. FINDINGS: No fracture. Joint alignment is anatomic. Joint spaces are preserved. Soft tissues are intact. Resulting Agency Comment Dictated By: KEVEN REYNOLDS M.D. Date: 07/30/2019 09:39 AM Electronically Signed By: KEVEN REYNOLDS M.D. Date: 07/30/2019 09:39 AM Procedure Note Keven Reynolds MD - 07/30/2019 EXAMINATION: [facility] LEFT SHOULDER 2 VIEWS MINIMUM HISTORY: LEFT SHOULDER PAIN X 1 WEEK S/P INJURY AT WORK . CONCERN FOR ROTATOR CUFF INJURY. COMPARISON: No prior studies are listed for comparison. TECHNIQUE: AP internal/external rotation and scapular views left shoulder. FINDINGS: No fracture. Joint alignment is anatomic. Joint spaces are preserved. Soft tissues are intact. IMPRESSION: No acute osseous abnormality. I personally reviewed the study and agree with the dictated report. Winnie Hammond MD IMG DIAGNOSTIC IMAGING O RDERABLES Final Result documented in this encounter Visit Diagnoses Not on filedocumented in this encounter Additional Health Concerns Infection Onset Date Last Indicated Resolved Time COVID-19 Rule Out 08/04/2020 08/04/2020 08/04/2020 11:10 PM EDT documented as of this encounter Care Teams Allied Health Teacher Relationship Specialty Start Date End Date Pcp-Confirmed, No PCP - General 08/17/18 03/11/21 Winnie Hammond MD PCP - General 03/12/21 Tisha Shields MD PCP - Insurance 08/08/24 02/11/25 Winnie Hammond MD [address] [place] [address] PCP - Insurance 02/12/25 documented as of this encounter
--- OUTSIDE RECORDS SUMMARY | 2025-08-29 16:21 | XMS_ITS | Encounter Summary ---
Author Organization [facility] r Address [address] [place] [address] Phone Care Team Providers Care Order Fulfillment Specialist Name Role Phone Pcp-Confirmed, No Primary Care Provider Unavaila ble Winnie Hammond MD Primary Care Provider + Tisha Shields MD Unavailable Unavailable Winnie Hammond MD Unavailable [phone] Encounter Details Date Type Department Care Team (Late st Contact Info) Description 08/05/2020 Orders Only Oral Surgery [facility] [address] [facility] [address] [place] [phone] Bret Robles, DDS Social History Tobacco Use Types Packs/Day Years Used Date Smoking Tobacco: Light Smoker Smokeless Tobacco: Never Alcohol Use Standard Drinks/Week [...] Orientation Straight 04/05/2023 10 :29 PM EDT COVID-19 Exposure Response Date Recorded In the last month, have you been in contact with someone who was confirmed or suspected to have Coronavirus / COVID-19? No / Unsure 08/07/2020 2:01 PM EDT documented as of this encounter Plan of Treatment Upcoming Encounters Date Type Department Care Team (Late st Contact Info) Description 10/13/2025 11:10 AM EST Office Visit [facility] [address] [place] [address] Winnie Hammond MD [address] [place] [address] documented as of this encounter Visit Diagnoses Not on filedocumented in this encounter Care Teams Order Fulfillment Specialist Relationship Specialty Start Date End Date Pcp-Confirmed, No PCP - General 08/17/18 03/11/21 Winnie Hammond MD PCP - General 03/12/21 Tisha Shields MD PCP - Insurance 08/08/24 02/11/25 Winnie Hammond MD [address] [place] [address] PCP - Insurance 02/12/25 documented as of this encounter
--- OUTSIDE RECORDS SUMMARY | 2025-08-29 16:21 | XMS_ITS | Clinical Summary ---
Author Organization [facility] Address [address] [place] [address] Phone Care Team Providers Care Sand Miller Name Role Phone Unknown, Unknown MD Primary Care Provider Manda Brink PT Unavailable [email or web address] Allergies No known active allergies Medications ibuprofen [...] SMOKELESS TOBACCO SCREENING 2001 HIV ONE-TIME SCREENING (18-65 YEARS) 2006 INFLUENZA VACCINE (#1) 2025 , 11/17/2020, 09/12/2019, Additional history exists COVID-19 VACCINE ( season) 2025 12/13/2021, 03/29/2021, 03/01/2021 LIPID PANEL 12/24/2025 12/24/2020, 12/24/2020 Adult Td,Tdap Booster 01/09/2028 01/08/2018, 017 HEPATITIS C SCREENING Completed 12/24/2020 HEPATITIS A [...] (0-49 years) Aged Out No longer eligible based on patient's age to complete this topic Medical Devices Not on file Insurance [employer] Care Teams Sand Miller Relationship Specialty Start Date End Date Unknown, Unknown, PCP - General 12/01/20 Manda Yates, PT Physical Therapist Physical Therapy 02/25/21 Additional Source Comments The information contained in this document represents components of the legal health record. It is not the complete legal health record.[facility]
--- OUTSIDE RECORDS SUMMARY | 2025-08-29 16:21 | XMS_ITS | Encounter Summary ---
Author Organization [facility] r Address [address] [place] [address] Phone Care Team Providers Care Sneller Hand Name Role Phone Pcp-Confirmed, No Primary Care Provider Unavaila ble Winnie Hammond MD Primary Care Provider + Tisha Shields MD Unavailable Unavailable Winnie Hammond MD Unavailable [phone] Reason for Visit * Reason Onset Date Comments Other 12/17/2019 Pt is requesting a referral be faxed to [facility] (FAX: [phone]) Encounter Details Date Type Department Care Team (Late st Contact Info) Description 12/17/2019 Telephone Orthopaedic Surgery [address] [place] [address] [facility] [employer] [facility] [place] [phone] Sang Jules MD [address] [place] [address], [place] [address] Other (Pt is requesting a referral be faxed to [facility] (FAX: [phone]) ) Social History Tobacco Use Types Packs/Day Years Used Date Smoking Tobacco: Never Smokeless Tobacco: Never Alcohol Use Standard Drinks/Week Comments Yes 0 (1 standard drink = 0.6 oz pur e alcohol) rare Housing Answer Date Recorded What is your living situation today? I have a [facility] to live 08/17/2018 Sex and Gender Information [...] is requesting a referral be faxed to [facility] (FAX: [phone]) Fact Finding Questions Reason for call comments field updated: Yes documented in this encounter Plan of Treatment Upcoming Encounters Date Type Department Care Team (Late st Contact Info) Description 10/13/2025 11:10 AM EST Office Visit [address] [phone] Winnie Hammond MD [address] [place] [address] documented as of this encounter Visit Diagnoses Not on filedocumented in this encounter Additional Health Concerns Infection Onset Date Last Indicated Resolved Time COVID-19 Rule Out 08/04/2020 08/04/2020 08/04/2020 11:10 PM EDT documented as of this encounter Care Teams Sneller Hand Relationship Specialty Start Date End Date Pcp-Confirmed, No PCP - General 08/17/18 03/11/21 Winnie Hammond MD PCP - General 03/12/21 Tisha Shields MD PCP - Insurance 08/08/24 02/11/25 Winnie Hammond MD [address] [place] [address] PCP - Insurance 02/12/25 documented as of this encounter
--- OUTSIDE RECORDS SUMMARY | 2025-08-29 16:21 | XMS_ITS | Encounter Summary ---
Author Organization [facility] r Address [address] [place] [address] Phone Care Team Providers Care Air Bag Stripper Name Role Phone Winnie Hammond MD Primary Care Provider + Tisha Shields MD Unavailable Unavailable Winnie Hammond MD Unavailable [phone] Reason for Visit * Reason Onset Date Comments Insurance Issues 02/05/2025 Appt on 5 Encounter Details Date Type Department Care Team (Late st Contact Info) Description 02/05/2025 Telephone [facility] [address] [place] [address] Winnie Hammond MD [address] [place] [address] Insurance Issues (Appt on 02/19/25) Social History Tobacco Use Types Packs/Day Years Used Date Smoking Tobacco: Some Days Smokeless Tobacco: Never Alcohol Use Standard Drinks/Week Comments No 0 (1 standard drink = 0.6 oz pur e alcohol) rare Housing Answer Date Recorded What is your living situation today? I have a [facility] place to live 12/13/2021 Medications Answer Date Recorded Do you have trouble paying for prescriptions? No 12/13/2021 Utilities Answer Date Recorded Do you have trouble paying f or utilites (heat, electricity, internet, or phone bill)? No 12/13/2021 Caregiving [place] Answer Date Recorded Taking care of a [...] encounter Miscellaneous Notes * Telephone Encounter - Santosh Mclean Sarah - 02/05/2025 11:07 AM EDT PRE REG PENDING Pt will contact his Ins. documented in this encounter Plan of Treatment Upcoming Encounters Date Type Department Care Team (Late st Contact Info) Description 10/13/2025 11:10 AM EST Office Visit [address] [phone] Winnie Hammond MD [address] [place] [address] documented as of this encounter Visit Diagnoses Not on filedocumented in this encounter Care Teams Air Bag Stripper Relationship Specialty Start Date End Date Winnie Hammond MD PCP - General 03/12/21 Tisha Shields MD PCP - Insurance 08/08/24 02/11/25 Winnie Hammond MD [address] [place] [address] PCP - Insurance 02/12/25 documented as of this encounter
--- OUTSIDE RECORDS SUMMARY | 2025-08-29 16:21 | XMS_ITS | Encounter Summary ---
Author Organization [facility] r Address [address] [place] [address] Phone Care Team Providers Care Mural Painter Name Role Phone Winnie Hammond MD Primary Care Provider + Tisha Shields MD Unavailable Unavailable Winnie Hammond MD Unavailable [phone] Encounter Details Date Type Department Care Team (Late st Contact Info) Description 12/31/2024 Telephone [facility] [address] [place] [address] Winnie Hammond MD [address] [place], [place] [phone] Social History Tobacco Use Types Packs/Day Years Used Date Smoking Tobacco: Some Days Smokeless Tobacco: Never Alcohol Use Standard Drinks/Week Comments No 0 (1 standard drink = 0.6 oz pur e alcohol) rare Housing Answer Date Recorded What is your living situation today? I have a [facility] place to live 12/13/2021 Medications Answer Date Recorded Do you have trouble paying for prescriptions? No 12/13/2021 Utilities Answer Date Recorded Do you have trouble paying f or utilites (heat, electricity, internet, or phone bill)? No 12/13/2021 Caregiving [place] Answer Date Recorded Taking care of a [...] Description 10/13/2025 11:10 AM EST Office Visit [facility] [address] [place] [phone] Winnie Hammond MD [address] [place] [address] documented as of this encounter Visit Diagnoses Not on filedocumented in this encounter Care Teams Mural Painter Relationship Specialty Start Date End Date Winnie Hammond MD PCP - General 03/12/21 Tisha Shields MD PCP - Insurance 08/08/24 02/11/25 Winnie Hammond MD [address] [place] [phone] PCP - Insurance 02/12/25 documented as of this encounter
--- OUTSIDE RECORDS SUMMARY | 2025-08-29 16:21 | XMS_ITS | Clinical Summary ---
Author Organization [facility] r Address [address] [place] [address] Phone Care Team Providers Care Import And Export Clerk Name Role Phone Winnie Hammond MD Primary Care Provider + Winnie Hammond MD Unavailable [phone] Allergies No known active allergies Medications acetaminophen (TYLENOL) 500 mg tablet Take 1 tablet (500 mg total) by mouth every 6 (six) hours as needed for pain. 90 tablet 3 5 Active diclofenac (VOLTAREN) 1% gel Apply 4 g topically 4 (four) times a day. Apply to left shoulder. 50 g 1 5 Active ibuprofen (ADVIL,MOTRIN) 600 mg tablet Take 1 tablet (600 mg total) by mouth every 8 (eight) hours as needed for pain. 60 tablet 1 5 Active capsaicin (ZOSTRIX) 0.025 % cream Apply topically 2 (two) times a day. 50 g 1 5 Active Active Problems Problem Noted Date Diagnosed Date Skin irritation 12/24/2020 Overview (03/31/2023): Pt reports 2wk erythematous patch on right [...] will f/u PRN if skin issues worsen. Caries 07/31/2020 Tooth pain 07/24/2020 Acute pain of left shoulder 03/17/2020 Assessment & Plan (10/19/2020 4:45 PM EST): Gurvinder is a 29 year old male with complaint of L shoulder pain d/t injury at work, 07/18/2019. Pt has attended 3 of 4 skilled PT treatment sessions since previous re-evaluation on 07/29/2020 and continues to show improving functional strength of the L shoulder as noted with improved functional reach height and weight with dumbbells in session today. However, pt has not met any new goals at today's re- evaluation. Heavy discussion today with comprehensive HEP developed for pt for independent management of shoulder strengthening x1 month before next PT appointment. Pt is still not able to tolerate lifting required for work-related tasks - although he would be appropriate to work with restrictions on shoulder. Pt continues to demonstrate decreased strength, endurance and functional mobility of the L shoulder. Plan for follow up in 4 weeks and further assess POC at that time. Pt is in agreement with current plan. Assessment & Plan (09/04/2020 6:36 PM EDT): Gurvinder is a 29 year old male with complaint of L shoulder pain d/t injury at work, 07/18/2019. Pt has attended 4 of 4 skilled PT treatment sessions since previous re-evaluation on 07/29/2020 and continues to make steady progress through all goals. Pt shows improved functional reach and strength with overhead tasks today. However, pt is still restricted in the amount of weight he can lift/carry as reviewed in objective testing today - limited to 1-2# for overhead tasks at this time due to pain & weakness. Pt is still unable tolerate lifting required for work-related tasks. In agreement with MD note: pt would be able to work with restrictions at this time. Due to continued decreased functional strength & shoulder mobility, pt would continue to benefit from skilled physical therapy for to progress scapular strengthening, improve scapulo-humeral rhythm, incorporate lifting mechanics, and maximize his return to PLOF for return to work. At this time, pt is not ready for a work hardening program and continues to require guidance from a skilled PT. Plan for continued physical therapy 1x/week for 4 weeks. Pt is in agreement with POC. Assessment & Plan (07/31/2020 4:59 PM EDT): Gurvinder is a 29 year old male with complaint of L shoulder pain d/t injury at work, 07/18/2019. Pt has attended 4 of 4 skilled PT treatment sessions since previous re-evaluation on 07/01/2020 and continues to make steady progress through all goals. Pt shows improved strength during objective testing and within therex today, however his strength is still limited, especially with overhead motions. Of note: pt with tenderness at bicep tendon, limiting bicep strength at this time. Pt is still unable to tolerate heavy lifting required for work-related tasks at this time. Patient would continue to benefit from skilled PT to continue to progress scapular strengthening, improve scapulo-humeral rhythm, incorporate lifting mechanics, and maximize his return to PLOF for return to work. At this time, pt is not ready for a work hardening program and continues to require guidance from a skilled PT. Plan for continued physical therapy 1x/week for 4 weeks. Pt is in agreement with POC. Assessment & Plan (07/02/2020 4:35 PM EDT): Gurvinder is a 29 year old male with complaint of L shoulder pain d/t injury at work, 07/18/2019. This is pts first session since previous re-evaluation. Patient with recent steriod injection on Monday, 06/26 and reports no pain since Monday in L shoulder. Pt shows improved shoulder AROM in session today however, he continues to show continued weakness at the L shoulder as demonstrated today with manual muscle testing, push ups, and planks. With therex today, pt with significant fatigue by end of session. He continues to show functional strength deficits and decreased scapular/RTC recruitment with overhead movements. Pts shoulder is still not able to tolerate heavy lifting required for work-related tasks at this time. Patient would continue to benefit from skilled PT to continue to progress scapular strengthening, improve scapulo-humeral rhythm, incorporate lifting mechanics, and maximize his return to PLOF for return to work. Plan for continued physical therapy 1x/week for 4 weeks with potential to progress to work hardening program for return to work. Pt is in agreement with POC. Assessment & Plan (05/29/2020 5:28 PM EDT): Gurvinder is a 29 year old male with complaint of L shoulder pain d/t injury at work, 07/18/2019. Since previous re-evaluation, pt has attended 3 of 3 physical therapy treatment sessions, via telehealth & in-person, and has shown good compliance with HEP. Patient continues to make progress towards goals, although decrease in shoulder AROM observed today compared to previous re-evaluation. Pt reports waking up with increased pain this morning. Pt continues to report decreased pain and improved use of shoulder with functional tasks. However, pt continues to show significant weakness at the L shoulder as demonstrated today with manual muscle testing, unilateral lift to shelf, push ups, planks, and kettlebell carry. He continues to show functional strength deficits and decreased scapular/RTC recruitment with overhead movements. At this time, pts shoulder is not able to tolerate heavy lifting required for work-related tasks. Patient would continue to benefit from skilled PT to continue to progress scapular strengthening, improve scapulo-humeral rhythm, incorporate lifting mechanics, and maximize his return to PLOF for return to work. Pt would benefit from physical therapy 1x/week for 8 weeks. Patient is in agreement with POC. Injury of glenoid labrum 09/26/2019 Rotator cuff syndrome of left shoulder 9 Assessment & Plan (07/22/2019 6:37 PM EDT): After injury at work 07/18/19 Evaluated in 07/19/19 --> Re-eval 07/22/19 Some improvement with home exercises, NSAID, however pain and limited ROM persist concern for risk of re-injury at work Plan: - PT referral - PCP follow up next week for re-assessment, hoping for return to work with restrictions but discussed with patietn that shoulder injuries can take time to heal Other obesity due to excess calories 07/17/2018 Chest pain 11/28/2016 Overview (03/30/2023): Pt reports a longstanding h/o CP brought on by stress and arguments with . Denies sxs c/w typical, anginal CP (radiates down the LUE, WHITNEY, exertional). No family h/o early CV dz or . Pt reported prior history of almost KS , upon review of ED visit, no dx of KS or anginal CP made. - Pt to f/u PRN if quality of CP worsens - Given that pt thinks that this may be r/t weight, counseling on diet and exercise given per below Decreased visual acuity 11/28/2016 Encounter for general adult medical examination with abnormal findings 11/28/2016 Overview (03/30/2023): General: BP Readings from Last 1 Encounters: 12/24/20 138/67 Counseling Diet: pt encouraged to contiue optimizing diet (small portion sizes, veggies) Exercise: pt encouraged to continue with exercises, stressed the importance of doing so for healthy weight maintenance Immunizations: none today Labs a1c, lipid panel Sex: STI testing today, pt w/ 1 partner (spouse) reports that she's contraception- unclear of which Immunizations Immunization Administration Dates Next Due Covid-19 Vaccine, (MODERNA R ED CAP_12+ PRIMARY SERIES), mRNA, intramuscular PF injection 12/13/2021,03/29/2021,03/01/2021 Hepatitis B, Adult 11/11/2022 Influenza, Seasonal, Injecta ble, with Preservative 09/12/2019,08/17/2018,07/24/2017 Influenza, injectable, MDCK, preservative free (FLUCELVAX TRIVALENT) 12/19/2024 Influenza, seasonal, injecta ble, preservative free 11/17/2020 MMR 11/11/2022,01/08/2018 TDAP 01/08/2018,07/24/2017 Varicella 11/11/2022 influenza vaccine (FLUCELVAX QUAD) intramuscular PF syringe (6 months and older) 11/11/2022 Family History Medical History Relation Name Comments Cancer Paternal Grandfather prostat e cancer Heart disease Paternal Grandmother Relation Name Status Comments Paternal Grandfather Paternal Grandmother Social History Tobacco Use Types Packs/Day Years Used Date Smoking Tobacco: Some Days Smokeless Tobacco: Never Alcohol Use Standard Drinks/Week Comments No 0 (1 standard drink = 0.6 oz pur e alcohol) rare Housing Answer Date Recorded What is your living situation today? I have a [place] [address] to live 04/28/2025 Medications Answer Date Recorded Do you have trouble paying for prescriptions? No 04/28/2025 Utilities Answer Date Recorded Do you have trouble paying f or utilites (heat, electricity, internet, or phone bill)? No 04/28/2025 Caregiving [place] Answer Date Recorded Taking care of a [...] Orientation Straight 04/05/2023 10 :29 PM EDT Last Filed Vital Signs Vital Sign Reading Time Taken Comments Blood Pressure 130/87 04/28/2025 2:17 PM EDT Pulse 82 04/28/2025 2:17 PM EDT Temperature 36.9 C (98.4 F) 11/24/2020 2:25 PM EST Respiratory Rate 20 08/17/2018 10:10 PM EDT Oxygen Saturation 97% 04/28/2025 2:17 PM EDT Inhaled Oxygen Concentration - - Weight 133.8 kg (295 lb) 04/28/2025 2:17 PM EDT Height 174 cm (5' 8.5 ) 12/19/2024 10:54 AM EST Body Mass Index 44.2 12/19/2024 10:54 AM EST Plan of Treatment Upcoming Encounters Date Type Department Care Team (Late st Contact Info) Description 10/13/2025 11:10 AM EST Office Visit [facility] [address] [place] [address] Winnie Hammond MD [address] [place] [address] Health Maintenance Due Date Last Done Comments Hepatitis B Lifetime Screening 1988 Tobacco Cessation Counseling (#1) 1988 Oral Health Screen 01/07/1989 HEIP Disability Screen 1993 Psych Substance Use Screen 2000 Pneumonia Vaccine 0-49 Years (1 of 2 - PCV) 2007 HPV VACCINES (1 - 3-dose SCDM series) 2015 COVID-19 Vaccine ( - 2024- season) 2025 12/13/2021, 03/29/2021, 03/01/2021 INFLUENZA VACCINE (#1) 2025 , 11/11/2022, 11/17/2020, Additional history exists BEHAVIORAL HEALTH SCREEN 10/28/2025 04/28/2025, 02/0 05/2022 THRIVE SCREENING 10/28/2025 04/28/2025 LIPID PANEL 12/19/2025 12/19/2024, 12/07, 12/24/2020 Diabetes Screening 12/19/2027 12/19/2024, 12/24/2020 DTAP/TDAP VACCINE (3 - Td or Tdap) 01/09/2028 01/08/2018, 07/24/2017 Zoster Vaccine (1 of 2) 2038 HIV Lifetime Screening Completed 12/24/2020, 2016 Hepatitis C Antibody Lifetime Screening Completed 12/24/2020 IPV VACCINES Aged Out No longer eligi ble based on patient's age to complete this topic MENINGOCOCCAL B Aged Out No longer el igible based on patient's age to complete this topic ROTAVIRUS VACCINES Aged Out No longer eligible based on patient's age to complete this topic Procedures Procedure Name Priority Date/Time Associated Diagnosis Comments LIPID PANEL Routine 12/19/2024 12:21 PM EST Encounter for routine adult health examination without abnormal findings HEMOGLOBIN A1C Routine 12/19/2024 12:21 PM EST Encounter for routine adult health examination without abnormal findings HEP C AB Routine 12/24/2020 3:41 PM EST Encounter for general adult medical examination with abnormal findings HIV 4TH GEN (HISTORICAL) Routine 12/24/2020 3:41 PM EST Encounter for general adult medical examination with abnormal findings from Last 3 Months or Most Recently Relevant to Health Maintenance Results * Hemoglobin a1c (12/19/2024 12:21 PM EST) Hemoglobin A1C 5.5 4.0 - 6.0 % 12/19/2024 1:55 PM EST [facility] Comment:The Hemoglobin A1c a ssay should not be used to diagnose or monitor diabetes in patients with altered red cell lifespan, such ashomozygous hemoglobin variants, Hb SC, HbF > 5%, and hemolytic anemia. 12/19/2024 12:2 1 PM EST 12/19/2024 12:23 PM EST us Winnie Hammond MD LAB BLOOD ORDERABLES Fin al Result [facility] CLIA#[id number] [address] [place] [address] * Lipid panel (12/19/2024 12:21 PM EST) Cholesterol 151 <200 mg/dL 12/19/2024 6:06 PM EST [facility] Comment:CHOLESTEROL RISK CLA SSIFICATION: <200 MG/DL = LOW RISK, 200 to 239 MG/DL = BORDERLINE/HIGH RISK, >239 MG/DL = HIGH RISK. Triglyceride 132 40 - 200 MG/DL 12/19/2024 6:06 PM EST [facility] HDL Cholesterol 42 >34 mg/dL 6:06 PM EST [facility] Comment:HDL CHOLESTEROL RISK CLASSIFICATION: >55 MG/DL = LOW RISK, <35 MG/DL = HIGH RISK. LDL Cholesterol,Kip holliday 83 <130 mg/dL 12/19/2024 6:06 PM EST [facility] Comment:LDL CHOLESTEROL RISK CLASSIFICATION: <130 MG/DL = LOW RISK, 130 to 159 MG/DL = BORDERLINE RISK, >159 MG/DL = HIGH RISK. 12/19/2024 12:2 1 PM EST 12/19/2024 12:23 PM EST us Winnie Hammond MD LAB BLOOD ORDERABLES Fin al Result [facility] CLIA [id number] [address] [place] [place] [address], * HIV 4Th Gen (Historical) (12/24/2020 3:41 PM EST) CHIV Nonreactive Nonreactive 12/25/2020 7:14 PM EST [facility] Blood (Blood) 12/24/2020 3:4 1 PM EST 12/24/2020 3:41 PM EST Narrative [facility] - 12/25/2020 7:14 PM EST patient is not fasting. us Anna Davila MD LAB BLOOD ORDERABLES Final R esult [facility] CLIA#[id number] [address] [place] [id number] * Hep C AB (Historical) (12/24/2020 3:41 PM EST) HEPATITIS C AB Nonreactive Nonreactive 12/25/2020 7:14 PM EST [facility] Blood (Blood) 12/24/2020 3:4 1 PM EST 12/24/2020 3:41 PM EST Narrative [facility] - 12/25/2020 7:14 PM EST patient is not fasting. us Anna Davila MD LAB BLOOD ORDERABLES Final R esult [facility] CLIA#[id number] [address] [place] [address] from Last 3 Months or Most Recently Relevant to Health Maintenance Care Teams Import And Export Clerk Relationship Specialty Start Date End Date Winnie Hammond MD PCP - General 03/12/21 Winnie Hammond MD [address] [place] [address] PCP - Insurance 02/12/25
== END 2025-08-29 14:28 | disposition home or self-care (01) ==
LOC: HO.NEURO 14:27
PROVIDERS: Visit Provider Internal Medicine
DX: M54.12 Radiculopathy, cervical region (principal)
CPT/HCPCS: 95886; 95909

== ENCOUNTER → 2025-08-29 14:32 | Outpatient (BNV) | payer OTHER, SELFPAY | PROVIDERS: Visit Provider Physical Medicine & Rehabilitation | DX: M54.12 Radiculopathy, cervical region (principal); R20.0 Anesthesia of skin | CPT/HCPCS: 95886; 95909 ==

== ENCOUNTER → 2025-09-15 11:11 | Outpatient (BNVA) | payer OTHER, SELFPAY | PROVIDERS: Visit Provider Internal Medicine | DX: M54.2 Cervicalgia (principal); M25.512 Pain in left shoulder; R20.0 Anesthesia of skin | CPT/HCPCS: 99213 ==

== ENCOUNTER 2025-09-16 13:03 | Outpatient (REF) | payer OTHER, SELFPAY ==
--- NOTE | ~2025-09-16 | XR_ITS ---
EXAMINATION: XR SHOULDER, LEFT CLINICAL INFORMATION: M25.519 - Pain in unspecified shoulder COMPARISON: June 06, 2025 TECHNIQUE: AP external rotation, Grashey, scapular Y, and axillary views of the left shoulder. FINDINGS: No acute cortical disruption or malalignment. No lytic or blastic lesions. No metallic or radiopaque foreign body. No soft tissue calcification. XR/XR shoulder LT min 2V IMPRESSION: Normal x-ray, left shoulder. Electronically signed by: Kavin San MD 09/16/2025 01:43 PM EST RP
--- OUTSIDE RECORDS SUMMARY | 2025-09-18 16:22 | XMS_ITS | Clinical Summary ---
Author Organization [facility] r Address [address] [place] [address] Phone Care Team Providers Care Demolitionist Name Role Phone Winnie Hammond MD Primary Care Provider + Winnie Hammond MD Unavailable [phone] Allergies No known active allergies Medications acetaminophen [...] internet, or phone bill)? No 04/28/2025 Caregiving [place] Answer Date Recorded Taking care of a [...] Description 10/13/2025 11:10 AM EST Office Visit [facility] [address] [place] [address] Winnie Hammond MD [address] [place] [address] Health Maintenance Due Date Last Done Comments [...] - 6.0 % 12/19/2024 1:55 PM EST [facility] Comment:The Hemoglobin A1c a ssay should not be used to diagnose or monitor diabetes in patients with altered red cell lifespan, such ashomozygous hemoglobin variants, Hb SC, HbF > 5%, and hemolytic anemia. 12/19/2024 12:2 1 PM EST 12/19/2024 12:23 PM EST us Winnie Hammond MD LAB BLOOD ORDERABLES Fin al Result [facility] CLIA#[id number] [address] [place] [address] * Lipid panel (12/19/2024 12:21 PM EST) [...] LAB BLOOD ORDERABLES Fin al Result [facility] CLIA [id number] [address] [place] [address], * HIV 4Th Gen (Historical) (12/24/2020 3:41 PM EST) CHIV Nonreactive Nonreactive 12/25/2020 7:14 PM EST [facility] Blood (Blood) 12/24/2020 3:4 1 PM EST 12/24/2020 3:41 PM EST Narrative [facility] - 12/25/2020 7:14 PM EST patient is not fasting. us Anna Davila MD LAB BLOOD ORDERABLES Final R esult [facility] CLIA#[id number] [address] [place] [address] * Hep C AB (Historical) (12/24/2020 3:41 PM EST) HEPATITIS C AB Nonreactive Nonreactive 12/25/2020 7:14 PM EST [facility] Blood (Blood) 12/24/2020 3:4 1 PM EST 12/24/2020 3:41 PM EST Narrative [facility] - 12/25/2020 7:14 PM EST patient is not fasting. us Anna Davila MD LAB BLOOD ORDERABLES Final R esult [facility] CLIA#[id number] [address] [place] [address] from Last 3 Months or Most Recently Relevant to Health Maintenance Care Teams Demolitionist Relationship Specialty Start Date End Date Winnie Hammond MD PCP - General 03/12/21 Winnie Hammond MD [address] [place] [address] PCP - Insurance 02/12/25
--- OUTSIDE RECORDS SUMMARY | 2025-09-18 16:22 | XMS_ITS | Encounter Summary ---
Author Organization [facility] r Address 1 [place] [address] Phone Care Team Providers Care Black Jack Dealer Name Role Phone Winnie Hammond MD Primary Care Provider + Winnie Hammond MD Unavailable [phone] Reason for Visit * Reason Comments Med Change Request Encounter Details Date Type Department Care Team (Late st Contact Info) Description 04/28/[address] [address] [place] [address] Social History Tobacco Use Types Packs/Day Years Used Date Smoking Tobacco: Some Days Smokeless Tobacco: Never Alcohol Use Standard Drinks/Week Comments No 0 (1 standard drink = 0.6 oz pur e alcohol) rare Housing Answer Date Recorded What is your living situation today? I have a [facility] to live 04/28/2025 Medications Answer Date Recorded Do you have trouble paying for prescriptions? No 04/28/2025 Utilities Answer Date Recorded Do you have trouble paying f or utilites (heat, electricity, internet, or phone bill)? No 04/28/2025 Caregiving [place] Answer Date Recorded Taking care of a [...] Description 10/13/2025 11:10 AM EST Office Visit [facility] [address] [place] [address] Winnie Hammond MD [address] [place] [address] documented as of this encounter Visit Diagnoses Not on filedocumented in this encounter Care Teams Black Jack Dealer Relationship Specialty Start Date End Date Winnie Hammond MD PCP - General 03/12/21 Winnie Hammond MD [address] [place] [address] PCP - Insurance 02/12/25 documented as of this encounter
--- OUTSIDE RECORDS SUMMARY | 2025-09-18 16:22 | XMS_ITS | Encounter Summary ---
Author Organization [facility] r Address 1 [place] [address] Phone Care Team Providers Care Assistant Attorney General Name Role Phone Winnie Hammond MD Primary Care Provider + Tisha Shields MD Unavailable Unavailable Winnie Hammond MD Unavailable [phone] Encounter Details Date Type Department Care Team (Late st Contact Info) Description 12/31/2024 Telephone [facility] [address] [place] [address] Winnie Hammond MD [address] [place] [address] Social History Tobacco Use Types Packs/Day Years Used Date Smoking Tobacco: Some Days Smokeless Tobacco: Never Alcohol Use Standard Drinks/Week Comments No 0 (1 standard drink = 0.6 oz pur e alcohol) rare Housing Answer Date Recorded What is your living situation today? I have a [facility] place to live 12/13/2021 Medications Answer Date Recorded Do you have trouble paying for prescriptions? No 12/13/2021 Utilities Answer Date Recorded Do you have trouble paying f or utilites (heat, electricity, internet, or phone bill)? No 12/13/2021 Caregiving [place] Answer Date Recorded Taking care of a [...] Description 10/13/2025 11:10 AM EST Office Visit [facility] [address] [place] [phone] Winnie Hammond MD [address] [place] [address] documented as of this encounter Visit Diagnoses Not on filedocumented in this encounter Care Teams Assistant Attorney General Relationship Specialty Start Date End Date Winnie Hammond MD PCP - General 03/12/21 Tisha Shields MD PCP - Insurance 08/08/24 02/11/25 Winnie Hammond MD [address] [place] [phone] PCP - Insurance 02/12/25 documented as of this encounter
--- OUTSIDE RECORDS SUMMARY | 2025-09-18 16:22 | XMS_ITS | Encounter Summary ---
Author Organization [facility] r Address [address] [place] [address] Phone Care Team Providers Care Environmental Emergencies Planner Name Role Phone Winnie Hammond MD Primary Care Provider + Tisha Shields MD Unavailable Unavailable Winnie Hammond MD Unavailable [phone] Reason for Visit * Reason Onset Date Comments Appointment 12/31/2024 Encounter Details Date Type Department Care Team (Late st Contact Info) Description 12/31/[address] [facility] [address] [place] [address] Gideon Olivas, MICHELLE [address] [place], [place] [phone] Appointment Social History Tobacco Use Types Packs/Day Years Used Date Smoking Tobacco: Some Days Smokeless Tobacco: Never Alcohol Use Standard Drinks/Week Comments No 0 (1 standard drink = 0.6 oz pur e alcohol) rare Housing Answer Date Recorded What is your living situation today? I have a [facility] place to live 12/13/2021 Medications Answer Date Recorded Do you have trouble paying for prescriptions? No 12/13/2021 Utilities Answer Date Recorded Do you have trouble paying f or utilites (heat, electricity, internet, or phone bill)? No 12/13/2021 Caregiving [place] Answer Date Recorded Taking care of a [...] EXAM on 01/02/2025. Best number to contact: [phone] documented in this encounter Plan of Treatment Upcoming Encounters Date Type Department Care Team (Late st Contact Info) Description 10/13/2025 11:10 AM EST Office Visit [address] [address] Winnie Hammond MD [address] [place] [address] documented as of this encounter Visit Diagnoses Not on filedocumented in this encounter Care Teams Environmental Emergencies Planner Relationship Specialty Start Date End Date Winnie Hammond MD PCP - General 03/12/21 Tisha Shields MD PCP - Insurance 08/08/24 02/11/25 Winnie Hammond MD [address] [place] [address] PCP - Insurance 02/12/25 documented as of this encounter
--- OUTSIDE RECORDS SUMMARY | 2025-09-18 16:22 | XMS_ITS | Encounter Summary ---
Author Organization [facility] r Address 1 [place] [address] Phone Care Team Providers Care Honing Machine Set Up Operator Name Role Phone Pcp-Confirmed, No Primary Care Provider Unavaila ble Winnie Hammond MD Primary Care Provider + Tisha Shields MD Unavailable Unavailable Winnie Hammond MD Unavailable [phone] Reason for Visit * Reason Onset Date Comments Other 12/17/2019 Pt is requesting a referral be faxed to [facility] (FAX: [phone]) Encounter Details Date Type Department Care Team (Late st Contact Info) Description 12/17/2019 Telephone Orthopaedic Surgery [address] [place] [address] Superintendent Production [facility] [place] [phone] Sang Jules MD [address] [place] [address], [place] [address] Other (Pt is requesting a referral be faxed to [facility] (FAX: [phone]) ) Social History Tobacco Use Types Packs/Day Years Used Date Smoking Tobacco: Never Smokeless Tobacco: Never Alcohol Use Standard Drinks/Week Comments Yes 0 (1 standard drink = 0.6 oz pur e alcohol) rare Housing Answer Date Recorded What is your living situation today? I have a [facility] to live 08/17/2018 Sex and Gender Information [...] is requesting a referral be faxed to [facility] (FAX: [phone]) Fact Finding Questions Reason for call comments field updated: Yes documented in this encounter Plan of Treatment Upcoming Encounters Date Type Department Care Team (Late st Contact Info) Description 10/13/2025 11:10 AM EST Office Visit [address] [address] Winnie Hammond MD [address] [place] [address] documented as of this encounter Visit Diagnoses Not on filedocumented in this encounter Additional Health Concerns Infection Onset Date Last Indicated Resolved Time COVID-19 Rule Out 08/04/2020 08/04/2020 08/04/2020 11:10 PM EDT documented as of this encounter Care Teams Honing Machine Set Up Operator Relationship Specialty Start Date End Date Pcp-Confirmed, No PCP - General 08/17/18 03/11/21 Winnie Hammond MD PCP - General 03/12/21 Tisha Shields MD PCP - Insurance 08/08/24 02/11/25 Winnie Hammond MD [address] [place] [address] PCP - Insurance 02/12/25 documented as of this encounter
--- OUTSIDE RECORDS SUMMARY | 2025-09-18 16:22 | XMS_ITS | Encounter Summary ---
Author Organization [facility] r Address 1 [place] [address] Phone Care Team Providers Care Ciaio Lumite Injector Name Role Phone Pcp-Confirmed, No Primary Care Provider Unavaila ble Winnie Hammond MD Primary Care Provider + Tisha Shields MD Unavailable Unavailable Winnie Hammond MD Unavailable [phone] Encounter Details Date Type Department Care Team (Late st Contact Info) Description 08/05/2020 Orders Only Oral Surgery [facility] [address] [facility] [address] [place] [phone] Bret Robles, DDS Social History Tobacco Use Types Packs/Day Years Used Date Smoking Tobacco: Light Smoker Smokeless Tobacco: Never Alcohol Use Standard Drinks/Week Comments Yes 0 (1 standard drink = 0.6 oz pur e alcohol) rare Housing Answer Date Recorded What is your living situation today? I have a [facility] to live 08/17/2018 Sex and [...] 11:10 AM EST Office Visit [facility] [address] [place] [address] Winnie Hammond MD [address] [place] [address] documented as of this encounter Visit Diagnoses Not on filedocumented in this encounter Care Teams Ciaio Lumite Injector Relationship Specialty Start Date End Date Pcp-Confirmed, No PCP - General 08/17/18 03/11/21 Winnie Hammond MD PCP - General 03/12/21 Tisha Shields MD PCP - Insurance 08/08/24 02/11/25 Winnie Hammond MD [address] [place] [address] PCP - Insurance 02/12/25 documented as of this encounter
--- OUTSIDE RECORDS SUMMARY | 2025-09-18 16:22 | XMS_ITS | Encounter Summary ---
Author Organization [facility] r Address 1 [place] [address] Phone Care Team Providers Care Informatics Consultant Name Role Phone Winnie Hammond MD Primary Care Provider + Tisha Shields MD Unavailable Unavailable Winnie Hammond MD Unavailable [phone] Reason for Visit * Reason Onset Date Comments Insurance Issues 12/05/2024 APPT FOR [facility]AR [facility] 12/19/2024 Encounter Details Date Type Department Care Team (Late st Contact Info) Description 12/05/[address] [facility] [address] [place] [address] Winnie Hammond MD [address] [place] [address] Insurance Issues (APPT FOR PRIMARYCARE 12/19/2024) Social History Tobacco Use Types Packs/Day Years Used Date Smoking Tobacco: Some Days Smokeless Tobacco: Never Alcohol Use Standard Drinks/Week Comments No 0 (1 standard drink = 0.6 oz pur e alcohol) rare Housing Answer Date Recorded What is your living situation today? I have a [facility] place to live 12/13/2021 Medications Answer Date Recorded Do you have trouble paying for prescriptions? No 12/13/2021 Utilities Answer Date Recorded Do you have trouble paying f or utilites (heat, electricity, internet, or phone bill)? No 12/13/2021 Caregiving [place] Answer Date Recorded Taking care of a [...] I CALLED PT AND I ROUTED TO [facility] I ALREADY LEFT A MESSEGE. documented in this encounter Plan of Treatment Upcoming Encounters Date Type Department Care Team (Late st Contact Info) Description 10/13/2025 11:10 AM EST Office Visit [address] [address] Winnie Hammond MD [address] [place] [address] documented as of this encounter Visit Diagnoses Not on filedocumented in this encounter Care Teams Informatics Consultant Relationship Specialty Start Date End Date Winnie Hammond MD PCP - General 03/12/21 Tisha Shields MD PCP - Insurance 08/08/24 02/11/25 Winnie Hammond MD [address] [place] [address] PCP - Insurance 02/12/25 documented as of this encounter
--- OUTSIDE RECORDS SUMMARY | 2025-09-18 16:22 | XMS_ITS | Encounter Summary ---
Author Organization [facility] r Address 1 [place] [address] Phone Care Team Providers Care Drug Room Operator Name Role Phone Winnie Hammond MD Primary Care Provider + Tisha Shields MD Unavailable Unavailable Winnie Hammond MD Unavailable [phone] Reason for Visit * Reason Onset Date Comments Insurance Issues 02/05/2025 Appt on 5 Encounter Details Date Type Department Care Team (Late st Contact Info) Description 02/05/[address] [facility] [address] [place] [address] Winnie Hammond MD [address] [place] [address] Insurance Issues (Appt on 02/19/25) Social History Tobacco Use Types Packs/Day Years Used Date Smoking Tobacco: Some Days Smokeless Tobacco: Never Alcohol Use Standard Drinks/Week Comments No 0 (1 standard drink = 0.6 oz pur e alcohol) rare Housing Answer Date Recorded What is your living situation today? I have a [facility] place to live 12/13/2021 Medications Answer Date Recorded Do you have trouble paying for prescriptions? No 12/13/2021 Utilities Answer Date Recorded Do you have trouble paying f or utilites (heat, electricity, internet, or phone bill)? No 12/13/2021 Caregiving [place] Answer Date Recorded Taking care of a [...] Description 10/13/2025 11:10 AM EST Office Visit [address] [address] Winnie Hammond MD [address] [place] [address] documented as of this encounter Visit Diagnoses Not on filedocumented in this encounter Care Teams Drug Room Operator Relationship Specialty Start Date End Date Winnie Hammond MD PCP - General 03/12/21 Tisha Shields MD PCP - Insurance 08/08/24 02/11/25 Winnie Hammond MD [address] [place] [address] PCP - Insurance 02/12/25 documented as of this encounter
--- OUTSIDE RECORDS SUMMARY | 2025-09-18 16:22 | XMS_ITS | Clinical Summary ---
Author Organization [facility] Address [address] [place] [address] Care Team Providers Care Weaving Professor Name Role Phone Winnie Brandon MD Primary Care Provider [phone] Source Comments PLEASE NOTE, if this patient [...] (FLONASE) 50 mcg/actuation nasal spray Place 1 [place] in both nostrils once daily 16 g [...] 7 Tablet 1 Active dextran 70-hypromellose (ARTIFICIAL TEARS,THDX77-SH PRO,) 0.1-0.3 % dropIndications :Dry eyes Place [...] . Pt reported prior history of almost GA , upon review of ED visit, no dx of GA or anginal CP made. - Pt to [...] Additional history exists Depression Annual Screen 11/06/2024 [id number] ( season) 2025 12/13/2021, 03/29/2021, 03/01/2021 Imm-Influenza [...] medical examination with abnormal findings Morbid obesity ([facility]) Body mass index 40.0-44.9, adult ([facility]) from Last 3 Months or Most Recently Relevant to Health Maintenance Results * Syphilis (for screening) (12/24/2020 3:41 PM EST) SYPH Non-Reacti ve Non-Reacti ve [facility] Comment: Interpretation: No serologic evidence of syphilis infection. If recent exposure is suspected, redraw sample in 2 to 4 weeks and repeat testing. Blood specimen (specimen) Blood / Unknown 12/24/2020 3:41 PM EST 12/24/2020 3:41 PM EST [facility] - 12/25/2020 4:35 PM EST patient is not fasting. us Anna Davila MD LAB - BLOOD DRAW Final Resul t [facility] CLIA# [id number] [address] [place] [address], [place] [phone] * HIV, 4th Generation (12/24/2020 3:41 PM EST) CHIV Nonreactive Nonreactive [facility] Serum Blood / Unknown 12/24/2020 3 :41 PM EST 12/24/2020 3:41 PM EST [facility] - 12/25/2020 7:14 PM EST patient is not fasting. us Anna Davila MD LAB - BLOOD DRAW Final Resul t Performing Organization Address City/[facility]/ZIP Co de Phone Number [facility] CLIA# [id number] [address] [place] [address], [place] [phone] * Hepatitis C Antibody (12/24/2020 3:41 PM EST) HEPATITIS C AB Nonreactive Nonreactive [facility] Serum Blood / Unknown 12/24/2020 3 :41 PM EST 12/24/2020 3:41 PM EST [facility] - 12/25/2020 7:14 PM EST patient is not fasting. us Anna Davila MD LAB - BLOOD DRAW Final Resul t [facility] CLIA# [id number] [address] [place] [address], * (ABNORMAL) A1C (12/24/2020 3:41 PM EST) HB1C 5.8(H) 4.8 - 5.6 % [facility] Comment: <5.7%: Normal Range 5.7-6.4%: Increased risk for Diabetes >6.5%: Diabetic Range Lowering Hemoglobin A1C to below or around 7% has been shown to reduce microvascular and neuropathic complications of Type 1 and Type 2 Diabetes. Therefore, for microvascular prevention, the Hemoglobin A1C goal for non- adults in general is less than 7% (2010 ADA) MEAN GLUC 120 mg/dL [facility] Whole blood specimen (specimen) Blood / Unknown 12/24/2020 3:41 PM EST 12/24/2020 3:41 PM EST Narrative [facility] - 12/24/2020 4:24 PM EST patient is not fasting. Anna Davila MD LAB - BLOOD DRAW Final Resul t [facility] CLIA# [id number] [address] [place] [address], from Last 3 Months or Most Recently Relevant to Health Maintenance Insurance [place] [facility] [employer] WORK[employer] Care Teams Weaving Professor Relationship Specialty Start Date End Date Winnie Brandon MD [address] [place] [address] PCP - General Family Medicine, Physician 03/12/21
--- OUTSIDE RECORDS SUMMARY | 2025-09-18 16:22 | XMS_ITS | Clinical Summary ---
Author Organization [facility] Address [address] [place] [address] Phone Care Team Providers Care Rouge Presser Name Role Phone Unknown, Unknown MD Primary Care Provider Manda Brink PT Unavailable [email or web address] Allergies No known active allergies Medications ibuprofen [...] topic Medical Devices Not on file Insurance [employer] Plan [employer] INSURANCE Care Teams Rouge Presser Relationship Specialty Start Date End Date Unknown, Unknown, PCP - General 12/01/20 Mnada Yates, PT Physical Therapist Physical Therapy 02/25/21 Additional Source Comments The information contained in this document represents components of the legal health record. It is not the complete legal health record.[facility]
--- OUTSIDE RECORDS SUMMARY | 2025-09-18 16:22 | XMS_ITS | Encounter Summary ---
Author Organization [facility] r Address 1 [place] [address] Phone Care Team Providers Care Electrician Helper Automotive Name Role Phone Pcp-Confirmed, No Primary Care Provider Unavaila ble Winnie Hammond MD Primary Care Provider + Tisha Shields MD Unavailable Unavailable Winnie Hammond MD Unavailable [phone] Encounter Details Date Type Department Care Team (Late st Contact Info) Description 07/29/2019 Orders Only [facility] [address] [place] [address] Winnie Hammond MD [address] [place] [address] Social History Tobacco Use Types Packs/Day Years Used Date Smoking Tobacco: Never Smokeless Tobacco: Never Alcohol Use Standard Drinks/Week Comments Yes 0 (1 standard drink = 0.6 oz pur e alcohol) rare Housing Answer Date Recorded What is your living situation today? I have a [facility] place to live 08/17/2018 Sex and Gender [...] Office Visit [facility] [address] [place] [phone] Winnie Hammond MD [address] [place] [address] documented as of this encounter Procedures Procedure [...] documented as of this encounter Care Teams Electrician Helper Automotive Relationship Specialty Start Date End Date Pcp-Confirmed, No PCP - General 08/17/18 03/11/21 Winnie Hammond MD PCP - General 03/12/21 Tisha Shields MD PCP - Insurance 08/08/24 02/11/25 Winnie Hammond MD [address] [place] [address] PCP - Insurance 02/12/25 documented as of this encounter
--- OUTSIDE RECORDS SUMMARY | 2025-09-18 16:22 | XMS_ITS | Encounter Summary ---
Author Organization [facility] r Address [address] [place] [address] Phone Care Team Providers Care Stamper Blocker Name Role Phone Pcp-Confirmed, No Primary Care Provider Unavaila ble Winnie Hammond MD Primary Care Provider + Tisha Shields MD Unavailable Unavailable Winnie Hammond MD Unavailable [phone] Reason for Visit * Reason Onset Date Comments Appointment 07/02/2020 Encounter Details Date Type Department Care Team (Late st Contact Info) Description 07/02/2020 Telephone Rehabilitation Therapies [address] [place] [phone] Mayi Genao R, [place] [address] Appointment Social History Tobacco Use Types Packs/Day Years Used Date Smoking Tobacco: Never Smokeless Tobacco: Never Alcohol Use Standard Drinks/Week Comments Yes 0 (1 standard drink = 0.6 oz pur e alcohol) rare Housing Answer Date Recorded What is your living situation today? I have a [facility] place to live 08/17/2018 Sex and Gender [...] Description 10/13/2025 11:10 AM EST Office Visit [facility] [address] [place] [phone] Winnie Hammond MD [address] [place] [address] documented as of this encounter Visit Diagnoses Not on filedocumented in this encounter Additional Health Concerns Infection Onset Date Last Indicated Resolved Time COVID-19 Rule Out 08/04/2020 08/04/2020 08/04/2020 11:10 PM EDT documented as of this encounter Care Teams Stamper Blocker Relationship Specialty Start Date End Date Pcp-Confirmed, No PCP - General 08/17/18 03/11/21 Winnie Hammond MD PCP - General 03/12/21 Tisha Shields MD PCP - Insurance 08/08/24 02/11/25 Winnie Hammond MD [address] [place] [address] PCP - Insurance 02/12/25 documented as of this encounter
== END 2025-09-16 13:04 | disposition home or self-care (01) ==
LOC: HO.HOSX 13:03
PROVIDERS: Visit Provider Physician Assistant
DX: M75.102 Unspecified rotator cuff tear or rupture of left shoulder, not specified as traumatic (principal)
CPT/HCPCS: 20610; 73030; 99202; J0665; J1100; J2003

== ENCOUNTER 2025-09-16 13:33 | Outpatient (AMB) | payer OTHER, SELFPAY ==
--- NOTE | 2025-09-16 13:41 | A.OFFVIS_ITS ---
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 Patient reports ongoing pain since 04/17/25. He notices numbness in his index finger and thumb. Allergies No Known Allergies Allergy (Verified 09/16/25 14:25) HPI HPI MANAGER CLIENT SERVICE-Lt shoulder RTC impingment WC DOI: 04/17/25: Details: Mr. Bustamante is a 35-year-old right-hand dominant male who presents to the office today for evaluation of a left shoulder injury that he sustained while at work on 04/17/2025. 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 After he was done with his work he developed left shoulder pain. He has been attending physical therapy with some relief. He has noticed an increase in his range of motion and has been gradually building his strength. Additionally, he reports that he has noticed some stiffness in his neck as well as numbness and tingling in the thumb and index finger. [facility] Social History (Updated 09/16/25 @ 14:26 by Layla Henry) Alcohol intake: never Patient Tobacco Use Status: Never used Tobacco Substance Use Type: Marijuana Current occupation: right hand dominant Review of Systems Const All systems reviewed & are unremarkable except as noted in HPI and below Physical Exam Const General: cooperative, healthy appearing and no acute distress Resp Effort & Inspection: normal respiratory effort and able to speak in complete sentences Extrem Other: Left shoulder: Full shoulder ROM in all planes. Negative cross-body reach. Negative empty can. Negative drop arm. NVI. Psych Appearance: grossly normal Mental Status: mental status grossly normal Attitude: cooperative Office Procedures AMB Joint Injection/Aspiration Joint Injection/Aspiration Primary Site: left shoulder Prep: site was prepped using aseptic technique, ethochloride spray was applied and injection warnings given Injected: 40 mg of, with 3 mL of, 1% plain lidocaine, 0.25% bupivacaine, in the subcromial space and decadron Approach Used: posterolateral Procedure: The patient tolerated the procedure well, but had some pain with the injection and there was some relief with the local anesthesia Coding 86004 - Large joint Procedure code (CPT) selection complete Assessment & Plan Assessment & Plan (1) Painful arc syndrome of left shoulder: Code(s): M75.102 - Unspecified rotator cuff tear or rupture of left shoulder, not specified as traumatic Category: Medical Plan Mr. Bustamante is a 35-year-old right-hand dominant male who presents to the office today for evaluation of a left shoulder injury that he sustained while at work on 04/17/2025. 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 After he was done with his work he developed left shoulder pain. He has been attending physical therapy with some relief. He has noticed an increase in his range of motion and has been gradually building his strength. Additionally, he reports that he has noticed some stiffness in his neck as well as numbness and tingling in the thumb and index finger. While in the office today, we discussed the role of continuation and physical therapy partner with a cortisone injection. The patient was offered a cortisone injection in the left shoulder. The patient was explained the risks, benefits, and alternatives to receiving this injection. After receiving consent for the injection, the patient had the procedure done while in the office today. The patient tolerated the procedure well with no complications. Additionally, the patient is reporting symptoms such as neck stiffness and radiation of pain as well as numbness and tingling down the entire left upper extremity into the index and thumb. I would like Dr. Landon to evaluate this patient for the possibility of a neurological component to this patient's pain. Additionally, I reviewed the MRI of the left shoulder that was obtained on 06/19/2025 which was significant for painful arc syndrome. No surgical intervention is needed at this time. Therefore, he will continue with physical therapy and follow up PRN, sooner if needed. X-rays of the Left shoulder which were obtained while in the office today and were reviewed by me, Wendy Ramos PA-C, revealed no acute fracture or dislocation. MRI of the left shoulder obtained on 06/19/2025: IMPRESSION: Spurring inferior acromioclavicular joint causing likely impingement syndrome upon the supraspinatus myotendinous fibers. Consider long head of biceps tendinitis/tenosynovitis versus adhesive capsulitis Orders: Orders XR shoulder LT min 2V Today M25.519 - Pain in unspecified shoulder Coding Level of Care Code New Pt Level 3 (28613) Diagnoses Painful arc syndrome of left shoulder M75.102 CPT Codes Coding - 35542 Large joint: 23704 - Large joint ([id number])
--- OUTSIDE RECORDS SUMMARY | 2025-09-16 15:14 | XMS_ITS | Clinical Summary ---
Author Organization [facility] Address [address] [place] [address] Phone Care Team Providers Care Copy Worker Name Role Phone Unknown, Unknown MD Primary Care Provider Manda Brink PT Unavailable [email or web address] Allergies No known active allergies Medications ibuprofen [...] on patient's age to complete this topic IPV VACCINES Aged Out No longer eligi [...] topic Medical Devices Not on file Insurance [employer]ANCE Care Teams Copy Worker Relationship Specialty Start Date End Date Unknown, Unknown, PCP - General 12/01/20 Manda Yates, PT Physical Therapist Physical Therapy 02/25/21 Additional Source Comments The information contained in this document represents components of the legal health record. It is not the complete legal health record.[facility]
== END 2025-09-16 14:26 | disposition home or self-care (01) ==
LOC: HO.HOS 13:33
PROVIDERS: Visit Provider Physician Assistant
DX: M75.102 Unspecified rotator cuff tear or rupture of left shoulder, not specified as traumatic (principal)
CPT/HCPCS: 20610; 99203

== ENCOUNTER → 2025-09-16 13:35 | Outpatient (BNV) | payer OTHER, SELFPAY | PROVIDERS: Visit Provider Radiology Diagnostic Radiology | DX: M25.512 Pain in left shoulder (principal) | CPT/HCPCS: 73030 ==

== ENCOUNTER → 2025-09-26 11:12 | Outpatient (BNVA) | payer OTHER, SELFPAY | PROVIDERS: Visit Provider Internal Medicine | DX: M54.12 Radiculopathy, cervical region (principal) | CPT/HCPCS: 72050; 99214 ==

== ENCOUNTER → 2025-10-20 10:33 | Outpatient (BNVA) | payer OTHER, SELFPAY | PROVIDERS: Visit Provider Internal Medicine | DX: M54.2 Cervicalgia (principal); M25.812 Other specified joint disorders, left shoulder | CPT/HCPCS: 99213 ==

== ENCOUNTER → 2025-10-27 10:08 | Outpatient (BNVA) | payer OTHER, SELFPAY | PROVIDERS: Visit Provider Internal Medicine | DX: M25.812 Other specified joint disorders, left shoulder (principal); Z02.79 Encounter for issue of other medical certificate | CPT/HCPCS: 99213 ==